=== PATIENT | male | born 1940 | race Caucasian/White ===

== ENCOUNTER 2016-08-10 21:24 | Inpatient (IN) | payer OTHER, BC ==
[2016-08-10] MEDS ORDERED: SODIUM CHLORIDE 1,000 ML IV STA (21:47)
[2016-08-10] MEDS ORDERED: FAMOTIDINE 20 MG/50 ML IVPB 50 ML IVPB ONE ×2 (21:48→21:51)
--- NOTE | 2016-08-10 21:50 | PDOC ---
History of Present Illness <Corwin Hines - Last Filed: 08/11/16 01:13> - General History Source: Patient, Family Exam Limitations: No Limitations - History of Present Illness Initial Comments: 08/10/16 21:55 The patient is a 76 year old male with significant past medical history of GERD , peptic ulcers, and vertigo who presents to the ED with epigastric pain that began earlier this morning. Patient reports he was in his usual state of health last night prior to going to bed. After having breakfast this morning, he developed epigastric pain that he describes as band-like radiating to the back. His pain subsided on its own, but never went away. After having dinner today, his epigastric pain worsened. He denies nausea, vomiting, and diarrhea. He states his last normal bowel movement was today. Patient also has complaints of chills, but no fever. The patient denies cough, SOB, chest pain, and palpitations. Allergies: NKDA Social History: No alcohol, tobacco, or drug use reported. Past Surgical History: None reported PCP: Dr. James Cordova <Leanna Minor - Last Filed: 08/11/16 01:15> - General Chief Complaint: Pain Stated Complaint: ABD PAIN Time Seen by Provider: 08/10/16 21:36 Past History - Past Medical History Diabetes: (borderline) GI Disorders: Yes - Immunization History Immunization Up to Date: Yes - Psycho/Social/Smoking Cessation Hx Suicidal Ideation: No Smoking History: Never smoked Have you smoked in the past 12 months: No Hx Alcohol Use: No Drug/Substance Use Hx: No Substance Use Type: None <Corwin Hines - Last Filed: 08/11/16 01:13> <Leanna Minor - Last Filed: 08/11/16 01:15> - Past Medical History Allergies/Adverse Reactions: Allergies Allergy/AdvReac Type Severity Reaction Status Date / Time No Known Allergies Allergy Verified 12/04/15 20:28 Home Medications: Ambulatory Orders Ipratropium 0.02% Nebulizer [Atrovent 0.02% Nebulizer -] 2 inh IH TID 12/03/15 Omeprazole [Prilosec] 40 mg PO DAILY 12/03/15 Ipratropium 0.02% Nebulizer [Atrovent 0.02% Nebulizer -] 0.5 mg IH TID 7 Days Ondansetron [Zofran Odt -] 4 mg SL TID PRN #21 od.tablet 12/04/15 Lisinopril [Prinivil] 5 mg PO DAILY #20 tablet 12/06/15 Meclizine HCl [Antivert -] 25 mg PO Q6HPO PRN #30 tablet 12/06/15 Review of Systems - Review of Systems Able to Perform ROS?: Yes Comments:: 08/10/16 21:55 +epigastric pain radiating to back, chills Absent: fever, diaphoresis, cough, SOB, chest pain, nausea, vomiting, and diarrhea <Leanna Minor - Last Filed: 08/11/16 01:15> *Physical Exam - Vital Signs Last Vital Signs Temp Pulse Resp BP Pulse Ox 100.1 F H 106 H 19 148/81 96 08/10/16 21:37 08/10/16 21:37 08/10/16 21:37 08/10/16 21:37 08/10/16 21:37 - Physical Exam General Appearance: Yes: Nourished, Appropriately Dressed. No: Apparent Distress HEENT: positive: Normal ENT Inspection Neck: positive: Supple. negative: Tender Respiratory/Chest: positive: Lungs Clear, Normal Breath Sounds. negative: Respiratory Distress Cardiovascular: positive: Regular Rhythm, Regular Rate Gastrointestinal/Abdominal: positive: Normal Bowel Sounds, Soft. negative: Tender Musculoskeletal: positive: Normal Inspection. negative: CVA Tenderness Extremity: positive: Normal Capillary Refill, Normal Range of Motion Integumentary: positive: Normal Color, Rash (rt 12th dermatome residual herpetic lesions). negative: Ecchymosis Neurologic: positive: Fully Oriented, Alert, Normal Mood/Affect, Normal Response , Motor Strength 5/5 <Corwin Hines - Last Filed: 08/11/16 01:13> - Vital Signs Last Vital Signs Temp Pulse Resp BP Pulse Ox 100.1 F H 106 H 19 148/81 96 08/10/16 21:37 08/10/16 21:37 08/10/16 21:37 08/10/16 21:37 08/10/16 21:37 <Leanna Minor - Last Filed: 08/11/16 01:15> Heart Score/ECG Review - ECG Impressions Comment:: 08/10/16 22:48 Sinus tachycardia @115bpm Otherwise normal ECG <AntonioPolly sanzvita - Last Filed: 08/11/16 01:15> ED Treatment Course - LABORATORY CBC & Chemistry Diagram: 08/10/16 22:00 08/10/16 22:00 <Corwin Hines - Last Filed: 08/11/16 01:13> - LABORATORY CBC & Chemistry Diagram: 08/10/16 22:00 08/10/16 22:00 - RADIOLOGY Radiograph Interpretation: 08/11/16 01:01 EXAM: Ultrasound abdomen limited, right upper quadrant Reviewed by Imaging quality control associate: FINDINGS: The liver is normal, without mass or biliary duct dilation. There are gallstones , sludge and wall thickening up to 4 mm. And is moderately suspicious for cholecystitis.. The CBD is dilated and [id number] millimeters in diameter, which could be due to a nonvisualized CBD stone. Right kidney measures 10.1centimeters in length and is unremarkable. The visualized aorta and IVC are normal. Pancreas is obscured. IMPRESSION: Moderate suspicion for cholecystitis with dilated CBD, which could indicate a distal nonvisualized CBD stone. Consider further evaluation with HIDA scan or MRCP. <Polly Minorvita - Last Filed: 08/11/16 01:15> Progress Note - Progress Note Progress Note: Remains asymptomatic and w/ normal exam labs are non specific and wnl except for 22 BUN continue hydration PMD informed, who wanted a hida scan which i informed we can't do. he does have hx of "sludge in the GB" but w/ no tenderness and no pain recurrence, will not keep until am for it. Will check lft's if d/c, pt will follow up at 8:30 am with his doctor 12:25 am elevated LFT's. US ordered 1:05 am acute cholecystitis d/w dr Cordova he wants dr. tobar to be called will admit to hospitalist <Corwin Hines - Last Filed: 08/11/16 01:13> Medical Decision Making - Medical Decision Making 08/10/16 23:[address] James Cordova (via answering service) at 23:08 and case was discussed Paged Dr. Cordova at 1:00 and case was discussed. 08/11/16 01:[address] Joselito Tobar (via answering service) at 1:05. Awaiting call back Patient's case was discussed with Dr. Tobar at 1:07 <Leanna Minor - Last Filed: 08/11/16 01:15> *DC/Admit/Observation/Transfer - Discharge Dispostion Admit: Yes <Corwin Hines - Last Filed: 08/11/16 01:13> - Attestations Scribe Attestion: 08/10/16 21:55 Documentation prepared by Leanna Minor, acting as medical translator for Corwin Hines MD. <Leanna Minor - Last Filed: 08/11/16 01:15> Diagnosis at time of Disposition: Acute cholecystitis due to biliary calculus Diagnosis at time of Disposition: (Ruled Out): Acute (undifferentiated) schizophrenia - Discharge Dispostion Condition at time of disposition: Good - Referrals Referrals: James Cordova MD [Primary Care Provider] -
[2016-08-10 22:06] LABS: BASOPHIL 0.1 % (0-2.0); EOSINOPHIL 0.1 % (0-4.5); MCH 31.9 pg (25.7-33.7); MCHC 33.4 g/dl (32.0-35.9); MEAN CELL VOLUME 95.6 fl (80-96); MEAN PLT VOLUME 7.7 fl (7.5-11.1); NEUTROPHILS 96.1 % (42.8-82.8); PLATELET COUNT 183 K/MM3 (134-434); RDW 13.4 % (11.9-15.9); WHITE BLOOD COUNT 10.6 K/mm3 (4.0-10.0)
[2016-08-10 22:50] LABS: CALCIUM 8.8 mg/dL (8.5-10.1); CREATININE 0.8 mg/dL (0.7-1.3)
[2016-08-11] LABS: ALBUMIN 3.7 g/dl (3.4-5.0); BILIRUBIN,TOTAL 1.7 mg/dL (0.2-1.0); TOT PROT 7.1 g/dl (6.4-8.2)
[2016-08-11 00:37] LABS: URINE APPEARANCE CLEAR; URINE BILIRUBIN NEGATIVE (NEGATIVE); URINE BLOOD NEGATIVE (NEGATIVE); URINE COLOR YELLOW; URINE GLUCOSE (UA) NEGATIVE (NEGATIVE); URINE KETONE NEGATIVE (NEGATIVE); URINE LEUK ESTERASE NEGATIVE (NEGATIVE); URINE NITRITE NEGATIVE (NEGATIVE); URINE PROTEIN NEGATIVE (NEGATIVE); URINE UROBILINOGEN NEGATIVE E.U./dl (0.2-1.0)
[2016-08-11] MEDS ORDERED: PIPERACILLIN/TAZOB 4.5 GM/100 ML PRE-DOCKED IVPB ONE (00:58)
[2016-08-11] MEDS ORDERED: METRONIDAZOLE PREMIXED IVPB 50 ML IVPB ONE (01:01)
[2016-08-11] MEDS ORDERED: PIPERACILLIN/TAZOB 4.5 GM 100 ML IVPB ONE (01:12)
[2016-08-11] MEDS ORDERED: METRONIDAZOLE 500 MG PREMIXED 100 ML IVPB ONE (01:12)
[2016-08-11] MEDS ORDERED: metroNIDAZOLE 250 MG TABLET ONE (01:23)
[2016-08-11] MEDS ORDERED: ONDANSETRON 4 MG/2 ML VIAL IVPB PRN (01:25)
[2016-08-11] MEDS ORDERED: morphine CARPU-JECT 2 MG/1 ML DISP.SYRIN IVPUSH PRN (01:25)
[2016-08-11] MEDS ORDERED: SODIUM CHLORIDE 1,000 ML IV SCH ×3 (01:30→09:33)
--- NOTE | 2016-08-11 02:28 | HP ---
CHIEF COMPLAINT: epigastric pain PCP: Dr. Cordova HISTORY OF PRESENT ILLNESS: This is a 76 year old male with a past medical history of GERD, vertigo, HTN, kidney stone, shingles with post-herpetic neuralgia who presented to the ED with epigastric pain since earlier in AM. The pain started after breakfast and then improved on its own but again worsened after dinner. Pt states the pain has almost completely resolved but nausea and "bad taste in mouth" has persisted. ER course was notable for: (1) US c/w cholecystitis (2) WBC 10.6, temp 100.1 (3) normal UA Recent Travel: none PAST MEDICAL HISTORY: GERD vertigo November 2015 kidney stones February 2016 shingles February 2016 with postherpetic neuralgia HTN-was instructed by PCP last week to restart antiHTN but didn't PAST SURGICAL HISTORY: Left inguinal? hernia repair Social History: Smoking: pt denies Alcohol: pt denies Drugs: pt denies Family History: Mother age 82, brain tumor, had cholecystectomy Father age 54, unknown cause, had DM sister age 67, CVA sister age 60, blood cancer 2 or 3 sisters with cholecystectomy Allergies No Known Allergies Allergy (Verified 12/04/15 20:28) HOME MEDICATIONS: 3 Medication Instructions Recorded Omeprazole [Prilosec] 40 mg PO DAILY 12/03/15 Pregabalin [Lyrica -] 150 mg PO TID 08/11/16 REVIEW OF SYSTEMS CONSTITUTIONAL: Absent: fever, chills, diaphoresis, generalized weakness, malaise, loss of appetite, weight change HEENT: Absent: rhinorrhea, nasal congestion, throat pain, throat swelling, difficulty swallowing, mouth swelling, ear pain, eye pain, visual changes CARDIOVASCULAR: Absent: chest pain, syncope, palpitations, irregular heart rate, lightheadedness , peripheral edema RESPIRATORY: Absent: cough, shortness of breath, dyspnea with exertion, orthopnea, wheezing, stridor, hemoptysis GASTROINTESTINAL: Present: abdominal pain, nausea Absent: abdominal distension, vomiting, diarrhea, constipation, melena, hematochezia GENITOURINARY: Absent: dysuria, frequency, urgency, hesitancy, hematuria, flank pain, genital pain MUSCULOSKELETAL: Absent: myalgia, arthralgia, joint swelling, back pain, neck pain SKIN: Absent: rash, itching, pallor HEMATOLOGIC/IMMUNOLOGIC: Absent: easy bleeding, easy bruising, lymphadenopathy, frequent infections ENDOCRINE: Absent: unexplained weight gain, unexplained weight loss, heat intolerance, cold intolerance NEUROLOGIC: Absent: headache, focal weakness or paresthesias, dizziness, unsteady gait, seizure, mental status changes, bladder or bowel incontinence PSYCHIATRIC: Absent: anxiety, depression, suicidal or homicidal ideation, hallucinations. PHYSICAL EXAMINATION Vital Signs - 24 hr 3 08/10/16 21:37 Temperature 100.1 F H Pulse Rate 106 H Respiratory 19 Rate Blood Pressure 148/81 O2 Sat by Pulse 96 Oximetry (%) GENERAL: Awake, alert, and fully oriented, in no acute distress. HEAD: Normal with no signs of trauma. EYES: Pupils equal, round and reactive to light, extraocular movements intact, sclera anicteric, conjunctiva clear. No lid lag. EARS, NOSE, THROAT: Ears normal, nares patent, oropharynx clear without exudates. Moist mucous membranes. NECK: Normal range of motion, supple without lymphadenopathy, JVD, or masses. LUNGS: Breath sounds equal, clear to auscultation bilaterally. No wheezes, and no crackles. No accessory muscle use. HEART: Regular rate and rhythm, normal S1 and S2 without murmur, rub or gallop. ABDOMEN: Soft, nontender, not distended, normoactive bowel sounds, no guarding, no rebound, no masses. No hepatomegaly or splenomegaly. MUSCULOSKELETAL: Normal range of motion at all joints. No bony deformities or tenderness. No CVA tenderness. UPPER EXTREMITIES: 2+ pulses, warm, well-perfused. No cyanosis. No clubbing. Cap refill <2 seconds. No peripheral edema. LOWER EXTREMITIES: 2+ pulses, warm, well-perfused. No calf tenderness. No peripheral edema. NEUROLOGICAL: Cranial nerves II-XII intact. Normal speech. Normal gait. PSYCHIATRIC: Cooperative. Good eye contact. Appropriate mood and affect. SKIN: Warm, dry, normal turgor, no rashes or lesions noted. Right flank and right lower libs noted with scarring from previous shingles, no active blisters or lesions Laboratory Results - last 24 hr 3 08/10/16 08/10/16 08/10/16 22:00 22:00 23:33 WBC 10.6 H D RBC 3.80 L Hgb 12.1 Hct 36.4 MCV 95.6 MCHC 33.4 RDW 13.4 Plt Count 183 MPV 7.7 Neutrophils % 96.1 H Lymphocytes % 2.7 L D Monocytes % 1.0 L Eosinophils % 0.1 D Basophils % 0.1 Sodium 140 Potassium 3.8 Chloride 105 Carbon Dioxide 26 Anion Gap 9 BUN 22 H D Creatinine 0.8 Random Glucose 130 H D Calcium 8.8 Total Bilirubin 1.7 H D Direct Bilirubin 1.0 H AST 621 H D ALT 309 H D Alkaline Phosphatase 220 H D Total Protein 7.1 Albumin 3.7 Lipase 95 Urine Color Urine Appearance Urine pH Ur Specific [place] Urine Protein Urine Glucose (UA) Urine Ketones Urine Blood Urine Nitrite Urine Bilirubin Urine Urobilinogen Ur Leukocyte Esterase 3 Urine Color Yellow 08/11/16 00:01 Urine Appearance Clear 08/11/16 00:01 Urine pH 7.0 (5.0-8.0) 08/11/16 00:01 Ur Specific [place] 1.012 (1.001-1.035) 08/11/16 00:01 Urine Protein Negative (NEGATIVE) 08/11/16 00:01 Urine Glucose (UA) Negative (NEGATIVE) 08/11/16 00:01 Urine Ketones Negative (NEGATIVE) 08/11/16 00:01 Urine Blood Negative (NEGATIVE) 08/11/16 00:01 Urine Nitrite Negative (NEGATIVE) 08/11/16 00:01 Urine Bilirubin Negative (NEGATIVE) 08/11/16 00:01 Ur Leukocyte Esterase Negative (NEGATIVE) 08/11/16 00:01 ECG: sinus tachy, rate 115, QTC 456, no ST/T wave changes CXR: Impression: No significant interval change or acute lung disease is present. US abd limited: Impression: Moderate suspicion for cholecystitis with dilated CBD, which could indicate a distal nonvisualized CBD stone. ASSESSMENT/PLAN: 76yM with PMH GERD, vertigo, shingles, post-herpetic neuralgia, HTN presented with epigastric pain. He is being admitted for further evaluation and treatment of cholecystitis/cholelithiasis. Sepsis secondary to cholecystitis - + fever, tachycardia, leukocytosis - levaquin 500mg QD, flagyl 500mg Q8H - NPO - MRCP given significant elevation of LFTs with hyperbilirubinemia to r/o choledocholithiasis - surgical consult HTN - restart home lisinopril 5mg, monitor BP, hold if SBP less than 110 post-herpetic neuralgia - cont home lyrica GERD - home prilosec changed to formulary protonix FEN - NS@75cc/hr - REpeat BMP with LFTS in am. - NPO DVT prophylaxis - mod risk, but defer heparin for now as will likely need surgery Dispo: Pt currently requires inpatient care. 640AM Addendum PCP Dr. James Cordova requested update at 630 am. Case DW PCP who Requests HIDA scan. Advised PCP that MRCP will show CBD and no need for HIDA as sono has already shown acute cholecystitis. PCP adamant that HIDA scan be ordered and GI consult with Dr. Lowe ONLY. Orders placed. Visit type - Emergency Visit Emergency Visit: Yes ED Registration Date: 08/10/16 Care time: The patient presented to the Emergency Department on the above date and was hospitalized for further evaluation of their emergent condition. - New Patient This patient is new to me today: Yes Date on this admission: 08/11/16 - Critical Care Critical Care patient: No
[2016-08-11 04:22] VITALS: BMI 23.6
[2016-08-11 07:30] LABS: BASOPHIL 0.1 % (0-2.0); MCH 32.2 pg (25.7-33.7); MCHC 33.8 g/dl (32.0-35.9); MEAN CELL VOLUME 95.3 fl (80-96); MEAN PLT VOLUME 7.4 fl (7.5-11.1); NEUTROPHILS 93.3 % (42.8-82.8); PLATELET COUNT 150 K/MM3 (134-434); RDW 13.4 % (11.9-15.9); WHITE BLOOD COUNT 16.1 K/mm3 (4.0-10.0)
[2016-08-11] MEDS ORDERED: LEVOFLOXACIN 500 MG IVPB 100 ML IVPB SCH ×2 (08:00→10:00)
[2016-08-11 08:15] LABS: ALK PHOS 235 U/L (45-117); AMYLASE 23 U/L (25-115); ANION GAP 10 (8-16); BILIRUBIN,TOTAL 2.5 mg/dL (0.2-1.0); CALCIUM 8.3 mg/dL (8.5-10.1); CO2 24 mmol/L (21-32); CREATININE 0.9 mg/dL (0.7-1.3); GLUCOSE,RANDOM 133 mg/dL (74-106); MAGNESIUM 1.7 mg/dL (1.8-2.4); PHOSPHOROUS 1.9 mg/dL (2.5-4.9)
[2016-08-11 08:24] LABS: SGOT/AST 1454 U/L (15-37); SGPT/ALT 967 U/L (12-78)
[2016-08-11 09:05] LABS: INR 1.43 (0.82-1.09); PROTHROMBIN TIME (PATIENT) 15.9 SEC (9.98-11.88)
[2016-08-11 09:08] LABS: ACTIVATED PTT 29.6 SECONDS (26.9-34.4)
[2016-08-11] MEDS ORDERED: PIPERACILLIN/TAZOB 3.375 GM/50 ML PRE-DOCKED IVPB STA (09:08)
[2016-08-11] MEDS ORDERED: METRONIDAZOLE 500 MG PREMIXED 100 ML IVPB SCH (10:00)
[2016-08-11] MEDS ORDERED: PATIENT'S OWN MEDICATION (NON-FORMULARY) (Omeprazole [Prilosec] 40 MG) PO SCH (10:00)
--- NOTE | 2016-08-11 10:00 | CONSULT ---
Consultation: REQUESTING PROVIDER: Dr. Tobar, general surgery CONSULT REQUEST: We have been asked to surgically evaluate this patient for Cholecystitis. HISTORY OF PRESENT ILLNESS: 76 yo M presented to [facility] 08/10/16 complaining of epigastric abdominal pain. Patient has experienced this pain before, but states it worsened yesterday after eating yogurt for breakfast and potatoes for lunch. The pain radiates throughout his abdomen and to his back. The patient states he was previously seen by GI as an outpatient, but states "nothing was found". The patient states his pain is improving today. He had some associated nausea, denies vomiting, diarrhea, constipation, fever, chills. Last meal was lunchtime yesterday, last BM was yesterday and solid. Patient states he does take Prilosec. PMH: GERD, peptic ulcers, shingles February 2016 PSH: Left inguinal hernia repair PCP: Dr. James Cordova Social: Denies tobacco or alcohol use Allergies: NKDA Medications: Medication Instructions Recorded Omeprazole [Prilosec] 40 mg PO DAILY 12/03/15 Pregabalin [Lyrica -] 150 mg PO TID 08/11/16 REVIEW OF SYSTEMS: CONSTITUTIONAL: Absent: fever, chills, diaphoresis, generalized weakness, malaise, loss of appetite, weight change CARDIOVASCULAR: Absent: chest pain, syncope, palpitations, irregular heart rate, lightheadedness , peripheral edema RESPIRATORY: Absent: cough, shortness of breath, dyspnea with exertion, orthopnea, wheezing, stridor, hemoptysis GASTROINTESTINAL: Present: abdominal pain/epigastric Absent: abdominal distension, nausea, vomiting, diarrhea, constipation, melena, hematochezia GENITOURINARY: Absent: dysuria, frequency, urgency, hesitancy, hematuria, flank pain, genital pain MUSCULOSKELETAL: Absent: myalgia, arthralgia, joint swelling, back pain, neck pain SKIN: Absent: rash, itching, pallor HEMATOLOGIC/IMMUNOLOGIC: Absent: easy bleeding, easy bruising, lymphadenopathy, frequent infections NEUROLOGIC: Absent: headache, focal weakness or paresthesias, dizziness, unsteady gait, seizure, mental status changes, bladder or bowel incontinence PSYCHIATRIC: Absent: anxiety, depression, suicidal or homicidal ideation, hallucinations. PHYSICAL EXAMINATION Vital Signs Temperature 99.3 F 08/11/16 05:37 Pulse Rate 105 H 08/11/16 05:37 Respiratory Rate 19 08/11/16 05:37 Blood Pressure 118/79 08/11/16 05:37 O2 Sat by Pulse Oximetry (%) 97 08/11/16 03:34 GENERAL: Awake, alert, and fully oriented, in no acute distress. HEAD: Normal with no signs of trauma. EYES: Pupils equal, round and reactive to light, sclera anicteric, conjunctiva clear. NECK: Normal range of motion, supple without lymphadenopathy, JVD, or masses. LUNGS: Breath sounds equal, clear to auscultation bilaterally. No wheezes, and no crackles. No accessory muscle use. HEART: Regular rate and rhythm, normal S1 and S2 without murmur, rub or gallop. ABDOMEN: Healed shingles rash scar noted right abdomen, soft, nontender, not distended, normoactive bowel sounds, no guarding, no rebound, no masses. No hepatomegaly or splenomegaly. No murphys sign MUSCULOSKELETAL: Normal range of motion at all joints. No bony deformities or tenderness. No CVA tenderness. UPPER EXTREMITIES: 2+ pulses, warm, well-perfused. No cyanosis. Cap refill <2 seconds. No peripheral edema. LOWER EXTREMITIES: warm, well-perfused. No calf tenderness. No peripheral edema. NEUROLOGICAL: Normal speech, gait not observed. PSYCH: Cooperative. Good eye contact. Appropriate mood and affect. SKIN: Warm, dry, normal turgor, no rashes or lesions noted. LABS: Laboratory Results - last 24 hr CBC, BMP 08/11/16 06:00 08/11/16 06:00 Hepatic Panel Total Bilirubin 2.5 mg/dL (0.2-1.0) H D 08/11/16 06:00 Direct Bilirubin 1.0 mg/dL (0.0-0.2) H 08/10/16 23:33 AST 1454 U/L (15-37) H 08/11/16 06:00 ALT 967 U/L (12-78) H D 08/11/16 06:00 Alkaline Phosphatase 235 U/L (45-117) H 08/11/16 06:00 Albumin 3.0 g/dl (3.4-5.0) L 08/11/16 06:00 RUQ US: gallstones, sludge, wall thickening, moderate suspicion for cholecystitis with dilated CBD, possible nonvisualized CBD stone <Virginie Read - Last Filed: 08/11/16 10:13> Consultation: REQUESTING PROVIDER: CONSULT REQUEST: We have been asked to surgically evaluate this patient for ( specify). HISTORY OF PRESENT ILLNESS: REVIEW OF SYSTEMS: CONSTITUTIONAL: Absent: fever, chills, diaphoresis, generalized weakness, malaise, loss of appetite, weight change CARDIOVASCULAR: Absent: chest pain, syncope, palpitations, irregular heart rate, lightheadedness , peripheral edema RESPIRATORY: Absent: cough, shortness of breath, dyspnea with exertion, orthopnea, wheezing, stridor, hemoptysis GASTROINTESTINAL: Absent: abdominal pain, abdominal distension, nausea, vomiting, diarrhea, constipation, melena, hematochezia GENITOURINARY: Absent: dysuria, frequency, urgency, hesitancy, hematuria, flank pain, genital pain MUSCULOSKELETAL: Absent: myalgia, arthralgia, joint swelling, back pain, neck pain SKIN: Absent: rash, itching, pallor HEMATOLOGIC/IMMUNOLOGIC: Absent: easy bleeding, easy bruising, lymphadenopathy, frequent infections NEUROLOGIC: Absent: headache, focal weakness or paresthesias, dizziness, unsteady gait, seizure, mental status changes, bladder or bowel incontinence PSYCHIATRIC: Absent: anxiety, depression, suicidal or homicidal ideation, hallucinations. PHYSICAL EXAMINATION Vital Signs Temperature 97.8 F 08/11/16 13:33 Pulse Rate 75 08/11/16 13:33 Respiratory Rate 20 08/11/16 13:33 Blood Pressure 119/73 08/11/16 13:33 O2 Sat by Pulse Oximetry (%) 97 08/11/16 03:34 GENERAL: Awake, alert, and fully oriented, in no acute distress. HEAD: Normal with no signs of trauma. EYES: Pupils equal, round and reactive to light, sclera anicteric, conjunctiva clear. NECK: Normal range of motion, supple without lymphadenopathy, JVD, or masses. LUNGS: Breath sounds equal, clear to auscultation bilaterally. No wheezes, and no crackles. No accessory muscle use. HEART: Regular rate and rhythm, normal S1 and S2 without murmur, rub or gallop. ABDOMEN: Soft, nontender, not distended, normoactive bowel sounds, no guarding, no rebound, no masses. No hepatomegaly or splenomegaly. MUSCULOSKELETAL: Normal range of motion at all joints. No bony deformities or tenderness. No CVA tenderness. UPPER EXTREMITIES: 2+ pulses, warm, well-perfused. No cyanosis. Cap refill <2 seconds. No peripheral edema. LOWER EXTREMITIES: 2+ pulses, warm, well-perfused. No calf tenderness. No peripheral edema. NEUROLOGICAL: Normal speech, gait not observed. PSYCH: Cooperative. Good eye contact. Appropriate mood and affect. SKIN: Warm, dry, normal turgor, no rashes or lesions noted. LABS: Laboratory Results - last 24 hr 08/11/16 08/11/16 08/11/16 06:00 06:00 06:00 WBC 16.1 H D RBC 3.49 L Hgb 11.2 L Hct 33.2 L MCV 95.3 MCHC 33.8 RDW 13.4 Plt Count 150 MPV 7.4 L Neutrophils % 93.3 H Lymphocytes % 2.5 L Monocytes % 4.1 D Eosinophils % 0.0 D Basophils % 0.1 INR PTT (Actin FS) Sodium 140 Potassium 3.6 Chloride 106 Carbon Dioxide 24 Anion Gap 10 BUN 16 D Creatinine 0.9 Creat Clearance w eGFR > 60 Random Glucose 133 H Hemoglobin A1c % Lactic Acid Calcium 8.3 L Phosphorus 1.9 L D Magnesium 1.7 L D Total Bilirubin 2.5 H D AST 1454 H ALT 967 H D Alkaline Phosphatase 235 H Total Protein 6.0 L Albumin 3.0 L Total Amylase 23 L Cancelled Urine Color Urine Appearance Urine pH Ur Specific [place] Urine Protein Urine Glucose (UA) Urine Ketones Urine Blood Urine Nitrite Urine Bilirubin Urine Urobilinogen Ur Leukocyte Esterase Stool Occult Blood 08/11/16 08/11/16 08/11/16 06:00 08:25 08:25 WBC RBC Hgb Hct MCV MCHC RDW Plt Count MPV Neutrophils % Lymphocytes % Monocytes % Eosinophils % Basophils % INR 1.43 H PTT (Actin FS) 29.6 Sodium Potassium Chloride Carbon Dioxide Anion Gap BUN Creatinine Creat Clearance w eGFR Random Glucose Hemoglobin A1c % 5.6 Lactic Acid 1.357 Calcium Phosphorus Magnesium Total Bilirubin AST ALT Alkaline Phosphatase Total Protein Albumin Total Amylase Urine Color Urine Appearance Urine pH Ur Specific [place] Urine Protein Urine Glucose (UA) Urine Ketones Urine Blood Urine Nitrite Urine Bilirubin Urine Urobilinogen Ur Leukocyte Esterase Stool Occult Blood 08/11/16 08/11/16 10:15 11:30 WBC RBC Hgb Hct MCV MCHC RDW Plt Count MPV Neutrophils % Lymphocytes % Monocytes % Eosinophils % Basophils % INR PTT (Actin FS) Sodium Potassium Chloride Carbon Dioxide Anion Gap BUN Creatinine Creat Clearance w eGFR Random Glucose Hemoglobin A1c % Lactic Acid Calcium Phosphorus Magnesium Total Bilirubin AST ALT Alkaline Phosphatase Total Protein Albumin Total Amylase Urine Color J[place]elyn Urine Appearance Clear Urine pH 6.0 Ur Specific [place] 1.016 Urine Protein Negative Urine Glucose (UA) Negative Urine Ketones Negative Urine Blood Negative Urine Nitrite Negative Urine Bilirubin Negative Urine Urobilinogen 2.0 e.u/dl Ur Leukocyte Esterase Negative Stool Occult Blood Negative Surgery Attending Patient seen and examined. Agree with the general content and recommendation of GORAN Read's note. Patient has complicated gallstone disease with possible choledocholithiasis and ascending cholanigitis in addition to cholecystitis. Agree with MRCP possible ERCP prior to cholecystectomy. Continue antibiotics. Will follow. <Joselito Tobar - Last Filed: 08/11/16 15:43> Problem List - Problems (1) Acute cholecystitis due to biliary calculus Assessment/Plan: Increasing bilirubin, LFTs, WBC mild tachycardia GI consult for ERCP, possible CBD stone Lap cholecystectomy possibly tomorrow following ERCP NPO, IV fluids IV protonix Continue IV abx Discussed with Dr. Tobar Code(s): K80.00 - CALCULUS OF GALLBLADDER W ACUTE CHOLECYST W/O OBSTRUCTION <Virginie Read - Last Filed: 08/11/16 10:13> Visit type - Case Type Case Type: ED Admission - New patient This patient is new to me today: Yes Date on this admission: 08/11/16 <Virginie Read - Last Filed: 08/11/16 10:13>
--- NOTE | 2016-08-11 10:44 | CONSULT ---
Consultation: REQUESTING PROVIDER:Carolina Varma CONSULT REQUEST: We have been asked to medically evaluate this patient for ( Cholecystitis). HISTORY OF PRESENT ILLNESS: 76 year old male with pmh of GERD, Kidney stone, shingles with post herpetic neuralgia presented to the ED complaining of epigastric pain. THe pain started yesterday morning after eating yogurt patient mild to moderate cramping epigastric pain, nausea which resolved. After dinner pt started having epigastric pain again this time 9/10, cramping, radiating to the back, lasting hours. Pt also had nausea but no vomiting. Pt had fever and chills but no dizziness, confusion or weakness. Pt has this pain before and it is usually associated with food but it was never so severe and never lasting so long, and is usually not accompanied by other symptoms. Pt has a h/o of heart burn and complained of bad taste, sour taste in his mouth and he takes Prilosec. Currently all the symptoms has dissipated no more pain, nausea, no heartburn. PMH: GERD, Kidney stone, shingles with post herpetic neuralgia, HTN PSHL left inguinal hernia repair Social History: denies smoking, alcohol and recreational drugs FH: Multiple family members with cholecystectomy. NKA REVIEW OF SYSTEMS: CONSTITUTIONAL: fever, chills Absent: diaphoresis, generalized weakness, malaise, loss of appetite, weight change HEENT: Absent: rhinorrhea, nasal congestion, throat pain, throat swelling, difficulty swallowing, mouth swelling, ear pain, eye pain, visual changes CARDIOVASCULAR: Absent: chest pain, syncope, palpitations, lightheadedness, peripheral edema RESPIRATORY: cough, Absent: shortness of breath, dyspnea with exertion, hemoptysis GASTROINTESTINAL:abdominal pain, nausea, Absent: abdominal distension, vomiting, diarrhea, constipation, melena, hematochezia GENITOURINARY: Absent: dysuria, frequency, urgency, hesitancy, hematuria, flank pain, genital pain MUSCULOSKELETAL: Absent: myalgia, arthralgia, joint swelling, back pain, neck pain SKIN: Absent: rash, itching, pallor NEUROLOGIC: Absent: headache, focal weakness or paresthesias, dizziness, PHYSICAL EXAMINATION Vital Signs - 24 hr 08/11/16 08/11/16 08/11/16 02:09 03:34 04:14 Temperature 99.3 F 97.9 F Pulse Rate 101 H Pulse Rate [ 101 H Left Radial] Respiratory 19 19 Rate Blood Pressure 113/81 Blood Pressure 130/81 [Left Arm] O2 Sat by Pulse 98 97 Oximetry (%) 08/11/16 05:37 Temperature 99.3 F Pulse Rate 105 H Pulse Rate [ Left Radial] Respiratory 19 Rate Blood Pressure 118/79 Blood Pressure [Left Arm] O2 Sat by Pulse Oximetry (%) Temp 100.9 rectally, HR 90, BP 118/70, RR 16, O2 sat 95% GENERAL: Awake, alert, and fully oriented, in no acute distress. HEAD: Normal with no signs of trauma. EYES: Pupils equal, round and reactive to light, extraocular movements intact, sclera anicteric, conjunctiva clear. No lid lag. EARS, NOSE, THROAT: Ears normal, nares patent, oropharynx clear without exudates. Moist mucous membranes. LUNGS: Breath sounds equal, clear to auscultation bilaterally. No wheezes, and no crackles. No accessory muscle use. HEART: Regular rate and rhythm, normal S1 and S2 without murmur, rub or gallop. ABDOMEN: Right brown patchy macular discolaration from right chest/abdomen to right back. Multiple small red/pink papule in chest and upper abdomen (likely hemangiomas). Right flank with skin tag. Soft, nontender, not distended, normoactive bowel sounds, no guarding, no rebound, no masses. Negative baires and psoas signs. No hepatomegaly or splenomegaly. Recatl exam with small external hemorrhoid, no fissure, no mass felt, no tenderness on rectal exam, min brown, non bloody stool in rectal vault. MUSCULOSKELETAL: Normal range of motion at all joints. No bony deformities or tenderness. No CVA tenderness. UPPER EXTREMITIES: 2+ pulses, warm, well-perfused. No cyanosis. No clubbing. Cap refill <2 seconds. No peripheral edema. LOWER EXTREMITIES: 2+ pulses, warm, well-perfused. No calf tenderness. No peripheral edema. NEUROLOGICAL: Normal speech. gait not observed. PSYCHIATRIC: Cooperative. Good eye contact. Appropriate mood and affect. Laboratory Results - last 24 hr 08/11/16 08/11/16 08/11/16 06:00 06:00 06:00 WBC 16.1 H D RBC 3.49 L Hgb 11.2 L Hct 33.2 L MCV 95.3 MCHC 33.8 RDW 13.4 Plt Count 150 MPV 7.4 L Neutrophils % 93.3 H Lymphocytes % 2.5 L Monocytes % 4.1 D Eosinophils % 0.0 D Basophils % 0.1 INR PTT (Actin FS) Sodium 140 Potassium 3.6 Chloride 106 Carbon Dioxide 24 Anion Gap 10 BUN 16 D Creatinine 0.9 Creat Clearance w eGFR > 60 Random Glucose 133 H Lactic Acid Calcium 8.3 L Phosphorus 1.9 L D Magnesium 1.7 L D Total Bilirubin 2.5 H D AST 1454 H ALT 967 H D Alkaline Phosphatase 235 H Total Protein 6.0 L Albumin 3.0 L Total Amylase 23 L Cancelled 08/11/16 08/11/16 08:25 08:25 WBC RBC Hgb Hct MCV MCHC RDW Plt Count MPV Neutrophils % Lymphocytes % Monocytes % Eosinophils % Basophils % INR 1.43 H PTT (Actin FS) 29.6 Sodium Potassium Chloride Carbon Dioxide Anion Gap BUN Creatinine Creat Clearance w eGFR Random Glucose Lactic Acid 1.357 Calcium Phosphorus Magnesium Total Bilirubin AST ALT Alkaline Phosphatase Total Protein Albumin Total Amylase Active Medications Generic Name Dose Route Start Last Admin Trade Name Freq PRN Reason Stop Dose Admin Sodium Chloride 1,000 mls @ 1,000 mls/hr 08/11/16 09:10 Normal Saline - IV ASDIR SULEIMAN Sodium Chloride 1,000 mls @ 125 mls/hr 08/11/16 09:33 Normal Saline - IV ASDIR SULEIMAN Lisinopril 5 mg 08/11/16 10:00 Prinivil PO DAILY [facility] Morphine Sulfate 2 mg 08/11/16 01:25 Morphine Injection - IVPUSH Q4H PRN PAIN Ondansetron HCl 4 mg 08/11/16 01:25 Zofran Injection IVPB Q6H PRN NAUSEA Pantoprazole Sodium 40 mg 08/11/16 10:00 Protonix - PO DAILY SULEIMAN Piperacillin Sod/Tazobactam Sod 3.375 gm 08/11/16 09:08 Zosyn 3.375gm Ivpb (Pre-Docked) IVPB 08/11/16 09:09 Q8H-IV STA Pregabalin 150 mg 08/11/16 10:00 Lyrica - PO BID SULEIMAN CBC, BMP 08/11/16 06:00 08/11/16 06:00 Laboratory Tests 08/10/16 08/10/16 08/11/16 22:00 23:33 00:01 INR PTT (Actin FS) Lactic Acid Calcium Phosphorus Magnesium Total Bilirubin 1.7 H D AST ALT Alkaline Phosphatase Total Protein Albumin Total Amylase Lipase 95 Urine Blood Negative Urine Nitrite Negative Urine Urobilinogen Negative Ur Leukocyte Esterase Negative 08/11/16 08/11/16 08/11/16 06:00 08:25 08:25 INR 1.43 H PTT (Actin FS) 29.6 Lactic Acid 1.357 Calcium 8.3 L Phosphorus 1.9 L D Magnesium 1.7 L D Total Bilirubin 2.5 H D AST 1454 H ALT 967 H D Alkaline Phosphatase 235 H Total Protein 6.0 L Albumin 3.0 L Total Amylase 23 L Lipase Urine Blood Urine Nitrite Urine Urobilinogen Ur Leukocyte Esterase CT abdomen and Pelvis 12/27/15: 1 Bilateral nephrolithiasis with no evidence of urinary tract masses or obstructive uropathy. 2. Cholelithiasis. The liver, spleen, pancreas, adrenal glands and kidneys demonstrate no significant abnormalities. There are faintly opaque gallstones within the gallbladder with prominence of the biliary tree. No obvious obstruction is suggested. 3. Right inguinal hernia. 4. Prostatic enlargement, no acute pathology within the abdomen or pelvis. US abdomen 08/11/16: Moderate suspicion for cholecystitis with dilated CBD which could indicate a distal nonvisualized CBD stone. Consider further evaluation with HIDA scan or MRCP. ASSESSMENT/PLAN: 76 year old with h/o GERD, epigastric pain associated with food present with severe Acute epigastria cramping pain lasting hours, nausea, fever, chills, worsening leukocytosis, worsening AST, ALT, ALP and bilirubin while having negative amylase and lipase. US showed cholecystitis with dilated common bile duct makes me worry about Choledolithiasis with cholangitis. Should also consider Acute hepatitis viral, alcohol, drug although it is less likely. Pancreatitis was ruled out to nl lipase and amylase. Pain is unlikely from post herpetic neuralgia since there is LFT changes. Consider the possibility of mass in head of pancreas obstructing to bile duct but none was seen prior CT abdomen from 12/27/15 Plan We already know that pt has cholecystis so HIDA scan is not necessary Will do MRCP today and ERCP tomorrow due to dilated common bile, it is very possible there is a stone or less likely an ampullary mass. Surgery was consulted Pt may proceed to cholecystectomy post ERCP NPO IVF Antibiotic per ID with Gram negative and anaerobes coverage Pain control per primary team Antiemtic PRN Trend LFTS Dispo: We will continue to follow the patient. Thank you for this consultative opportunity. Visit type - Emergency Visit Emergency Visit: Yes ED Registration Date: 08/11/16 Care time: The patient presented to the Emergency Department on the above date and was hospitalized for further evaluation of their emergent condition. - New Patient This patient is new to me today: Yes Date on this admission: 08/11/16 - Critical Care Critical Care patient: No
[2016-08-11] MEDS ORDERED: ACETAMINOPHEN 650 MG SUPP.RECT PR PRN (11:10)
[2016-08-11] MEDS: PREGABALIN 75 MG CAPSULE PO SCH ×2 (11:12→21:27)
--- NOTE | 2016-08-11 11:45 | PN ---
Teaching Attending Note Name of Resident: Kemar Abbott ATTENDING PHYSICIAN STATEMENT I saw and evaluated the patient. I reviewed the resident's note and discussed the case with the resident. I agree with the resident's findings and plan as documented. SUBJECTIVE: 76M with acute onset upper abdominal pain, nausea last night radiating to the back Describes similar episodes in the past (predating his RUQ shingles episode) + chills at home OBJECTIVE: T: 100.9 (rectal) P: 90 BP: 118/70 O2 sat: 95% Anicteric Hrt : RRR Lungs: CTA B/L Abd: + pierre hemangioma's, + discoloration from shingles in RUQ, Sft, very mild if any TTP in the RUQ. No baires's sign, no guarding/rebound Ext: no edema On imaging: Dilated CBD 12mm (of note previous CT scan 12/[address] Solo. CBD dilatation was present at that time as well. It seemed to extend down to the ampulla without obvious obstruction) ASSESSMENT: Upper abdominal pain / abnormal LFTs / Dilated CBD (chronic) Differential would include biliary sepsis secondary to retained stool / ampullary process leading to biliary obstruction / cholecystitis. Less likely vascular etiology such as portal vein thrombosis Plan: NPO Broad spectrum IV Abx MRCP ordered stat for today Discussed possible ERCP with Mr. Donis and his family who was present bedside. Discussed potential risks of the procedure like but not limited to bleeding, perforation requiring surgery to repair, infection, sedation medication effects, pancreatitis all of which could be potentially life threatening. They have agreed to the procedure if it was felt to be clinically indicated
[2016-08-11 12:34] LABS: URINE APPEARANCE CLEAR; URINE BILIRUBIN NEGATIVE (NEGATIVE); URINE BLOOD NEGATIVE (NEGATIVE); URINE COLOR AMBER; URINE GLUCOSE (UA) NEGATIVE (NEGATIVE); URINE KETONE NEGATIVE (NEGATIVE); URINE LEUK ESTERASE NEGATIVE (NEGATIVE); URINE NITRITE NEGATIVE (NEGATIVE); URINE PROTEIN NEGATIVE (NEGATIVE); URINE UROBILINOGEN 2.0 E.U/dl E.U./dl (0.2-1.0)
[2016-08-11] MEDS: PANTOPRAZOLE 40 MG TABLET (FP) PO SCH (12:59)
[2016-08-11] MEDS: LISINOPRIL 5 MG TABLET (FP) PO SCH (13:00)
--- NOTE | 2016-08-11 13:15 | CONSULT ---
Consult Consult Specialty:: infectious diseases Reason for Consultation:: abd pain,cholyestitis/colangitis - History of Present Illness Chief Complaint: abd pain ruq History of Present Illness: This is a 76 year old male with a past medical history of GERD, vertigo, HTN, kidney stone, shingles with post-herpetic neuralgia who was admitted with epigastric pain since earlier in AM. The pain started after breakfast and then improved on its own but again worsened after dinner. Pt states the pain has almost completely resolved but nausea and "bad taste in mouth" has persisted. according tot he patient the patient has discomfort now but no pain Pt also had nausea and fever but no vomiting. . Pt has this pain before and it is usually associated with food but it was never so severe and never lasting so long, and is usually not accompanied by other symptoms. Pt has a h/o of heart burn and complained of bad taste, sour taste in his mouth and he takes Prilosec. on work up patient has dilated cbd 12mm patient had symptoms before and previous imaging studies does show dilated cbd, - History Source History Provided By: Patient, Medical Record Limitations to Obtaining History: Language Barrier - Alcohol/Substance Use Hx Alcohol Use: No - Smoking History Smoking history: Never smoked Have you smoked in the past 12 months: No Home Medications - Allergies Allergies/Adverse Reactions: Allergies Allergy/AdvReac Type Severity Reaction Status Date / Time No Known Allergies Allergy Verified 12/04/15 20:28 - Home Medications Home Medications: Ambulatory Orders Omeprazole [Prilosec] 40 mg PO DAILY 12/03/15 Pregabalin [Lyrica -] 150 mg PO TID 08/11/16 Review of Systems - Review of Systems Constitutional: reports: Fever, Other Eyes: reports: No Symptoms HENT: reports: No Symptoms Neck: reports: No Symptoms Cardiovascular: reports: No Symptoms Respiratory: reports: No Symptoms Gastrointestinal: reports: Abdominal Pain, Nausea, Other Genitourinary: reports: No Symptoms Integumentary: reports: No Symptoms Neurological: reports: No Symptoms Endocrine: reports: No Symptoms Hematology/Lymphatic: reports: No Symptoms Psychiatric: reports: No Symptoms Physical Exam Vital Signs: Vital Signs Temperature 100.9 F H 08/11/16 10:00 Pulse Rate 90 08/11/16 10:00 Respiratory Rate 20 08/11/16 10:00 Blood Pressure 118/90 08/11/16 10:00 O2 Sat by Pulse Oximetry (%) 97 08/11/16 03:34 Constitutional: Yes: Well Nourished, Calm, Mild Distress Eyes: Yes: Conjunctiva Clear HENT: Yes: WNL, Atraumatic Neck: Yes: Supple Cardiovascular: Yes: Regular Rate and Rhythm Respiratory: Yes: Regular, CTA Bilaterally Gastrointestinal: Yes: Soft, Other (discomfort in the ruq,no tendereness) Musculoskeletal: Yes: WNL Extremities: Yes: WNL Integumentary: Yes: Other (patient has marking from previous shingles episode) Neurological: Yes: Alert, Oriented Psychiatric: Yes: Alert, Oriented Labs: CBC, BMP 08/11/16 06:00 08/11/16 06:00 Imaging - Results Ultrasound: Report Reviewed, Image Reviewed Assessment/Plan after looking at the patient history and imaging and studies from before this process has been ongoing for quite some time now Sepsis secondary to cholecystitis HTN post-herpetic neuralgia plan will start the patient on abx i think ercp should be done followed by abigail continue to monitor lft a electrolyts and fever
--- NOTE | 2016-08-11 13:50 | PN ---
Physical Exam: SUBJECTIVE: Patient seen and examined at bedside. Has mild abdominal pain. No nausea, no vomiting. No fever, sweats, chills. OBJECTIVE: Vital Signs Period Temp Pulse Resp BP Sys/Rubio Pulse Ox Last 24 Hr 97.8 F-100.9 F 75-105 19-20 113-130/73-90 97-98 GENERAL: The patient is awake, alert, and fully oriented, in no acute distress. HEAD: Normal with no signs of trauma. EYES: PERRL, extraocular movements intact, sclera anicteric, conjunctiva clear. No ptosis. LUNGS: Breath sounds equal, clear to auscultation bilaterally, no wheezes, no crackles, no accessory muscle use. HEART: Regular rate and rhythm, S1, S2 without murmur, rub or gallop. ABDOMEN: Soft, nontender, nondistended, hypoactive bowel sounds; neg Carrera's sign, no guarding, no rebound EXTREMITIES: 2+ pulses, warm, well-perfused, no edema. NEUROLOGICAL: Cranial nerves II through XII grossly intact. Normal speech, gait not observed. SKIN: not jaundiced Laboratory Results - last 24 hr 08/11/16 08/11/16 08/11/16 06:00 06:00 06:00 WBC 16.1 H D RBC 3.49 L Hgb 11.2 L Hct 33.2 L MCV 95.3 MCHC 33.8 RDW 13.4 Plt Count 150 MPV 7.4 L Neutrophils % 93.3 H Lymphocytes % 2.5 L Monocytes % 4.1 D Eosinophils % 0.0 D Basophils % 0.1 INR PTT (Actin FS) Sodium 140 Potassium 3.6 Chloride 106 Carbon Dioxide 24 Anion Gap 10 BUN 16 D Creatinine 0.9 Creat Clearance w eGFR > 60 Random Glucose 133 H Hemoglobin A1c % Lactic Acid Calcium 8.3 L Phosphorus 1.9 L D Magnesium 1.7 L D Total Bilirubin 2.5 H D AST 1454 H ALT 967 H D Alkaline Phosphatase 235 H Total Protein 6.0 L Albumin 3.0 L Total Amylase 23 L Cancelled Urine Color Urine Appearance Urine pH Ur Specific [place] Urine Protein Urine Glucose (UA) Urine Ketones Urine Blood Urine Nitrite Urine Bilirubin Urine Urobilinogen Ur Leukocyte Esterase Stool Occult Blood 08/11/16 08/11/16 08/11/16 06:00 08:25 08:25 WBC RBC Hgb Hct MCV MCHC RDW Plt Count MPV Neutrophils % Lymphocytes % Monocytes % Eosinophils % Basophils % INR 1.43 H PTT (Actin FS) 29.6 Sodium Potassium Chloride Carbon Dioxide Anion Gap BUN Creatinine Creat Clearance w eGFR Random Glucose Hemoglobin A1c % 5.6 Lactic Acid 1.357 Calcium Phosphorus Magnesium Total Bilirubin AST ALT Alkaline Phosphatase Total Protein Albumin Total Amylase Urine Color Urine Appearance Urine pH Ur Specific [place] Urine Protein Urine Glucose (UA) Urine Ketones Urine Blood Urine Nitrite Urine Bilirubin Urine Urobilinogen Ur Leukocyte Esterase Stool Occult Blood 08/11/16 08/11/16 10:15 11:30 WBC RBC Hgb Hct MCV MCHC RDW Plt Count MPV Neutrophils % Lymphocytes % Monocytes % Eosinophils % Basophils % INR PTT (Actin FS) Sodium Potassium Chloride Carbon Dioxide Anion Gap BUN Creatinine Creat Clearance w eGFR Random Glucose Hemoglobin A1c % Lactic Acid Calcium Phosphorus Magnesium Total Bilirubin AST ALT Alkaline Phosphatase Total Protein Albumin Total Amylase Urine Color Jocelyn Urine Appearance Clear Urine pH 6.0 Ur Specific [place] 1.016 Urine Protein Negative Urine Glucose (UA) Negative Urine Ketones Negative Urine Blood Negative Urine Nitrite Negative Urine Bilirubin Negative Urine Urobilinogen 2.0 e.u/dl Ur Leukocyte Esterase Negative Stool Occult Blood Negative Current Medications Generic Name Dose Route Start Last Admin Trade Name Freq PRN Reason Stop Dose Admin Acetaminophen 650 mg 08/11/16 11:10 Tylenol Suppository - IA Q6H PRN FEVER OR PAIN Sodium Chloride 1,000 mls @ 1,000 mls/hr 08/11/16 09:10 08/11/16 09:15 Normal Saline - IV 1,000 mls/hr ASDIR SULEIMAN Administration Sodium Chloride 1,000 mls @ 125 mls/hr 08/11/16 09:33 08/11/16 10:00 Normal Saline - IV 125 mls/hr ASDIR SULEIMAN Administration Meropenem 1 gm/ Dextrose 250 mls @ 250 mls/hr 08/11/16 13:15 IVPB Q8H-IV SULEIMAN Lisinopril 5 mg 08/11/16 10:00 08/11/16 13:00 Prinivil PO Not Given DAILY SU[facility]AN Morphine Sulfate 2 mg 08/11/16 01:25 Morphine Injection - IVPUSH Q4H PRN PAIN Ondansetron HCl 4 mg 08/11/16 01:25 Zofran Injection IVPB Q6H PRN NAUSEA Pantoprazole Sodium 40 mg 08/11/16 10:00 08/11/16 12:59 Protonix - PO Not Given DAILY SULEIMAN Pregabalin 150 mg 08/11/16 10:00 08/11/16 11:12 Lyrica - PO Not Given BID [facility] ASSESSMENT/PLAN 76 year-old man with a PMH of HTN, GERD, kidney stones, vertigo, and post- herpetic neuralgia admitted for acute cholecystitis. Severe sepsis secondary to acute cholecystitis due to biliary obstruction --Tm 100.9, WBC 16.1, p106; total bili, AST, ALT rising; repeat labs pending --US gallbladder: gallstones, sludge, wall thickening 4mm, CBC 12mm --given 1L bolus in ED, a second litre now with improvement in tachycardia --received one dose Zosyn, switch to meropenem --seen by GI, MRCP today, ERCP tomorrow --surgery following --ID following Hypertension --BP well-controlled --continue lisinopril Post-herpetic neuralgia --continue Lyrica GERD --continue protonix FEN Fluids: NS@75cc/hr Electrolytes: replete as indicated Nutrition: NPO DVT prophylaxis: hold chemical prophylaxis due to imminent procedure(s); SCDs Dispo: continues to require inpatient care. Full Code. Visit type - Emergency Visit Emergency Visit: Yes ED Registration Date: 08/11/16 Care time: The patient presented to the Emergency Department on the above date and was hospitalized for further evaluation of their emergent condition. - New Patient This patient is new to me today: Yes Date on this admission: 08/11/16 - Critical Care Critical Care patient: No
[2016-08-11] MEDS ORDERED: PT OWN MED DRAWER 7, Y5N ONE (14:40)
[2016-08-11] MEDS: MEROPENEM 1 GM in DEXTROSE 5%-WATER - 250 ML IVPB SCH ×2 (14:53→18:05)
[2016-08-11 18:30] LABS: BASOPHIL 0.3 % (0-2.0); EOSINOPHIL 0.8 % (0-4.5); MCH 31.7 pg (25.7-33.7); MCHC 33.6 g/dl (32.0-35.9); MEAN CELL VOLUME 94.4 fl (80-96); NEUTROPHILS 89.1 % (42.8-82.8); PLATELET COUNT 151 K/MM3 (134-434); RDW 13.5 % (11.9-15.9); WHITE BLOOD COUNT 14.3 K/mm3 (4.0-10.0)
[2016-08-11 19:28] LABS: BILIRUBIN,DIRECT 2.6 mg/dL (0.0-0.2); BILIRUBIN,TOTAL 3.2 mg/dL (0.2-1.0); CALCIUM 8.3 mg/dL (8.5-10.1); CREATININE 0.7 mg/dL (0.7-1.3); TOT PROT 5.9 g/dl (6.4-8.2)
[2016-08-11] MEDS ORDERED: SODIUM CHLORIDE 0.45% 1,000 ML IV SCH (22:15)
--- NOTE | 2016-08-11 23:21 | EKG ---
Test Reason : Blood Pressure : / mmHG Vent. Rate : 115 BPM Atrial Rate : 115 BPM P-R Int : 148 ms QRS Dur : 084 ms QT Int : 330 ms P-R-T Axes : 047 028 060 degrees QTc Int : 456 ms SINUS TACHYCARDIA OTHERWISE NORMAL ECG WHEN COMPARED WITH ECG OF 04-DEC-2015 20:53, T WAVE VARIATION Confirmed by ELINA MG MD ([id number]) on 08/11/2016 11:20:54 PM Referred By: Confirmed By:ELINA MG MD
[2016-08-12] MEDS: MEROPENEM 1 GM in DEXTROSE 5%-WATER - 250 ML IVPB SCH ×3 (02:22→19:01)
[2016-08-12 07:36] LABS: BASOPHIL 0.4 % (0-2.0); EOSINOPHIL 4.3 % (0-4.5); MCH 32.2 pg (25.7-33.7); MCHC 33.8 g/dl (32.0-35.9); MEAN CELL VOLUME 95.3 fl (80-96); NEUTROPHILS 81.1 % (42.8-82.8); PLATELET COUNT 136 K/MM3 (134-434); RDW 13.5 % (11.9-15.9)
[2016-08-12 07:41] LABS: INR 1.73 (0.82-1.09); PROTHROMBIN TIME (PATIENT) 19.3 SEC (9.98-11.88)
[2016-08-12 08:10] LABS: ALBUMIN 2.8 g/dl (3.4-5.0); ALK PHOS 229 U/L (45-117); ANION GAP 12 (8-16); BILIRUBIN,DIRECT 2.6 mg/dL (0.0-0.2); BILIRUBIN,TOTAL 3.4 mg/dL (0.2-1.0); CALCIUM 8.2 mg/dL (8.5-10.1); CO2 23 mmol/L (21-32); CREATININE 0.6 mg/dL (0.7-1.3); GLUCOSE,RANDOM 80 mg/dL (74-106); TOT PROT 5.9 g/dl (6.4-8.2)
[2016-08-12 08:35] LABS: SGOT/AST 523 U/L (15-37); SGPT/ALT 686 U/L (12-78)
[2016-08-12] MEDS ORDERED: NEOSTIGMINE METHYLSULFATE 0.5 MG/ML - 10 ML MDV ONE (10:21)
[2016-08-12] MEDS ORDERED: GLYCOPYRROLATE 0.2 MG/1 ML VIAL ONE ×4 (10:21)
[2016-08-12] MEDS ORDERED: LABETALOL HCL 5 MG/1 ML (100MG/20 ML VIAL) ONE (10:21)
[2016-08-12] MEDS ORDERED: LIDOCAINE HCL 2% JELLY 10 ML CARTRIDGE ONE (10:21)
[2016-08-12] MEDS ORDERED: PHENYLEPHRINE HCL 10 MG/1 ML SINGLE DOSE VIAL ONE (10:22)
--- NOTE | 2016-08-12 11:45 | PN ---
Progress Note (short form) - Note Progress Note: GI Procedure NOte: Please see ERCP report . Two stones, a small and a very large one were removed after sphincterotomy. If no pancreatitis ensues then should proceed with cholecystectomy. The patient was prone to sinus tachycardia up to 200 bpm which wasmamaged with Labetolol. Would consider cardiac consultation if not already done. Continue antibiotics. Will give brisk hydration to try to prevent pancreatitis.
[2016-08-12] MEDS ORDERED: LACTATED RINGERS SOLUTION 1,000 ML IV SCH (12:00)
--- NOTE | 2016-08-12 12:10 | PN ---
Progress Note (short form) - Note Progress Note: Surgery Attending Patient seen in GI suite post ERCP stone extraction and sphincterotomy Noted to have palpitations and sinus tachycardia pre-ERCP PE: AA, not in distress Abd: soft, no tenderness A: cholelithiasis and choledocholithiasis P: agree with Cardiology evaluation and clearance pre-cholecystectomy For robotic cholecystectomy on 08/14/16 pending medical/cardiac clearance.
[2016-08-12] MEDS: PANTOPRAZOLE 40 MG TABLET (FP) PO SCH (13:24)
[2016-08-12] MEDS: LISINOPRIL 5 MG TABLET (FP) PO SCH (13:24)
[2016-08-12] MEDS: PHYTONADIONE 10 MG/1 ML AMP IM SCH (13:24)
[2016-08-12] MEDS: PREGABALIN 75 MG CAPSULE PO SCH ×2 (13:24→22:44)
--- NOTE | 2016-08-12 14:57 | PN ---
Physical Exam: SUBJECTIVE: Patient seen and examined at bedside. Resting very comfortably s/p ERCP, denies pain, tolerating clears. OBJECTIVE: Vital Signs Period Temp Pulse Resp BP Sys/Rubio Pulse Ox Last 24 Hr 98 F-98.6 F 75-104 18-20 125-155/66-99 95-100 GENERAL: The patient is awake, alert, and fully oriented, in no acute distress. HEAD: Normal with no signs of trauma. EYES: PERRL, extraocular movements intact, sclera anicteric, conjunctiva clear. No ptosis. LUNGS: Breath sounds equal, clear to auscultation bilaterally, no wheezes, no crackles, no accessory muscle use. HEART: Regular rate and rhythm, S1, S2 without murmur, rub or gallop. ABDOMEN: Soft, nontender, nondistended, normoactive bowel sounds, no guarding, no rebound EXTREMITIES: 2+ pulses, warm, well-perfused, no edema. NEUROLOGICAL: Cranial nerves II through XII grossly intact. Normal speech, gait not observed. Laboratory Results - last 24 hr 08/11/16 08/11/16 08/11/16 18:00 18:00 18:00 WBC 14.3 H RBC 3.53 L Hgb 11.2 L Hct 33.3 L MCV 94.4 MCHC 33.6 RDW 13.5 Plt Count 151 MPV 8.0 Neutrophils % 89.1 H Lymphocytes % 3.8 L D Monocytes % 6.0 Eosinophils % 0.8 D Basophils % 0.3 INR Sodium 145 Potassium 3.5 Chloride 112 H Carbon Dioxide 23 Anion Gap 10 BUN 11 D Creatinine 0.7 D Creat Clearance w eGFR Random Glucose 97 D Lactic Acid 1.123 Calcium 8.3 L Total Bilirubin 3.2 H D Direct Bilirubin 2.6 H D AST 813 H D ALT 873 H Alkaline Phosphatase 234 H Total Protein 5.9 L Albumin 3.0 L 08/12/16 08/12/16 08/12/16 05:52 05:52 05:52 WBC 10.0 D RBC 3.51 L Hgb 11.3 L Hct 33.5 L MCV 95.3 MCHC 33.8 RDW 13.5 Plt Count 136 MPV 8.0 Neutrophils % 81.1 Lymphocytes % 8.0 D Monocytes % 6.2 Eosinophils % 4.3 D Basophils % 0.4 INR 1.73 H Sodium 142 Potassium 3.5 Chloride 107 Carbon Dioxide 23 Anion Gap 12 BUN 9 Creatinine 0.6 L Creat Clearance w eGFR > 60 Random Glucose 80 Lactic Acid Calcium 8.2 L Total Bilirubin 3.4 H Direct Bilirubin 2.6 H AST 523 H D ALT 686 H D Alkaline Phosphatase 229 H Total Protein 5.9 L Albumin 2.8 L Active Medications Generic Name Dose Route Start Last Admin Trade Name Freq PRN Reason Stop Dose Admin Acetaminophen 650 mg 08/11/16 11:10 Tylenol Suppository - [place] Q6H PRN FEVER OR PAIN Meropenem 1 gm/ Dextrose 250 mls @ 250 mls/hr 08/11/16 13:15 08/12/16 13:28 IVPB 250 mls/hr Q8H-IV SU[facility]AN Administration Lactated Ringer's 1,000 mls @ 200 mls/hr 08/12/16 12:00 08/12/16 13:30 Lactated Ringers Solution IV 08/12/16 16:00 200 mls/hr ASDIR [facility]AN Administration Lactated Ringer's 1,000 mls @ 150 mls/hr 08/12/16 16:00 Lactated Ringers Solution IV 08/13/16 08:00 ASDIR SULEIMAN Lactated Ringer's 1,000 mls @ 125 mls/hr 08/13/16 08:00 Lactated Ringers Solution IV ASDIR SULEIMAN Lisinopril 5 mg 08/11/16 10:00 08/12/16 13:24 Prinivil PO 5 mg DAILY SULEIMAN Administration Morphine Sulfate 2 mg 08/11/16 01:25 Morphine Injection - IVPUSH Q4H PRN PAIN Ondansetron HCl 4 mg 08/11/16 01:25 Zofran Injection IVPB Q6H PRN NAUSEA Pantoprazole Sodium 40 mg 08/11/16 10:00 08/12/16 13:24 Protonix - PO 40 mg DAILY [facility]AN Administration Phytonadione 10 mg 08/12/16 12:00 08/12/16 13:24 Aqua Mephyton Injection - IM 08/14/16 10:01 10 mg DAILY SU[facility]IMAN Administration Pregabalin 150 mg 08/11/16 10:00 08/12/16 13:24 Lyrica - PO 150 mg BID SULEIMAN Administration ASSESSMENT/PLAN 76 year-old man with a PMH of HTN, GERD, kidney stones, vertigo, and post- herpetic neuralgia admitted for acute cholecystitis. Severe sepsis secondary to acute cholecystitis due to biliary obstruction --ERCP earlier today, two stones retrieved, one small, one large --afebrile, WBC trended to wnl --total bili continued to rise on this morning's labs but AST, ALT trending down --received one dose Zosyn, switch to meropenem --seen by GI, MRCP today, ERCP tomorrow --surgery following --ID following Hypertension --BP well-controlled --continue lisinopril Post-herpetic neuralgia --continue Lyrica GERD --continue protonix FEN Fluids: NS@75cc/hr Electrolytes: replete as indicated Nutrition: NPO DVT prophylaxis: hold chemical prophylaxis due to imminent procedure(s); SCDs Dispo: continues to require inpatient care. Full Code. Visit type - Emergency Visit Emergency Visit: Yes ED Registration Date: 08/11/16 Care time: The patient presented to the Emergency Department on the above date and was hospitalized for further evaluation of their emergent condition. - New Patient This patient is new to me today: No - Critical Care Critical Care patient: No
--- NOTE | 2016-08-12 15:54 | CON.CARD ---
Consult Consult Specialty:: Cardiology Referred by:: Hospitalist Reason for Consultation:: Perioperative cardiac evaluation - History of Present Illness Chief Complaint: abdominal pain History of Present Illness: 76 year old man with a history of GERD, PUD, vertigo, admitted with abdominal pain and chills and found to have cholelithiasis with choledocholelithiasis s/p ERCP today with stone removal and planned for robotic cholecystectomy on 08/14. Pt. noted to have sinus tachycardia on ER presentation and during ERCP today reportedly had tachycardia up to close to 200bpm however rhythm strips and further details are not available. Pt. does state that he felt palpitations this morning and does have very occasional brief palpitations. Denies ever having any chest pain or sob either with rest or exertion. He works as a super in an apt building and states that he often has to walk up 6 flights of stairs and denies any chest pain or sob when doing this. He states he has never had any cardiac testing before. - History Source History Provided By: Patient, Family Member Limitations to Obtaining History: No Limitations - Past Medical History Gastrointestinal: Yes: GERD, Peptic Ulcer Disease - Alcohol/Substance Use Hx Alcohol Use: No - Smoking History Smoking history: Never smoked Have you smoked in the past 12 months: No - Social History ADL: Independent History of Recent Travel: No Home Medications - Allergies Allergies/Adverse Reactions: Allergies Allergy/AdvReac Type Severity Reaction Status Date / Time No Known Allergies Allergy Verified 12/04/15 20:28 - Home Medications Home Medications: Ambulatory Orders Omeprazole [Prilosec] 40 mg PO DAILY 12/03/15 Pregabalin [Lyrica -] 150 mg PO TID 08/11/16 Family Disease History - Family Disease History Family History: Denies Review of Systems - Review of Systems Constitutional: denies: No Symptoms, Chills, Diaphoresis, Fever, Lethargy, Loss of Appetite, Malaise, Night Sweats, Unintentional Wgt. Loss, Weakness, Other Eyes: denies: No Symptoms, Blind Spots, Blurred Vision, Double Vision, Eye Pain , Floaters, Photophobia, Recent Change in Vision, Other HENT: denies: No Symptoms, Difficult Swallowing, Ear Discharge, Ear Pain, Epistaxis, Gingival Bleeding, Hearing Loss, Mouth Swelling, Nasal Congestion, Ocular Prosthesis, Throat Pain, Toothache, Ringing in Ears, Other Neck: denies: No Symptoms, Decreased ROM, Lumps, Pain on Movement, Stiffness, Swollen Glands, Tenderness, Other Cardiovascular: reports: Palpitations. denies: No Symptoms, Chest Pain, Edema, Shortness of Breath, Other Respiratory: denies: No Symptoms, Cough, Exercise Intolerance, Hemoptysis, Orthopnea, PND, Snoring, SOB, SOB on Exertion, Wheezing, Other Gastrointestinal: reports: Abdominal Pain. denies: No Symptoms, Bloating, Constipation, Diarrhea, Dysphagia, Indigestion, Melena, Nausea, Rectal Bleeding , Vomiting, Vomiting Blood, Other Genitourinary: denies: No Symptoms, Burning, Discharge, Dysuria, Flank Pain, Frequency, Hematuria, Incontinence, Lesions, Menses, Pain, Testicular Mass, Testicular Pain, Testicular Swelling, Urgency, Vaginal Bleeding, Other Breasts: denies: No Symptoms Reported, See HPI, Breast Implants, Discharge from Nipple, Lumps, Pain, Skin Changes, Other Musculoskeletal: denies: No Symptoms, Back Pain, Crepitus, Decreased ROM, Extremity Pain, Joint Pain, Joint Swelling, Muscle Pain, Muscle Cramps, Muscle Weakness, Other Integumentary: denies: No Symptoms, Blister, Bruising, Change in Color, Eczema, Erythema, Incision, Lesions, Lump, Pallor, Pruritis, Rash, Wound, Other Neurological: denies: No Symptoms, Change in LOC, Change in Speech, Confusion, Dizziness, Headache, Incoordination, Numbness, Parasthesia, Pre-Existing Deficit , Seizure, Syncope, Tremors, Unsteady Gait, Weakness, Other Endocrine: denies: No Symptoms, Excessive Sweating, Flushing, Increased Hunger, Increased Thirst, Intolerance to Cold, Intolerance to Heat, Unexplained Weight Gain, Unexplained Weight Loss, Other Hematology/Lymphatic: denies: No Symptoms, Easily Bruised, Excessive Bleeding, Swollen Glands, Other Psychiatric: denies: No Symptoms, Altered Sleep Pattern, Anxiety, Depression, Hallucinations, Panic, Paranoia, Suicidal, Other - Risk Factors Known Risk Factors: Yes: Age Vital Signs: Vital Signs Temperature 98.5 F 08/12/16 14:19 Pulse Rate 76 08/12/16 14:19 Respiratory Rate 20 08/12/16 14:19 Blood Pressure 133/83 08/12/16 14:19 O2 Sat by Pulse Oximetry (%) 97 08/12/16 14:19 Constitutional: Yes: Well Nourished, No Distress, Calm Eyes: Yes: WNL, Conjunctiva Clear, EOM Intact, PERRL HENT: Yes: WNL, Atraumatic, Normocephalic Neck: Yes: WNL, Supple, Trachea Midline Respiratory: Yes: WNL, Regular, CTA Bilaterally. No: Rales, Rhonchi, Wheezes Gastrointestinal: Yes: Normal Bowel Sounds, Tenderness. No: Distention Renal/: Yes: WNL Cardiovascular: Yes: WNL, Regular Rate and Rhythm. No: Bradycardia, Tachycardia , Pulse Irregular, Gallop, Rub, Varicosities JVD: No Carotid Bruit: No PMI: Non-Displaced Heart Sounds: Yes: S1, S2. No: Split S2, S3, S4, Clicks, Gallop, Rub, Bruit Murmur: No: Systolic Murmur, Diastolic Murmur Musculoskeletal: Yes: WNL Extremities: Yes: WNL Edema: No Peripheral Pulses WNL: Yes Peripheral Pulses: 2+ Left Doralis Pedis, 2+ Right Dorsalis Pedis Integumentary: Yes: WNL Neurological: Yes: WNL, Alert, Oriented, Cran Nerves II-XII Intact ...Motor Strength: WNL Psychiatric: Yes: WNL, Alert, Oriented - Other Data Labs, Other Data: CBC, BMP 08/12/16 05:52 08/12/16 05:52 INR, PTT INR 1.73 (0.82-1.09) H 08/12/16 05:52 EKG-08/11-sinus tach 113bpm, no sig ST abnl Imaging - Results Chest X-ray: Report Reviewed, Image Reviewed EKG: Report Reviewed, Image Reviewed Other: Report Reviewed, Image Reviewed Problem List - Problems (1) Acute cholecystitis due to biliary calculus Code(s): K80.00 - CALCULUS OF GALLBLADDER W ACUTE CHOLECYST W/O OBSTRUCTION (2) Preop cardiovascular exam Code(s): Z01.810 - ENCOUNTER FOR PREPROCEDURAL CARDIOVASCULAR EXAMINATION (3) Tachycardia Code(s): R00.0 - TACHYCARDIA, UNSPECIFIED (4) Abnormal EKG Code(s): R94.31 - ABNORMAL ELECTROCARDIOGRAM [ECG] [EKG] (5) Palpitations Code(s): R00.2 - PALPITATIONS Assessment/Plan 76 year old man with a history of GERD, PUD, vertigo, admitted with abdominal pain and chills and found to have cholelithiasis with choledocholelithiasis s/p ERCP today with stone removal and planned for robotic cholecystectomy on 08/14. Pt. noted to have sinus tachycardia on ER presentation and during ERCP today reportedly had tachycardia up to close to 200bpm however rhythm strips and further details are not available. Pt. does state that he felt palpitations this morning and does have very occasional brief palpitations. Tachycardia-sinus tach on ekg, unknown rhythm during ERCP but reported HR up to 200bpm -HR and rhythm currently normal on exam -pt reports palpitations this am and intermittently in the past -would transfer to telemetry to further evaluate for arrhythmia Perioperative cardiac risk stratification -pt reports unlimited exercise tolerance and no history of chest pain or sob but given his tachycardia and palpitations will plan for an echo and nuclear stress test tomorrow to further risk stratify prior to his surgery on wednesday -will hold off on preop bblocker as his HR is currently 70s and there is insufficient time to titrate prior to surgery
--- NOTE | 2016-08-12 16:01 | PN ---
Progress Note, Physician History of Present Illness: patient stable post ercp no issues - Current Medication List Current Medications: Active Medications Acetaminophen (Tylenol Suppository -) 650 mg [place] Q6H PRN PRN Reason: FEVER OR PAIN Meropenem 1 gm/ Dextrose 250 mls @ 250 mls/hr IVPB Q8H-IV [facility] Last Admin: 08/12/16 13:28 Dose: 250 mls/hr Lactated Ringer's (Lactated Ringers Solution) 1,000 mls @ 150 mls/hr IV ASDIR [facility] Stop: 08/13/16 08:00 Lactated Ringer's (Lactated Ringers Solution) 1,000 mls @ 125 mls/hr IV ASDIR [facility] Lisinopril (Prinivil) 5 mg PO DAILY [facility] Last Admin: 08/12/16 13:24 Dose: 5 mg Ondansetron HCl (Zofran Injection) 4 mg IVPB Q6H PRN PRN Reason: NAUSEA Pantoprazole Sodium (Protonix -) 40 mg PO DAILY [facility] Last Admin: 08/12/16 13:24 Dose: 40 mg Phytonadione (Aqua Mephyton Injection -) 10 mg IM DAILY [facility] Stop: 08/14/16 10:01 Last Admin: 08/12/16 13:24 Dose: 10 mg Pregabalin (Lyrica -) 150 mg PO BID [facility] Last Admin: 08/12/16 13:24 Dose: 150 mg - Objective Vital Signs: Vital Signs Temperature 98.5 F 08/12/16 14:19 Pulse Rate 76 08/12/16 14:19 Respiratory Rate 20 08/12/16 14:19 Blood Pressure 133/83 08/12/16 14:19 O2 Sat by Pulse Oximetry (%) 97 08/12/16 14:19 Constitutional: Yes: No Distress, Calm HENT: Yes: Atraumatic Neck: Yes: Supple Cardiovascular: Yes: Regular Rate and Rhythm Respiratory: Yes: Regular, CTA Bilaterally Gastrointestinal: Yes: Normal Bowel Sounds, Soft Musculoskeletal: Yes: WNL Extremities: Yes: WNL Wound/Incision: Yes: Well Approximated Neurological: Yes: Alert, Oriented Psychiatric: Yes: Alert Labs: CBC, BMP 08/12/16 05:52 08/12/16 05:52 INR, PTT INR 1.73 (0.82-1.09) H 08/12/16 05:52 Assessment/Plan after looking at the patient history and imaging and studies from before this process has been ongoing for quite some time now Sepsis secondary to cholecystitis HTN post-herpetic neuralgia plan continue abx choly on wednesday
[2016-08-12] MEDS: LACTATED RINGERS SOLUTION 1,000 ML IV SCH ×2 (17:49→21:01)
[2016-08-13] MEDS: MEROPENEM 1 GM in DEXTROSE 5%-WATER - 250 ML IVPB SCH ×3 (03:00→17:00)
[2016-08-13 07:35] LABS: BASOPHIL 0.5 % (0-2.0); EOSINOPHIL 3.8 % (0-4.5); MCH 32.2 pg (25.7-33.7); MCHC 33.9 g/dl (32.0-35.9); MEAN CELL VOLUME 95.2 fl (80-96); MEAN PLT VOLUME 8.1 fl (7.5-11.1); NEUTROPHILS 70.1 % (42.8-82.8); PLATELET COUNT 140 K/MM3 (134-434); WHITE BLOOD COUNT 6.4 K/mm3 (4.0-10.0)
[2016-08-13 07:56] LABS: INR 1.3 (0.82-1.09); PROTHROMBIN TIME (PATIENT) 14.4 SEC (9.98-11.88)
[2016-08-13 08:19] LABS: ALBUMIN 2.7 g/dl (3.4-5.0); AMYLASE 61 U/L (25-115); ANION GAP 8 (8-16); BILIRUBIN,DIRECT 0.8 mg/dL (0.0-0.2); C-REACTIVE PROTEIN 4.4 MG/DL (0.00-0.3); CALCIUM 8.3 mg/dL (8.5-10.1); CO2 30 mmol/L (21-32); CREATININE 0.6 mg/dL (0.7-1.3); GLUCOSE,RANDOM 114 mg/dL (74-106); SGOT/AST 272 U/L (15-37)
[2016-08-13 08:22] LABS: ALK PHOS 236 U/L (45-117); BILIRUBIN,TOTAL 1.1 mg/dL (0.2-1.0); TOT PROT 5.6 g/dl (6.4-8.2)
[2016-08-13 08:32] LABS: SGPT/ALT 482 U/L (12-78)
[2016-08-13] MEDS: PREGABALIN 75 MG CAPSULE PO SCH ×2 (09:29→21:12)
[2016-08-13] MEDS: LISINOPRIL 5 MG TABLET (FP) PO SCH (09:29)
[2016-08-13] MEDS: PANTOPRAZOLE 40 MG TABLET (FP) PO SCH (09:29)
--- NOTE | 2016-08-13 09:29 | PN ---
Progress Note, Physician Chief Complaint: TELE: Multiple runs PSVT 170s with intermittent NSR Episode of NSVT Patient has palpitations but denies chest pain History of Present Illness: K+ low, being repleted. - Current Medication List Current Medications: Active Medications Acetaminophen (Tylenol Suppository -) 650 mg [place] Q6H PRN PRN Reason: FEVER OR PAIN Meropenem 1 gm/ Dextrose 250 mls @ 250 mls/hr IVPB Q8H-IV [facility] Last Admin: 08/13/16 03:00 Dose: 250 mls/hr Lactated Ringer's (Lactated Ringers Solution) 1,000 mls @ 125 mls/hr IV ASDIR [facility] Lisinopril (Prinivil) 5 mg PO DAILY [facility] Last Admin: 08/12/16 13:24 Dose: 5 mg Ondansetron HCl (Zofran Injection) 4 mg IVPB Q6H PRN PRN Reason: NAUSEA Pantoprazole Sodium (Protonix -) 40 mg PO DAILY [facility] Last Admin: 08/12/16 13:24 Dose: 40 mg Phytonadione (Aqua Mephyton Injection -) 10 mg IM DAILY [facility] Stop: 08/14/16 10:01 Last Admin: 08/12/16 13:24 Dose: 10 mg Potassium Chloride (K-Dur -) 40 meq PO Q6H [facility] Stop: 08/13/16 15:01 Pregabalin (Lyrica -) 150 mg PO BID [facility] Last Admin: 08/12/16 22:44 Dose: 150 mg - Objective Vital Signs: Vital Signs Temperature 97.8 F 08/13/16 02:00 Pulse Rate 90 08/13/16 06:00 Respiratory Rate 20 08/13/16 06:00 Blood Pressure 133/89 08/13/16 06:00 O2 Sat by Pulse Oximetry (%) 97 08/12/16 21:00 Constitutional: Yes: Calm Cardiovascular: Yes: Regular Rate and Rhythm Respiratory: Yes: CTA Bilaterally Gastrointestinal: Yes: Soft Edema: No Neurological: Yes: Alert, Oriented Labs: CBC, BMP 08/13/16 05:35 08/13/16 05:35 INR, PTT INR 1.30 (0.82-1.09) H 08/13/16 05:35 - ....Imaging EKG: Image Reviewed Assessment/Plan IMP: PSVT, recurrent VT, non-sustained REC: Continue telemetry Replete K+ Check Mg2+ and replete if < 2 Cycle cardiac enzymes Echo To begin Lopressor 25mg BID
[2016-08-13] MEDS: METOPROLOL TARTRATE 25 MG TABLET (FP) PO SCH ×2 (10:31→21:12)
[2016-08-13] MEDS: POTASSIUM CHLORIDE TABS 20 MEQ TABLET.ER (FP) PO SCH ×2 (10:31→16:56)
[2016-08-13 10:40] LABS: TROPONIN I < 0.02 ng/ml (0.00-0.05)
[2016-08-13 14:15] LABS: HEP B SURFACE AB Non Reactive (.)
--- NOTE | 2016-08-13 15:24 | PN ---
Physical Exam: GI note SUBJECTIVE: Patient seen and examined ERCP done yesterday with sphincterotomy, 2 stones removed from the CBD No fever, chills tolerating liquid diet well, no n/v No abdominal pain no diarrhea, no melena, no hematochezia or constipation Episode of tachyarrhythmia, cardiology is on the case. OBJECTIVE: Vital Signs Period Temp Pulse Resp BP Sys/Rubio Pulse Ox Last 24 Hr 96.8 F-98.0 F 74-122 18-22 117-150/70-100 96-97 GENERAL: The patient is awake, alert, and fully oriented, in no acute distress. EYES: P sclera anicteric, LUNGS: Breath sounds equal, clear to auscultation bilaterally, no wheezes, no crackles, no accessory muscle use. HEART: Regular rate and rhythm, S1, S2 without murmur, rub or gallop. ABDOMEN: Soft, nontender, nondistended, normoactive bowel sounds, no guarding, no rebound, no hepatosplenomegaly, no masses. EXTREMITIES: 2+ pulses, warm, well-perfused, no edema. NEUROLOGICAL: Normal speech, gait not observed. PSYCH: Normal mood, normal affect. SKIN: Warm, dry, normal turgor, no rashes or lesions noted Laboratory Results - last 24 hr 08/12/16 08/13/16 08/13/16 05:52 05:35 05:35 WBC 6.4 D RBC 3.44 L Hgb 11.1 L Hct 32.7 L MCV 95.2 MCHC 33.9 RDW 14.0 Plt Count 140 MPV 8.1 Neutrophils % 70.1 Lymphocytes % 14.3 D Monocytes % 11.3 H D Eosinophils % 3.8 Basophils % 0.5 INR Sodium 144 Potassium 3.2 L Chloride 106 Carbon Dioxide 30 D Anion Gap 8 BUN 6 L D Creatinine 0.6 L Random Glucose 114 H D Calcium 8.3 L Magnesium 2.0 Total Bilirubin 1.1 H D Direct Bilirubin 0.8 H D AST 272 H D ALT 482 H D Alkaline Phosphatase 236 H Creatine Kinase 90 Troponin I < 0.02 C-Reactive Protein 4.4 H Total Protein 5.6 L Albumin 2.7 L Total Amylase 61 D Lipase 205 Hepatitis A IgM Ab Negative Hepatitis A Ab Total Positive H Hep Bs Antigen Negative Hep Bs Antibody Non reactive Hep B Core Total Ab Negative Hepatitis C Antibody <0.1 02/02/17 02/02/17 02/02/17 05:35 06:00 06:00 WBC RBC Hgb Hct MCV MCHC RDW Plt Count MPV Neutrophils % Lymphocytes % Monocytes % Eosinophils % Basophils % INR 1.30 H Sodium Potassium Chloride Carbon Dioxide Anion Gap BUN Creatinine Random Glucose Calcium Magnesium Cancelled Total Bilirubin Direct Bilirubin AST ALT Alkaline Phosphatase Creatine Kinase Cancelled Troponin I Cancelled C-Reactive Protein Total Protein Albumin Total Amylase Lipase Hepatitis A IgM Ab Hepatitis A Ab Total Hep Bs Antigen Hep Bs Antibody Hep B Core Total Ab Hepatitis C Antibody 08/13/16 08/13/16 09:56 12:50 WBC RBC Hgb Hct MCV MCHC RDW Plt Count MPV Neutrophils % Lymphocytes % Monocytes % Eosinophils % Basophils % INR Sodium Potassium Chloride Carbon Dioxide Anion Gap BUN Creatinine Random Glucose Calcium Magnesium Total Bilirubin Direct Bilirubin AST ALT Alkaline Phosphatase Creatine Kinase Troponin I Cancelled < 0.02 C-Reactive Protein Total Protein Albumin Total Amylase Lipase Hepatitis A IgM Ab Hepatitis A Ab Total Hep Bs Antigen Hep Bs Antibody Hep B Core Total Ab Hepatitis C Antibody Active Medications Generic Name Dose Route Start Last Admin Trade Name Freq PRN Reason Stop Dose Admin Acetaminophen 650 mg 08/11/16 11:10 Tylenol Suppository - [place] Q6H PRN FEVER OR PAIN Meropenem 1 gm/ Dextrose 250 mls @ 250 mls/hr 08/11/16 13:15 08/13/16 09:28 IVPB 250 mls/hr Q8H-IV [facility] Administration Lactated Ringer's 1,000 mls @ 125 mls/hr 08/13/16 08:00 Lactated Ringers Solution IV ASDIR [facility] Lisinopril 5 mg 08/11/16 10:00 08/13/16 09:29 Prinivil PO 5 mg DAILY [facility] Administration Metoprolol Tartrate 25 mg 08/13/16 10:00 08/13/16 10:31 Lopressor - PO 25 mg BID [facility] Administration Ondansetron HCl 4 mg 08/11/16 01:25 Zofran Injection IVPB Q6H PRN NAUSEA Pantoprazole Sodium 40 mg 08/11/16 10:00 08/13/16 09:29 Protonix - PO 40 mg DAILY [facility] Administration Phytonadione 10 mg 08/12/16 12:00 08/12/16 13:24 Aqua Mephyton Injection - IM 08/14/16 10:01 10 mg DAILY [facility] Administration Potassium Chloride 40 meq 08/13/16 09:45 08/13/16 10:31 K-Dur - PO 08/13/16 15:46 40 meq Q6H [facility] Administration Pregabalin 150 mg 08/11/16 10:00 08/13/16 09:29 Lyrica - PO 150 mg BID SULEIMAN Administration ASSESSMENT/PLAN: Choledocholithiasis ( resolved ) Resolved by ERCP with sphincterotomy and gallstone removal LFTs and bilirubin are normalizing Continue to monitor CMP No pancreatitis, continue IV fluid Acute Cholecystitis with Cholelithiasis Awaiting medical and cardiac clearance for robotic cholecystectomy 08/14/[address] Tobar If cholecystectomy is not done pt may end up with Choledolithiasis again and acute cholangitis and Acute pancreatitis Risk and benefit need to be assessed, medical and cardiac clearance need to be obtained. Antibiotic per ID recommendation Visit type - Emergency Visit Emergency Visit: Yes ED Registration Date: 08/11/16 Care time: The patient presented to the Emergency Department on the above date and was hospitalized for further evaluation of their emergent condition. - New Patient This patient is new to me today: No - Critical Care Critical Care patient: No - Discharge Referral Referred to [facility] No
[2016-08-13] MEDS: LACTATED RINGERS SOLUTION 1,000 ML IV SCH (16:57)
[2016-08-13] MEDS: PHYTONADIONE 10 MG/1 ML AMP IM SCH (16:57)
[2016-08-13] MEDS ORDERED: PT OWN MED DRAWER 7, Y5N ONE (16:59)
--- NOTE | 2016-08-13 17:25 | EKG ---
Test Reason : Blood Pressure : / mmHG Vent. Rate : 097 BPM Atrial Rate : 074 BPM P-R Int : 000 ms QRS Dur : 080 ms QT Int : 338 ms P-R-T Axes : 056 017 049 degrees QTc Int : 429 ms SINUS RHYTHM WITH FREQUENT PACs NONSPECIFIC ST ABNORMALITY ABNORMAL ECG Confirmed by CAMELIA IBARRA MD ([id number]) on 08/13/2016 5:25:32 PM Referred By: ANASTASIA LAMAR Confirmed By:CAMELIA IBARRA MD
--- NOTE | 2016-08-13 18:01 | PN ---
Physical Exam: SUBJECTIVE: Patient seen and examined. OBJECTIVE: Vital Signs Period Temp Pulse Resp BP Sys/Rubio Pulse Ox Last 24 Hr 96.8 F-98.0 F 74-122 18-22 117-150/70-100 96-97 GENERAL: The patient is awake, alert, and fully oriented, in no acute distress. HEAD: Normal with no signs of trauma. EYES: PERRL, extraocular movements intact, sclera anicteric, conjunctiva clear. No ptosis. LUNGS: Breath sounds equal, clear to auscultation bilaterally, no wheezes, no crackles, no accessory muscle use. HEART: Regular rate and rhythm, S1, S2 without murmur, rub or gallop. ABDOMEN: Soft, nontender, nondistended, normoactive bowel sounds, no guarding, no rebound EXTREMITIES: 2+ pulses, warm, well-perfused, no edema. NEUROLOGICAL: Cranial nerves II through XII grossly intact. Normal speech, gait not observed. Laboratory Results - last 24 hr 08/12/16 08/13/16 08/13/16 05:52 05:35 05:35 WBC 6.4 D RBC 3.44 L Hgb 11.1 L Hct 32.7 L MCV 95.2 MCHC 33.9 RDW 14.0 Plt Count 140 MPV 8.1 Neutrophils % 70.1 Lymphocytes % 14.3 D Monocytes % 11.3 H D Eosinophils % 3.8 Basophils % 0.5 INR Sodium 144 Potassium 3.2 L Chloride 106 Carbon Dioxide 30 D Anion Gap 8 BUN 6 L D Creatinine 0.6 L Random Glucose 114 H D Calcium 8.3 L Magnesium 2.0 Total Bilirubin 1.1 H D Direct Bilirubin 0.8 H D AST 272 H D ALT 482 H D Alkaline Phosphatase 236 H Creatine Kinase 90 Troponin I < 0.02 C-Reactive Protein 4.4 H Total Protein 5.6 L Albumin 2.7 L Total Amylase 61 D Lipase 205 Hepatitis A IgM Ab Negative Hepatitis A Ab Total Positive H Hep Bs Antigen Negative Hep Bs Antibody Non reactive Hep B Core Total Ab Negative Hepatitis C Antibody <0.1 Blood Type Antibody Screen 08/13/16 08/13/16 08/13/16 05:35 06:00 06:00 WBC RBC Hgb Hct MCV MCHC RDW Plt Count MPV Neutrophils % Lymphocytes % Monocytes % Eosinophils % Basophils % INR 1.30 H Sodium Potassium Chloride Carbon Dioxide Anion Gap BUN Creatinine Random Glucose Calcium Magnesium Cancelled Total Bilirubin Direct Bilirubin AST ALT Alkaline Phosphatase Creatine Kinase Cancelled Troponin I Cancelled C-Reactive Protein Total Protein Albumin Total Amylase Lipase Hepatitis A IgM Ab Hepatitis A Ab Total Hep Bs Antigen Hep Bs Antibody Hep B Core Total Ab Hepatitis C Antibody Blood Type Antibody Screen 08/13/16 08/13/16 08/13/16 09:56 12:50 16:34 WBC RBC Hgb Hct MCV MCHC RDW Plt Count MPV Neutrophils % Lymphocytes % Monocytes % Eosinophils % Basophils % INR Sodium Potassium Chloride Carbon Dioxide Anion Gap BUN Creatinine Random Glucose Calcium Magnesium Total Bilirubin Direct Bilirubin AST ALT Alkaline Phosphatase Creatine Kinase Troponin I Cancelled < 0.02 C-Reactive Protein Total Protein Albumin Total Amylase Lipase Hepatitis A IgM Ab Hepatitis A Ab Total Hep Bs Antigen Hep Bs Antibody Hep B Core Total Ab Hepatitis C Antibody Blood Type O POSITIVE Antibody Screen Negative Active Medications Generic Name Dose Route Start Last Admin Trade Name Freq PRN Reason Stop Dose Admin Acetaminophen 650 mg 08/11/16 11:10 Tylenol Suppository - IN Q6H PRN FEVER OR PAIN Meropenem 1 gm/ Dextrose 250 mls @ 250 mls/hr 08/11/16 13:15 08/13/16 17:00 IVPB 250 mls/hr Q8H-IV SULEIMAN Administration Lactated Ringer's 1,000 mls @ 125 mls/hr 08/13/16 08:00 08/13/16 16:57 Lactated Ringers Solution IV 125 mls/hr ASDIR SULEIMAN Administration Lisinopril 5 mg 08/11/16 10:00 08/13/16 09:29 Prinivil PO 5 mg DAILY SULEIMAN Administration Metoprolol Tartrate 25 mg 08/13/16 10:00 08/13/16 10:31 Lopressor - PO 25 mg BID SULEIMAN Administration Ondansetron HCl 4 mg 08/11/16 01:25 Zofran Injection IVPB Q6H PRN NAUSEA Pantoprazole Sodium 40 mg 08/11/16 10:00 08/13/16 09:29 Protonix - PO 40 mg DAILY SULEIMAN Administration Phytonadione 10 mg 08/12/16 12:00 08/13/16 16:57 Aqua Mephyton Injection - IM 08/14/16 10:01 10 mg DAILY SULEIMAN Administration Pregabalin 150 mg 08/11/16 10:00 08/13/16 09:29 Lyrica - PO 150 mg BID SULEIMAN Administration ASSESSMENT/PLAN 76 year-old man with a PMH of HTN, GERD, kidney stones, vertigo, and post- herpetic neuralgia admitted for acute cholecystitis. Severe sepsis secondary to acute cholecystitis due to biliary obstruction --2/ ERCP with sphincterotomy, two stones removed from CBD --liver enzymes normalizing --afebrile for 48 hours, WBC wnl --scheduled for cholecystectomy tomorrow pending cardiac clearance --continue meropenem (day #3) Tachycardia --rate went to 200 during ERCP; placed on telemetry and PSVT observed overnight --seen and evaluated by cardiology, started on lopressor 25mg BID --Echo today: LV normal; RV normal; mild to moderate MR; mild TR; mild pHTN; mild AI Hypertension --BP well-controlled --continue lisinopril, starting lopressor today Post-herpetic neuralgia --continue Lyrica GERD --continue protonix FEN Fluids: PO intake adequate Electrolytes: replete as indicated Nutrition: clears; NPO after midnight DVT prophylaxis: hold chemical prophylaxis due to scheduled surgery; SCDs Dispo: continues to require inpatient care. Full Code. Visit type - Emergency Visit Emergency Visit: Yes ED Registration Date: 08/11/16 Care time: The patient presented to the Emergency Department on the above date and was hospitalized for further evaluation of their emergent condition. - New Patient This patient is new to me today: No - Critical Care Critical Care patient: No
--- NOTE | 2016-08-13 19:12 | PN ---
Progress Note, Physician History of Present Illness: events noted patient had a run of svt was transferred to the the telemetry patient stable - Current Medication List Current Medications: Active Medications Acetaminophen (Tylenol Suppository -) 650 mg MD Q6H PRN PRN Reason: FEVER OR PAIN Meropenem 1 gm/ Dextrose 250 mls @ 250 mls/hr IVPB Q8H-IV [facility] Last Admin: 08/13/16 17:00 Dose: 250 mls/hr Lactated Ringer's (Lactated Ringers Solution) 1,000 mls @ 125 mls/hr IV ASDIR [facility] Last Admin: 08/13/16 16:57 Dose: 125 mls/hr Lisinopril (Prinivil) 5 mg PO DAILY [facility] Last Admin: 08/13/16 09:29 Dose: 5 mg Metoprolol Tartrate (Lopressor -) 25 mg PO BID [facility] Last Admin: 08/13/16 10:31 Dose: 25 mg Ondansetron HCl (Zofran Injection) 4 mg IVPB Q6H PRN PRN Reason: NAUSEA Pantoprazole Sodium (Protonix -) 40 mg PO DAILY [facility] Last Admin: 08/13/16 09:29 Dose: 40 mg Phytonadione (Aqua Mephyton Injection -) 10 mg IM DAILY [facility] Stop: 08/14/16 10:01 Last Admin: 08/13/16 16:57 Dose: 10 mg Pregabalin (Lyrica -) 150 mg PO BID [facility] Last Admin: 08/13/16 09:29 Dose: 150 mg - Objective Vital Signs: Vital Signs Temperature 97.6 F 08/13/16 16:44 Pulse Rate 78 08/13/16 16:44 Respiratory Rate 20 08/13/16 16:44 Blood Pressure 150/92 08/13/16 16:44 O2 Sat by Pulse Oximetry (%) 96 08/13/16 09:00 Constitutional: Yes: No Distress, Calm Cardiovascular: Yes: Regular Rate and Rhythm, Tachycardia Respiratory: Yes: Regular, CTA Bilaterally Gastrointestinal: Yes: Normal Bowel Sounds, Soft Neurological: Yes: Alert, Oriented Psychiatric: Yes: Alert, Oriented Labs: CBC, BMP 08/13/16 05:35 08/13/16 05:35 INR, PTT INR 1.30 (0.82-1.09) H 08/13/16 05:35 Assessment/Plan after looking at the patient history and imaging and studies from before this process has been ongoing for quite some time now Sepsis secondary to cholecystitis HTN post-herpetic neuralgia svt plan continue abx choly on wednesday continue close monitoring rest as per the primary team
[2016-08-14] MEDS ORDERED: PT OWN MED DRAWER 7, Y5N ONE (01:22)
[2016-08-14] MEDS: MEROPENEM 1 GM in DEXTROSE 5%-WATER - 250 ML IVPB SCH ×2 (01:30→10:11)
[2016-08-14] MEDS: LACTATED RINGERS SOLUTION 1,000 ML IV SCH ×3 (01:30→21:32)
[2016-08-14 07:52] LABS: BASOPHIL 0.7 % (0-2.0); EOSINOPHIL 4.9 % (0-4.5); MCH 31.9 pg (25.7-33.7); MCHC 33.4 g/dl (32.0-35.9); MEAN CELL VOLUME 95.6 fl (80-96); MEAN PLT VOLUME 8.2 fl (7.5-11.1); NEUTROPHILS 60.2 % (42.8-82.8); PLATELET COUNT 179 K/MM3 (134-434); RDW 13.7 % (11.9-15.9); WHITE BLOOD COUNT 6.3 K/mm3 (4.0-10.0)
[2016-08-14 08:36] LABS: ALBUMIN 3.2 g/dl (3.4-5.0); ALK PHOS 302 U/L (45-117); ANION GAP 8 (8-16); CALCIUM 8.6 mg/dL (8.5-10.1); CO2 31 mmol/L (21-32); CREATININE 0.6 mg/dL (0.7-1.3); GLUCOSE,RANDOM 97 mg/dL (74-106); MAGNESIUM 2.1 mg/dL (1.8-2.4); SGOT/AST 191 U/L (15-37); TOT PROT 6.7 g/dl (6.4-8.2)
[2016-08-14 08:40] LABS: SGPT/ALT 464 U/L (12-78)
--- NOTE | 2016-08-14 09:05 | PN ---
Progress Note, Physician Chief Complaint: denies abdominal pain Family at bedside TELE: NSR, Some PACs, one V couplet No futher PSVT runs and no further NSVT - Current Medication List Current Medications: Active Medications Acetaminophen (Tylenol Suppository -) [address] Q6H PRN PRN Reason: FEVER OR PAIN Meropenem 1 gm/ Dextrose 250 mls @ 250 mls/hr IVPB Q8H-IV [facility] Last Admin: 08/14/16 01:30 Dose: 250 mls/hr Lactated Ringer's (Lactated Ringers Solution) 1,000 mls @ 125 mls/hr IV ASDIR [facility] Last Admin: 08/14/16 01:30 Dose: 125 mls/hr Lisinopril (Prinivil) 5 mg PO DAILY [facility] Last Admin: 08/13/16 09:29 Dose: 5 mg Metoprolol Tartrate (Lopressor -) 25 mg PO BID [facility] Last Admin: 08/13/16 21:12 Dose: 25 mg Ondansetron HCl (Zofran Injection) 4 mg IVPB Q6H PRN PRN Reason: NAUSEA Pantoprazole Sodium (Protonix -) 40 mg PO DAILY [facility] Last Admin: 08/13/16 09:29 Dose: 40 mg Phytonadione (Aqua Mephyton Injection -) 10 mg IM DAILY [facility] Stop: 08/14/16 10:01 Last Admin: 08/13/16 16:57 Dose: 10 mg Pregabalin (Lyrica -) 150 mg PO BID [facility] Last Admin: 08/13/16 21:12 Dose: 150 mg - Objective Vital Signs: Vital Signs Temperature 97.9 F 08/14/16 05:59 Pulse Rate 72 08/14/16 05:59 Respiratory Rate 20 08/14/16 05:59 Blood Pressure 147/90 08/14/16 05:59 O2 Sat by Pulse Oximetry (%) 97 08/13/16 21:00 Constitutional: Yes: No Distress Eyes: Yes: Conjunctiva Clear Cardiovascular: Yes: Regular Rate and Rhythm Respiratory: Yes: CTA Bilaterally Gastrointestinal: Yes: Soft (no rebound or guarding.) Edema: No Neurological: Yes: Alert, Oriented Psychiatric: Yes: WNL Labs: CBC, BMP 08/14/16 05:36 08/14/16 05:36 INR, PTT INR 1.30 (0.82-1.09) H 08/13/16 05:35 Laboratory Tests 08/13/16 08/13/16 08/14/16 05:35 05:35 05:36 WBC 6.4 D 6.3 Hgb 11.1 L Hct 37.4 Plt Count 140 179 D Sodium 144 Potassium 3.2 L BUN 6 L D Creatinine 0.6 L Direct Bilirubin 0.8 H D AST 272 H D ALT 482 H D Alkaline Phosphatase 236 H C-Reactive Protein 4.4 H 08/14/16 05:36 WBC Hgb Hct Plt Count Sodium 143 Potassium 4.0 D BUN 5 L Creatinine 0.6 L Direct Bilirubin AST 191 H D ALT 464 H Alkaline Phosphatase 302 H D C-Reactive Protein Assessment/Plan IMP: Acute cholecystitis PSVT NSVT Hypokalemia REC: Tolerated metoprolol tartrate well with near resolution of PSVT and reduction in V-ectopy. Some of the rhythm disturbance may have been exacerbated by hypokalemia, now corrected. Switch to Toprol XL today and continue tele. Maintain K= >4 and Mg2+ >2. Cardiac enzymes are negative. LV function is normal. If rhythm remains stable over next 24 hours, then can proceed to cholecystectomy , if deemed urgent, over weekend with beta jt and post op monitoring on tele. If cholecystectomy can wait until next week, then will plan for pharm MIBI Wednesday for further CV risk stratification. Currently afebrile with normalized WBC.
[2016-08-14] MEDS: LISINOPRIL 5 MG TABLET (FP) PO SCH (10:10)
[2016-08-14] MEDS: PHYTONADIONE 10 MG/1 ML AMP IM SCH (10:10)
[2016-08-14] MEDS: PANTOPRAZOLE 40 MG TABLET (FP) PO SCH (10:11)
[2016-08-14] MEDS: PREGABALIN 75 MG CAPSULE PO SCH ×2 (10:11→21:32)
[2016-08-14] MEDS: METOPROLOL SUCCINATE 50 MG TAB.SR.24H (FP) PO SCH (10:12)
--- NOTE | 2016-08-14 14:50 | PN ---
Progress Note (short form) - Note Progress Note: Surgery Attending Patient seen and examined. Denies abdominal pain Procedure cancelled for today, re: needs further cardiac w/u A: cholelithiasis with choledocholithiasis, s/p ERCP P: will reschedule procedure when medically cleared resume diet
--- NOTE | 2016-08-14 15:24 | PN ---
Progress Note, Physician Chief Complaint: ID Full note dictated and discussed with patient primary medical doctor Pateint seen and examined. Admitted with cholangitis and fever 100.[address] Sanford stones in the CBD sphincterotomy performed He is getting better. Currently no fever no pain Pus noted in the bile duct. - Current Medication List Current Medications: Active Medications Acetaminophen (Tylenol Suppository -) [address] Q6H PRN PRN Reason: FEVER OR PAIN Meropenem 1 gm/ Dextrose 250 mls @ 250 mls/hr IVPB Q8H-IV [facility] Last Admin: 08/14/16 10:11 Dose: 250 mls/hr Lactated Ringer's (Lactated Ringers Solution) 1,000 mls @ 125 mls/hr IV ASDIR [facility] Last Admin: 08/14/16 10:10 Dose: 125 mls/hr Lisinopril (Prinivil) 5 mg PO DAILY [facility] Last Admin: 08/14/16 10:10 Dose: 5 mg Metoprolol Succinate (Toprol Xl -) 50 mg PO DAILY [facility] Last Admin: 08/14/16 10:12 Dose: 50 mg Ondansetron HCl (Zofran Injection) 4 mg IVPB Q6H PRN PRN Reason: NAUSEA Pantoprazole Sodium (Protonix -) 40 mg PO DAILY [facility] Last Admin: 08/14/16 10:11 Dose: 40 mg Pregabalin (Lyrica -) 150 mg PO BID [facility] Last Admin: 08/14/16 10:11 Dose: 150 mg - Objective Vital Signs: Vital Signs Temperature 97.2 F L 08/14/16 14:50 Pulse Rate 70 08/14/16 14:50 Respiratory Rate 20 08/14/16 14:50 Blood Pressure 143/98 08/14/16 14:50 O2 Sat by Pulse Oximetry (%) 98 08/14/16 09:00 Constitutional: Yes: No Distress Eyes: No: Sclera Icterus Neck: Yes: WNL, Supple. No: Lymphadenopathy Cardiovascular: Yes: Regular Rate and Rhythm, S1, S2 Respiratory: Yes: WNL, Regular, CTA Bilaterally. No: Rales, Rhonchi Gastrointestinal: Yes: WNL, Normal Bowel Sounds, Soft. No: Tenderness, Epigastrium, Tenderness, Rebound Edema: No Labs: CBC, BMP 08/14/16 05:36 08/14/16 05:36 INR, PTT INR 1.30 (0.82-1.09) H 08/13/16 05:35 Problem List - Problems (1) Acute cholecystitis due to biliary calculus Code(s): K80.00 - CALCULUS OF GALLBLADDER W ACUTE CHOLECYST W/O OBSTRUCTION (2) Cholangitis Code(s): K83.0 - CHOLANGITIS (3) Sepsis Code(s): A41.9 - SEPSIS, UNSPECIFIED ORGANISM Assessment/Plan Microbiology 08/11/16 11:30 Urine - Urine Clean Catch Urine Culture - Final NO GROWTH OBTAINED 08/11/16 08:37 Blood - Peripheral Venous Blood Culture - Preliminary NO GROWTH OBTAINED AFTER 72 HOURS, INCUBATION TO CONTINUE FOR 2 DAYS. 08/11/16 08:25 Blood - Peripheral Venous Blood Culture - Preliminary NO GROWTH OBTAINED AFTER 72 HOURS, INCUBATION TO CONTINUE FOR 2 DAYS. Laboratory Tests 08/13/16 08/14/16 08/14/16 05:35 05:36 05:36 WBC 6.3 Hgb 12.5 D Hct 37.4 Plt Count 179 D INR 1.30 H BUN 5 L Creatinine 0.6 L AST 191 H D ALT 464 H Alkaline Phosphatase 302 H D Assessment Cholangitis with purulent bile drainage at ERCP Culture negative Cholecystitis Tachycardia Plan Can discontinue Carbepenem Substitute Zosyn 3.375grs q6h CRP IV therapy through the weekend Cholecystectomy when medically cleared by cardiology Cat PA
[2016-08-14] MEDS: PIPERACILLIN/TAZOB 3.375 GM 50 ML IVPB SCH ×2 (15:56→21:32)
--- NOTE | 2016-08-14 16:04 | PN ---
GI Progress Note Subjective: GI Note: LFTs normalizing. Pain free. - Objective Vital Signs: Vital Signs Temperature 97.2 F L 08/14/16 14:50 Pulse Rate 70 08/14/16 14:50 Respiratory Rate 20 08/14/16 14:50 Blood Pressure 143/98 08/14/16 14:50 O2 Sat by Pulse Oximetry (%) 98 08/14/16 09:00 CBC,CMP WBC 6.3 K/mm3 (4.0-10.0) 08/14/16 05:36 RBC 3.91 M/mm3 (4.00-5.60) L 08/14/16 05:36 Hgb 12.5 GM/dL (11.7-16.9) D 08/14/16 05:36 Hct 37.4 % (35.4-49) 08/14/16 05:36 MCV 95.6 fl (80-96) 08/14/16 05:36 MCHC 33.4 g/dl (32.0-35.9) 08/14/16 05:36 RDW 13.7 % (11.9-15.9) 08/14/16 05:36 Plt Count 179 K/MM3 (134-434) D 08/14/16 05:36 MPV 8.2 fl (7.5-11.1) 08/14/16 05:36 Neutrophils % 60.2 % (42.8-82.8) 08/14/16 05:36 Lymphocytes % 22.5 % (8-40) D 08/14/16 05:36 Monocytes % 11.7 % (3.8-10.2) H 08/14/16 05:36 Eosinophils % 4.9 % (0-4.5) H 08/14/16 05:36 Basophils % 0.7 % (0-2.0) 08/14/16 05:36 Sodium 143 mmol/L (136-145) 08/14/16 05:36 Potassium 4.0 mmol/L (3.5-5.1) D 08/14/16 05:36 Chloride 104 mmol/L (98-107) 08/14/16 05:36 Carbon Dioxide 31 mmol/L (21-32) 08/14/16 05:36 Anion Gap 8 (8-16) 08/14/16 05:36 BUN 5 mg/dL (7-18) L 08/14/16 05:36 Creatinine 0.6 mg/dL (0.7-1.3) L 08/14/16 05:36 Creat Clearance w eGFR > 60 (>60) 08/14/16 05:36 Random Glucose 97 mg/dL (74-106) 08/14/16 05:36 Hemoglobin A1c % 5.6 % (4.8-6.0) 08/11/16 06:00 Lactic Acid 1.123 mmol/L (0.4-2.0) 08/11/16 18:00 Calcium 8.6 mg/dL (8.5-10.1) 08/14/16 05:36 Phosphorus 1.9 mg/dL (2.5-4.9) L D 08/11/16 06:00 Magnesium 2.1 mg/dL (1.8-2.4) 08/14/16 05:36 Total Bilirubin 1.0 mg/dL (0.2-1.0) 08/14/16 05:36 Direct Bilirubin 0.8 mg/dL (0.0-0.2) H D 08/13/16 05:35 AST 191 U/L (15-37) H D 08/14/16 05:36 ALT 464 U/L (12-78) H 08/14/16 05:36 Alkaline Phosphatase 302 U/L (45-117) H D 08/14/16 05:36 Creatine Kinase Cancelled 08/13/16 06:00 Troponin I < 0.02 ng/ml (0.00-0.05) 08/13/16 22:15 C-Reactive Protein 4.4 MG/DL (0.00-0.3) H 08/13/16 05:35 Total Protein 6.7 g/dl (6.4-8.2) 08/14/16 05:36 Albumin 3.2 g/dl (3.4-5.0) L 08/14/16 05:36 Total Amylase 61 U/L (25-115) D 08/13/16 05:35 Lipase 205 U/L (73-393) 08/13/16 05:35 Constitutional: Calm ...Auscultate: Yes: Normoactive Bowel Sounds ...Palpate: Yes: Soft, Other (nontender) Labs: CBC, BMP 08/14/16 05:36 08/14/16 05:36 INR, PTT INR 1.30 (0.82-1.09) H 08/13/16 05:35 Laboratory Tests 08/14/16 05:36 Total Bilirubin 1.0 AST 191 H D ALT 464 H Alkaline Phosphatase 302 H D Assessment/Plan Resolved cholangitis following CBD stone extraction but has residual cholecystitis. Discussed wth Dr Shelton and concur with continuing antibiotic until the GB is removed. Await cardiac clearance.
--- NOTE | 2016-08-14 16:26 | PN ---
Physical Exam: SUBJECTIVE: Patient seen and examined at bedside. Complains of chronic pain from post-herpetic neuralgia. Lyrica does help. Denies abdominal pain. Tolerating clears, few crackers. OBJECTIVE: Vital Signs Period Temp Pulse Resp BP Sys/Rubio Pulse Ox Last 24 Hr 97.0 F-97.9 F 66-80 18-20 110-152/60-98 97-98 GENERAL: The patient is awake, alert, and fully oriented, in no acute distress. HEAD: Normal with no signs of trauma. EYES: PERRL, extraocular movements intact, sclera anicteric, conjunctiva clear. No ptosis. LUNGS: Breath sounds equal, clear to auscultation bilaterally, no wheezes, no crackles, no accessory muscle use. HEART: Regular rate and rhythm, S1, S2 without murmur, rub or gallop. ABDOMEN: Soft, nontender, nondistended, normoactive bowel sounds, no guarding, no rebound EXTREMITIES: 2+ pulses, warm, well-perfused, no edema. NEUROLOGICAL: Cranial nerves II through XII grossly intact. Normal speech, gait not observed. Laboratory Results - last 24 hr 08/13/16 08/13/16 08/14/16 16:34 22:15 05:36 WBC RBC Hgb Hct MCV MCHC RDW Plt Count MPV Neutrophils % Lymphocytes % Monocytes % Eosinophils % Basophils % Sodium Potassium Chloride Carbon Dioxide Anion Gap BUN Creatinine Creat Clearance w eGFR Random Glucose Calcium Magnesium Total Bilirubin AST ALT Alkaline Phosphatase Troponin I < 0.02 Total Protein Albumin Blood Type O POSITIVE O POSITIVE Antibody Screen Negative Negative 08/14/16 08/14/16 05:36 05:36 WBC 6.3 RBC 3.91 L Hgb 12.5 D Hct 37.4 MCV 95.6 MCHC 33.4 RDW 13.7 Plt Count 179 D MPV 8.2 Neutrophils % 60.2 Lymphocytes % 22.5 D Monocytes % 11.7 H Eosinophils % 4.9 H Basophils % 0.7 Sodium 143 Potassium 4.0 D Chloride 104 Carbon Dioxide 31 Anion Gap 8 BUN 5 L Creatinine 0.6 L Creat Clearance w eGFR > 60 Random Glucose 97 Calcium 8.6 Magnesium 2.1 Total Bilirubin 1.0 AST 191 H D ALT 464 H Alkaline Phosphatase 302 H D Troponin I Total Protein 6.7 Albumin 3.2 L Blood Type Antibody Screen Active Medications Generic Name Dose Route Start Last Admin Trade Name Freq PRN Reason Stop Dose Admin Acetaminophen 650 mg 08/11/16 11:10 Tylenol Suppository - [place] Q6H PRN FEVER OR PAIN Lactated Ringer's 1,000 mls @ 125 mls/hr 08/13/16 08:00 08/14/16 10:10 Lactated Ringers Solution IV 125 mls/hr ASDIR SULEIMAN Administration Piperacillin Sod/Tazobactam Sod 50 mls @ 100 mls/hr 08/14/16 15:30 08/14/16 15: 56 Zosyn 3.375gm Ivpb (Pre-Docked) IVPB 100 mls/hr Q6H-IV SULEIMAN Administration Lisinopril 5 mg 08/11/16 10:00 08/14/16 10:10 Prinivil PO 5 mg DAILY SULEIMAN Administration Metoprolol Succinate 50 mg 08/14/16 10:00 08/14/16 10:12 Toprol Xl - PO 50 mg DAILY SULEIMAN Administration Ondansetron HCl 4 mg 08/11/16 01:25 Zofran Injection IVPB Q6H PRN NAUSEA Pantoprazole Sodium 40 mg 08/11/16 10:00 08/14/16 10:11 Protonix - PO 40 mg DAILY SULEIMAN Administration Pregabalin 150 mg 08/11/16 10:00 08/14/16 10:11 Lyrica - PO 150 mg BID SULEIMAN Administration ASSESSMENT/PLAN 76 year-old man with a PMH of HTN, GERD, kidney stones, vertigo, and post- herpetic neuralgia admitted for acute cholecystitis. Severe sepsis secondary to acute cholecystitis due to biliary obstruction --2 ERCP with sphincterotomy, two stones removed from CBD --liver enzymes normalizing --afebrile, WBC wnl --continue meropenem (day #3) PSVT NSVT --PSVT improved with the start of beta jt, reduction in ventricular ectopy --troponins neg x 3 --2/ Echo: LV normal; RV normal; mild to moderate MR; mild TR; mild pHTN; mild AI --switch to Toprol XL --per cardiology, if rhythm remains stable over next 24 hours, then can proceed to cholecystectomy, if deemed urgent, over weekend with beta jt and post op monitoring on tele --if cholecystectomy can wait until next week, then will plan for pharm MIBI Wednesday AM for further CV risk stratification. Hypertension --BP elevated --continue lisinopril, Toprol XL Post-herpetic neuralgia --continue Lyrica GERD --continue protonix Hypokalemia, resolved FEN Fluids: PO intake adequate Electrolytes: replete as indicated; keep K>4 and Mg>2 Nutrition: clears DVT prophylaxis: hold chemical prophylaxis due to scheduled surgery; SCDs Dispo: continues to require inpatient care. Full Code. Visit type - Emergency Visit Emergency Visit: Yes ED Registration Date: 08/11/16 Care time: The patient presented to the Emergency Department on the above date and was hospitalized for further evaluation of their emergent condition. - New Patient This patient is new to me today: No - Critical Care Critical Care patient: No
[2016-08-14] MEDS ORDERED: POTASSIUM CHLORIDE TABS 20 MEQ TABLET.ER (FP) PO ONE (16:36)
--- NOTE | 2016-08-14 18:03 | CONS ---
DATE OF CONSULTATION: DATE OF DICTATION: 08/14/2016 INFECTIOUS DISEASE CONSULTATION HISTORY OF PRESENT ILLNESS: This is a 76-year-old [place] male who I am asked to see for antibiotic management of cholangitis. This 76-year-old male presented with a history of hypertension, kidney stones, and post-herpetic neuralgia, presented to the emergency room with epigastric pain which began on the day of admission. He was noted to have a mildly elevated white count and low grade fever which subsequently fercho to 101. A sonogram of the gallbladder obtained following admission showed moderate suspicion for cholecystitis with a dilated common bile duct. An abdominal MRI followed which showed cholelithiasis with MRI findings of acute cholecystitis. Choledocholithiasis with a common bile duct dilatation to 1.5 cm was noted. Consultation with Dr. Bell was obtained, who placed the patient on meropenem. Cultures of blood and urine were obtained, dated 08/11, which currently are no growth. He was seen by the GI service and on August 12, taken for an ERCP. Findings included 2 stones in the common bile duct and a dilated common hepatic duct, and sphincterotomy was performed with a recommendation that patient would require cholecystectomy. He has defervesced since admission with no fever and definite improvement of his abdominal pain, and I am asked to see him for further evaluation. His course has been complicated by a rhythm strip showing a tachycardia of 200 beats per minute. The patient did feel palpitations along with this, but denies ever having any proceeding history of chest pain, syncope, or palpitations. He is currently on a telemetry unit for cardiac monitoring and is awaiting cholecystectomy once medically cleared. CURRENT MEDICATIONS: Include meropenem, lisinopril, Lyrica, metoprolol, Protonix. ALLERGIES: None known. SOCIAL HISTORY: . Lives locally. No history of smoking or substance abuse, and no alcohol history. FAMILY HISTORY: Reviewed and noncontributory. REVIEW OF SYSTEMS: Respiratory: No cough, shortness of breath. Cardiac: Currently no palpitations, syncope, chest pain. Gastrointestinal: No abdominal pain, nausea, vomiting, diarrhea, blood per rectum. Genitourinary: No dysuria, hematuria, urinary frequency. PHYSICAL EXAMINATION: General: He was an alert pleasant male in no acute distress. Vital signs: Temperature 97.2, pulse 70, blood pressure 143/98, respirations 20. Neck: Supple. No adenopathy. Lungs: Clear to percussion and auscultation. Heart: S1, S2. Regular rhythm without audible murmur. Abdomen: Soft. Nontender. Positive bowel sounds. No organomegaly. No guarding, rebound. Extremities: No clubbing, cyanosis, or edema. LABORATORY: The white count of 6.3 with a hemoglobin of 12.5 and platelets of 179. INR 1.3. BUN 5, creatinine 0.6, AST 191, ALT 464, and alkaline phosphatase 302. Urinalysis is negative for leukocyte esterase or nitrites. Chest x-ray obtained from admission shows no pulmonary disease. ASSESSMENT: A 76-year-old [place] male presents with abdominal findings with clinical findings consistent with cholecystitis and cholangitis. Culture negative situation blood and urine. He has had an endoscopic retrograde cholangiopancreatography with sphincterotomy performed, but is at risk for recurrent cholangitis. Clinically, he appears to be doing well. At this point, he does not need carbapenem and can be switched to piperacillin, tazobactam 3.375 g q.6 hours. A C-reactive protein will be obtained, and he will be continued on parenteral antibiotics at least through the weekend. Liver enzymes will be followed, and he will have a cholecystectomy when cleared by cardiology. SURAJ HERNANDES M.D. DIONTE/[id number]
[2016-08-15] MEDS: PIPERACILLIN/TAZOB 3.375 GM 50 ML IVPB SCH ×4 (02:30→21:59)
[2016-08-15 07:56] LABS: BASOPHIL 0.8 % (0-2.0); EOSINOPHIL 5.6 % (0-4.5); MCH 32.1 pg (25.7-33.7); MCHC 33.4 g/dl (32.0-35.9); MEAN CELL VOLUME 96.3 fl (80-96); MEAN PLT VOLUME 7.9 fl (7.5-11.1); NEUTROPHILS 52.9 % (42.8-82.8); PLATELET COUNT 188 K/MM3 (134-434); RDW 13.8 % (11.9-15.9); WHITE BLOOD COUNT 6.8 K/mm3 (4.0-10.0)
[2016-08-15 08:19] LABS: ALBUMIN 3.1 g/dl (3.4-5.0); ANION GAP 7 (8-16); CALCIUM 9.2 mg/dL (8.5-10.1); CO2 30 mmol/L (21-32); CREATININE 0.8 mg/dL (0.7-1.3); GLUCOSE,RANDOM 88 mg/dL (74-106); MAGNESIUM 1.8 mg/dL (1.8-2.4); PHOSPHOROUS 3.3 mg/dL (2.5-4.9); SGOT/AST 123 U/L (15-37); SGPT/ALT 358 U/L (12-78)
[2016-08-15 08:22] LABS: ALK PHOS 320 U/L (45-117); BILIRUBIN,TOTAL 1.1 mg/dL (0.2-1.0); TOT PROT 6.6 g/dl (6.4-8.2)
--- NOTE | 2016-08-15 08:29 | PN ---
Physical Exam: SUBJECTIVE: Patient seen and examined OBJECTIVE: Vital Signs Period Temp Pulse Resp BP Sys/Rubio Pulse Ox Last 24 Hr 97.2 F-97.5 F 62-77 20-20 116-152/80-98 98-98 GENERAL: The patient is awake, alert, and fully oriented, in no acute distress. HEAD: Normal with no signs of trauma. EYES: PERRL, extraocular movements intact, sclera anicteric, conjunctiva clear. No ptosis. LUNGS: Breath sounds equal, clear to auscultation bilaterally, no wheezes, no crackles, no accessory muscle use. HEART: Regular rate and rhythm, S1, S2 without murmur, rub or gallop. ABDOMEN: Soft, nontender, nondistended, normoactive bowel sounds, no guarding, no rebound EXTREMITIES: 2+ pulses, warm, well-perfused, no edema. NEUROLOGICAL: Cranial nerves II through XII grossly intact. Normal speech, gait not observed. Laboratory Results - last 24 hr 08/14/16 08/14/16 08/14/16 05:36 05:36 16:15 WBC RBC Hgb Hct MCV MCHC RDW Plt Count MPV Neutrophils % Lymphocytes % Monocytes % Eosinophils % Basophils % Sodium 143 Potassium 4.0 D Chloride 104 Carbon Dioxide 31 Anion Gap 8 BUN 5 L Creatinine 0.6 L Creat Clearance w eGFR > 60 Random Glucose 97 Calcium 8.6 Magnesium 2.1 Total Bilirubin 1.0 AST 191 H D ALT 464 H Alkaline Phosphatase 302 H D C-Reactive Protein 2.8 H D Total Protein 6.7 Albumin 3.2 L Blood Type O POSITIVE Antibody Screen Negative 08/15/16 05:55 WBC 6.8 RBC 3.89 L Hgb 12.5 Hct 37.5 MCV 96.3 H MCHC 33.4 RDW 13.8 Plt Count 188 MPV 7.9 Neutrophils % 52.9 Lymphocytes % 29.5 D Monocytes % 11.2 H Eosinophils % 5.6 H Basophils % 0.8 Sodium Potassium Chloride Carbon Dioxide Anion Gap BUN Creatinine Creat Clearance w eGFR Random Glucose Calcium Magnesium Total Bilirubin AST ALT Alkaline Phosphatase C-Reactive Protein Total Protein Albumin Blood Type Antibody Screen Active Medications Generic Name Dose Route Start Last Admin Trade Name Freq PRN Reason Stop Dose Admin Acetaminophen 650 mg 08/11/16 11:10 Tylenol Suppository - [place] Q6H PRN FEVER OR PAIN Lactated Ringer's 1,000 mls @ 125 mls/hr 08/13/16 08:00 08/14/16 21:32 Lactated Ringers Solution IV 125 mls/hr ASDIR [facility] Administration Piperacillin Sod/Tazobactam Sod 50 mls @ 100 mls/hr 08/14/16 15:30 08/15/16 02: 30 Zosyn 3.375gm Ivpb (Pre-Docked) IVPB 100 mls/hr Q6H-IV [facility] Administration Lisinopril 5 mg 08/11/16 10:00 08/14/16 10:10 Prinivil PO 5 mg DAILY [facility] Administration Metoprolol Succinate 50 mg 08/14/16 10:00 08/14/16 10:12 Toprol Xl - PO 50 mg DAILY [facility] Administration Ondansetron HCl 4 mg 08/11/16 01:25 Zofran Injection IVPB Q6H PRN NAUSEA Pantoprazole Sodium 40 mg 08/11/16 10:00 08/14/16 10:11 Protonix - PO 40 mg DAILY [facility] Administration Pregabalin 150 mg 08/11/16 10:00 08/14/16 21:32 Lyrica - PO 150 mg BID [facility] Administration ASSESSMENT/PLAN 76 year-old man with a PMH of HTN, GERD, kidney stones, vertigo, and post- herpetic neuralgia admitted for acute cholecystitis. Severe sepsis secondary to acute cholecystitis due to biliary obstruction --08/12 ERCP with sphincterotomy, two stones removed from CBD --liver enzymes normalizing --afebrile, WBC wnl --switched yesterday to Zosyn PSVT NSVT --PSVT improved with the start of beta jt, reduction in ventricular ectopy --troponins neg x 3 --08/13 Echo: LV normal; RV normal; mild to moderate MR; mild TR; mild pHTN; mild AI --switch to Toprol XL --per cardiology, if rhythm remains stable over next 24 hours, then can proceed to cholecystectomy, if deemed urgent, over weekend with beta jt and post op monitoring on tele --if cholecystectomy can wait until next week, then will plan for pharm MIBI Wednesday AM for further CV risk stratification. Hypertension --BP is better controlled with Toprol XL, continue lisinopril Post-herpetic neuralgia --continue Lyrica GERD --continue protonix Hypokalemia, resolved --K 4.3 Hypomagnesemia --Mg 1.8, repleted 2g IV FEN Fluids: PO intake adequate Electrolytes: replete as indicated; keep K>4 and Mg>2 Nutrition: clears DVT prophylaxis: hold chemical prophylaxis due to scheduled surgery; SCDs Dispo: continues to require inpatient care. Full Code. Visit type - Emergency Visit Emergency Visit: Yes ED Registration Date: 08/11/16 Care time: The patient presented to the Emergency Department on the above date and was hospitalized for further evaluation of their emergent condition. - New Patient This patient is new to me today: No - Critical Care Critical Care patient: No
--- NOTE | 2016-08-15 09:31 | PN ---
Progress Note, Physician - Current Medication List Current Medications: Active Medications Acetaminophen (Tylenol Suppository -) 650 mg [place] Q6H PRN PRN Reason: FEVER OR PAIN Lactated Ringer's (Lactated Ringers Solution) 1,000 mls @ 125 mls/hr IV ASDIR [facility] Last Admin: 08/14/16 21:32 Dose: 125 mls/hr Piperacillin Sod/Tazobactam Sod (Zosyn 3.375gm Ivpb (Pre-Docked)) 50 mls @ 100 mls/hr IVPB Q6H-IV [facility] Last Admin: 08/15/16 02:30 Dose: 100 mls/hr Lisinopril (Prinivil) 5 mg PO DAILY [facility] Last Admin: 08/14/16 10:10 Dose: 5 mg Metoprolol Succinate (Toprol Xl -) 50 mg PO DAILY [facility] Last Admin: 08/14/16 10:12 Dose: 50 mg Ondansetron HCl (Zofran Injection) 4 mg IVPB Q6H PRN PRN Reason: NAUSEA Pantoprazole Sodium (Protonix -) 40 mg PO DAILY [facility] Last Admin: 08/14/16 10:11 Dose: 40 mg Pregabalin (Lyrica -) 150 mg PO BID [facility] Last Admin: 08/14/16 21:32 Dose: 150 mg - Objective Vital Signs: Vital Signs Temperature 97.2 F L 08/15/16 06:00 Pulse Rate 62 08/15/16 06:00 Respiratory Rate 20 08/15/16 06:00 Blood Pressure 135/80 08/15/16 06:00 O2 Sat by Pulse Oximetry (%) 98 08/14/16 21:00 Eyes: Yes: WNL, Conjunctiva Clear, EOM Intact HENT: Yes: WNL, Atraumatic, Normocephalic Neck: Yes: WNL, Supple, Trachea Midline Cardiovascular: Yes: WNL, Regular Rate and Rhythm Respiratory: Yes: WNL, Regular, CTA Bilaterally Gastrointestinal: Yes: WNL, Normal Bowel Sounds Genitourinary: Yes: WNL Musculoskeletal: Yes: WNL Extremities: Yes: WNL Edema: No Integumentary: Yes: WNL Neurological: Yes: WNL, Alert, Oriented ...Motor Strength: WNL Psychiatric: Yes: WNL Labs: CBC, BMP 08/15/16 05:55 08/15/16 05:55 INR, PTT INR 1.30 (0.82-1.09) H 08/13/16 05:35 Assessment/Plan IMP: Acute cholecystitis PSVT NSVT Hypokalemia REC: Tolerated metoprolol tartrate well with near resolution of PSVT and reduction in V-ectopy. Some of the rhythm disturbance may have been exacerbated by hypokalemia, now corrected. Switch to Toprol XL today and continue tele. Maintain K= >4 and Mg2+ >2. Cardiac enzymes are negative. LV function is normal. If rhythm remains stable over next 24 hours, then can proceed to cholecystectomy , if deemed urgent, over weekend with beta jt and post op monitoring on tele. If cholecystectomy can wait until next week, then will plan for pharm MIBI Wednesday for further CV risk stratification. Currently afebrile with normalized WBC.
[2016-08-15] MEDS: LISINOPRIL 5 MG TABLET (FP) PO SCH (10:11)
[2016-08-15] MEDS: METOPROLOL SUCCINATE 50 MG TAB.SR.24H (FP) PO SCH (10:11)
[2016-08-15] MEDS: PREGABALIN 75 MG CAPSULE PO SCH ×2 (10:11→21:59)
[2016-08-15] MEDS: PANTOPRAZOLE 40 MG TABLET (FP) PO SCH (10:11)
[2016-08-15] MEDS: LACTATED RINGERS SOLUTION 1,000 ML IV SCH (10:14)
[2016-08-15] MEDS ORDERED: MAGNESIUM SULF 50% (8.12 MEQ/2 ML-1 GM VIAL) IVPB ONE (11:00)
--- NOTE | 2016-08-15 11:16 | PN ---
Progress Note, Physician History of Present Illness: Awake, alert in bed No complaints Denies abdominal pain, N/V Afebrile WBC WBL - Current Medication List Current Medications: Active Medications Acetaminophen (Tylenol Suppository -) 650 mg [place] Q6H PRN PRN Reason: FEVER OR PAIN Lactated Ringer's (Lactated Ringers Solution) 1,000 mls @ 125 mls/hr IV [facility] Last Admin: 08/15/16 10:14 Dose: 125 mls/hr Piperacillin Sod/Tazobactam Sod (Zosyn 3.375gm Ivpb (Pre-Docked)) 50 mls @ 100 mls/hr IVPB Q6H-IV [facility] Last Admin: 08/15/16 10:11 Dose: 100 mls/hr Lisinopril (Prinivil) 5 mg PO DAILY [facility] Last Admin: 08/15/16 10:11 Dose: 5 mg Metoprolol Succinate (Toprol Xl -) 50 mg PO DAILY [facility] Last Admin: 08/15/16 10:11 Dose: 50 mg Ondansetron HCl (Zofran Injection) 4 mg IVPB Q6H PRN PRN Reason: NAUSEA Pantoprazole Sodium (Protonix -) 40 mg PO DAILY [facility] Last Admin: 08/15/16 10:11 Dose: 40 mg Pregabalin (Lyrica -) 150 mg PO BID [facility] Last Admin: 08/15/16 10:11 Dose: 150 mg - Objective Vital Signs: Vital Signs Temperature 98.2 F 08/15/16 10:00 Pulse Rate 74 08/15/16 10:00 Respiratory Rate 14 08/15/16 10:00 Blood Pressure 142/94 08/15/16 10:00 O2 Sat by Pulse Oximetry (%) 98 08/14/16 21:00 Constitutional: Yes: No Distress Eyes: Yes: Conjunctiva Clear Cardiovascular: Yes: Regular Rate and Rhythm, S1, S2 Respiratory: Yes: CTA Bilaterally Gastrointestinal: Yes: Normal Bowel Sounds, Soft. No: Tenderness Edema: No Labs: CBC, BMP 08/15/16 05:55 08/15/16 05:55 INR, PTT INR 1.30 (0.82-1.09) H 08/13/16 05:35 Assessment/Plan S/P ERCP/sphincterotomy/ stone extraction Cholangitis-resolved Elevated LFTs- improving Continue empiric zosyn
[2016-08-16] MEDS: PIPERACILLIN/TAZOB 3.375 GM 50 ML IVPB SCH ×4 (03:56→22:47)
--- NOTE | 2016-08-16 09:18 | PN ---
Progress Note (short form) - Note Progress Note: Day #4 s/p ERCP with stone extraction & sphincterotomy No acute events per RN notes. Resting comfortably. Feeling better. Cardio notes appreciated. Last Vital Signs Temp Pulse Resp BP Pulse Ox 97.8 F 74 20 145/88 96 08/16/16 08:00 08/16/16 08:00 08/16/16 08:02 08/16/16 08:00 08/16/16 08:02 CBC, BMP 08/15/16 05:55 08/15/16 05:55 Hepatic Panel Total Bilirubin 1.1 mg/dL (0.2-1.0) H 08/15/16 05:55 Direct Bilirubin 0.8 mg/dL (0.0-0.2) H D 08/13/16 05:35 AST 123 U/L (15-37) H D 08/15/16 05:55 ALT 358 U/L (12-78) H D 08/15/16 05:55 Alkaline Phosphatase 320 U/L (45-117) H 08/15/16 05:55 Albumin 3.1 g/dl (3.4-5.0) L 08/15/16 05:55 Problem List - Problems (1) Acute cholecystitis due to biliary calculus Assessment/Plan: s/p ERCP with stone extraction and sphincterotomy. PSVT nearly resolved. ALT/AST/ALK Phos still elevated but trending down. Continue to monitor. Per cardio note, if rhythm remains stable over next 24 hours, then can proceed to cholecystectomy, if deemed urgent. If cholecystectomy can wait, then will plan for pharm MIBI Wednesday for further CV risk stratification. Code(s): K80.00 - CALCULUS OF GALLBLADDER W ACUTE CHOLECYST W/O OBSTRUCTION
[2016-08-16] MEDS: PREGABALIN 75 MG CAPSULE PO SCH ×2 (09:42→22:47)
[2016-08-16] MEDS: METOPROLOL SUCCINATE 50 MG TAB.SR.24H (FP) PO SCH (09:43)
[2016-08-16] MEDS: PANTOPRAZOLE 40 MG TABLET (FP) PO SCH (09:43)
[2016-08-16] MEDS: LISINOPRIL 5 MG TABLET (FP) PO SCH (09:43)
[2016-08-16] MEDS ORDERED: PT OWN MED DRAWER 7, Y5N ONE (09:43)
[2016-08-16] MEDS: LACTATED RINGERS SOLUTION 1,000 ML IV SCH (09:46)
--- NOTE | 2016-08-16 10:12 | PN ---
Progress Note, Physician - Current Medication List Current Medications: Active Medications Acetaminophen (Tylenol Suppository -) 650 mg ID Q6H PRN PRN Reason: FEVER OR PAIN Lactated Ringer's (Lactated Ringers Solution) 1,000 mls @ 125 mls/hr IV ASDIR [facility] Last Admin: 08/16/16 09:46 Dose: 125 mls/hr Piperacillin Sod/Tazobactam Sod (Zosyn 3.375gm Ivpb (Pre-Docked)) 50 mls @ 100 mls/hr IVPB Q6H-IV [facility] Last Admin: 08/16/16 09:44 Dose: 100 mls/hr Lisinopril (Prinivil) 5 mg PO DAILY [facility] Last Admin: 08/16/16 09:43 Dose: 5 mg Metoprolol Succinate (Toprol Xl -) 50 mg PO DAILY [facility] Last Admin: 08/16/16 09:43 Dose: 50 mg Ondansetron HCl (Zofran Injection) 4 mg IVPB Q6H PRN PRN Reason: NAUSEA Pantoprazole Sodium (Protonix -) 40 mg PO DAILY [facility] Last Admin: 08/16/16 09:43 Dose: 40 mg Pregabalin (Lyrica -) 150 mg PO BID [facility] Last Admin: 08/16/16 09:42 Dose: 150 mg - Objective Vital Signs: Vital Signs Temperature 97.8 F 08/16/16 08:00 Pulse Rate 74 08/16/16 08:00 Respiratory Rate 20 08/16/16 08:02 Blood Pressure 145/88 08/16/16 08:00 O2 Sat by Pulse Oximetry (%) 96 08/16/16 08:02 Eyes: Yes: WNL, Conjunctiva Clear, EOM Intact HENT: Yes: WNL, Atraumatic, Normocephalic Neck: Yes: WNL, Supple, Trachea Midline Cardiovascular: Yes: WNL, Regular Rate and Rhythm Respiratory: Yes: WNL, Regular, CTA Bilaterally Gastrointestinal: Yes: WNL, Normal Bowel Sounds Genitourinary: Yes: WNL Musculoskeletal: Yes: WNL Extremities: Yes: WNL Edema: No Integumentary: Yes: WNL Neurological: Yes: WNL, Alert, Oriented ...Motor Strength: WNL Psychiatric: Yes: WNL Labs: CBC, BMP 08/15/16 05:55 08/15/16 05:55 INR, PTT INR 1.30 (0.82-1.09) H 08/13/16 05:35 Assessment/Plan IMP: Acute cholecystitis PSVT NSVT Hypokalemia REC: Tolerated metoprolol tartrate well with near resolution of PSVT and reduction in V-ectopy. Some of the rhythm disturbance may have been exacerbated by hypokalemia, now corrected. Switch to Toprol XL today and continue tele. Maintain K= >4 and Mg2+ >2. Cardiac enzymes are negative. LV function is normal. If rhythm remains stable over next 24 hours, then can proceed to cholecystectomy , if deemed urgent, over weekend with beta jt and post op monitoring on tele. If cholecystectomy can wait until next week, then will plan for pharm MIBI Wednesday for further CV risk stratification. Currently afebrile with normalized WBC.
--- NOTE | 2016-08-16 18:28 | PN ---
Physical Exam: SUBJECTIVE: Patient seen and examined OBJECTIVE: Vital Signs Period Temp Pulse Resp BP Sys/Rubio Pulse Ox Last 24 Hr 97.7 F-98.3 F 66-77 20-20 126-145/75-98 96-96 GENERAL: The patient is awake, alert, and fully oriented, in no acute distress. HEAD: Normal with no signs of trauma. EYES: PERRL, extraocular movements intact, sclera anicteric, conjunctiva clear. No ptosis. ENT: Ears normal, nares patent, oropharynx clear without exudates, moist mucous membranes. NECK: Trachea midline, full range of motion, supple. LUNGS: Breath sounds equal, clear to auscultation bilaterally, no wheezes, no crackles, no accessory muscle use. HEART: Regular rate and rhythm, S1, S2 without murmur, rub or gallop. ABDOMEN: Soft, nontender, nondistended, normoactive bowel sounds, no guarding, no rebound, no hepatosplenomegaly, no masses. EXTREMITIES: 2+ pulses, warm, well-perfused, no edema. NEUROLOGICAL: Cranial nerves II through XII grossly intact. Normal speech, gait not observed. PSYCH: Normal mood, normal affect. SKIN: Warm, dry, normal turgor, no rashes or lesions noted Active Medications Generic Name Dose Route Start Last Admin Trade Name Freq PRN Reason Stop Dose Admin Acetaminophen 650 mg 08/11/16 11:10 Tylenol Suppository - [place] Q6H PRN FEVER OR PAIN Lactated Ringer's 1,000 mls @ 125 mls/hr 08/13/16 08:00 08/16/16 09:46 Lactated Ringers Solution IV 125 mls/hr ASDIR [facility] Administration Piperacillin Sod/Tazobactam Sod 50 mls @ 100 mls/hr 08/14/16 15:30 08/16/16 15: 38 Zosyn 3.375gm Ivpb (Pre-Docked) IVPB 100 mls/hr Q6H-IV [facility] Administration Lisinopril 5 mg 08/11/16 10:00 08/16/16 09:43 Prinivil PO 5 mg DAILY [facility] Administration Metoprolol Succinate 50 mg 08/14/16 10:00 08/16/16 09:43 Toprol Xl - PO 50 mg DAILY [facility] Administration Ondansetron HCl 4 mg 08/11/16 01:25 Zofran Injection IVPB Q6H PRN NAUSEA Pantoprazole Sodium 40 mg 08/11/16 10:00 08/16/16 09:43 Protonix - PO 40 mg DAILY [facility] Administration Pregabalin 150 mg 08/11/16 10:00 08/16/16 09:42 Lyrica - PO 150 mg BID SULEIMAN Administration ASSESSMENT/PLAN: 76 year-old man with a PMH of HTN, GERD, kidney stones, vertigo, and post- herpetic neuralgia admitted for acute cholecystitis. Severe sepsis secondary to acute cholecystitis due to biliary obstruction --08/12 ERCP with sphincterotomy, two stones removed from CBD --liver enzymes normalizing --afebrile, WBC wnl --continue Zosyn --plan for cholecystectomy after stress test on Wednesday PSVT NSVT --PSVT improved with the start of beta jt, reduction in ventricular ectopy --troponins neg x 3 --08/13 Echo: LV normal; RV normal; mild to moderate MR; mild TR; mild pHTN; mild AI --continue Toprol XL --stress test planned for Wednesday Hypertension --BP is better controlled with Toprol XL, continue lisinopril Post-herpetic neuralgia --continue Lyrica GERD --continue protonix FEN Fluids: PO intake adequate Electrolytes: replete as indicated; keep K>4 and Mg>2 Nutrition: clears DVT prophylaxis: hold chemical prophylaxis due to scheduled surgery; SCDs Dispo: continues to require inpatient care. Full Code. Visit type - Emergency Visit Emergency Visit: Yes ED Registration Date: 08/11/16 Care time: The patient presented to the Emergency Department on the above date and was hospitalized for further evaluation of their emergent condition. - New Patient This patient is new to me today: No - Critical Care Critical Care patient: No
[2016-08-17] MEDS: PIPERACILLIN/TAZOB 3.375 GM 50 ML IVPB SCH ×2 (04:09→08:46)
[2016-08-17] MEDS: LACTATED RINGERS SOLUTION 1,000 ML IV SCH ×2 (07:47→20:33)
[2016-08-17 08:41] LABS: MCH 31.5 pg (25.7-33.7); MCHC 33.1 g/dl (32.0-35.9); MEAN CELL VOLUME 94.9 fl (80-96); MEAN PLT VOLUME 7.5 fl (7.5-11.1); PLATELET COUNT 206 K/MM3 (134-434); RDW 13.7 % (11.9-15.9); WHITE BLOOD COUNT 7.7 K/mm3 (4.0-10.0)
[2016-08-17 09:00] LABS: ALK PHOS 287 U/L (45-117); ANION GAP 7 (8-16); CALCIUM 8.9 mg/dL (8.5-10.1); CO2 29 mmol/L (21-32); CREATININE 0.7 mg/dL (0.7-1.3); GLUCOSE,RANDOM 94 mg/dL (74-106); SGOT/AST 107 U/L (15-37); SGPT/ALT 249 U/L (12-78); TOT PROT 6.4 g/dl (6.4-8.2)
[2016-08-17] MEDS ORDERED: DEXTROSE 5% IVPB ONE (10:00)
[2016-08-17] MEDS ORDERED: WATER IVPB ONE (10:00)
[2016-08-17] MEDS ORDERED: DIPYRIDAMOLE STRESS TEST IVPB ONE (10:00)
[2016-08-17] MEDS: PREGABALIN 75 MG CAPSULE PO SCH ×2 (11:45→21:47)
[2016-08-17] MEDS: LISINOPRIL 5 MG TABLET (FP) PO SCH (11:45)
[2016-08-17] MEDS: PANTOPRAZOLE 40 MG TABLET (FP) PO SCH (11:46)
[2016-08-17] MEDS: METOPROLOL SUCCINATE 50 MG TAB.SR.24H (FP) PO SCH (11:46)
--- NOTE | 2016-08-17 11:47 | PN ---
Progress Note, Physician History of Present Illness: seen and examined today in nad. having stress test. no new complaints. intermittent mild palpitations. no overnight events. - Current Medication List Current Medications: Active Medications Acetaminophen (Tylenol Suppository -) 650 mg [place] Q6H PRN PRN Reason: FEVER OR PAIN Lactated Ringer's (Lactated Ringers Solution) 1,000 mls @ 125 mls/hr IV ASDIR [facility] Last Admin: 08/16/16 09:46 Dose: 125 mls/hr Piperacillin Sod/Tazobactam Sod (Zosyn 3.375gm Ivpb (Pre-Docked)) 50 mls @ 100 mls/hr IVPB Q6H-IV [facility] Last Admin: 08/17/16 04:09 Dose: 100 mls/hr Lisinopril (Prinivil) 5 mg PO DAILY [facility] Last Admin: 08/16/16 09:43 Dose: 5 mg Metoprolol Succinate (Toprol Xl -) 50 mg PO DAILY [facility] Last Admin: 08/16/16 09:43 Dose: 50 mg Ondansetron HCl (Zofran Injection) 4 mg IVPB Q6H PRN PRN Reason: NAUSEA Pantoprazole Sodium (Protonix -) 40 mg PO DAILY [facility] Last Admin: 08/16/16 09:43 Dose: 40 mg Pregabalin (Lyrica -) 150 mg PO BID [facility] Last Admin: 08/16/16 22:47 Dose: 150 mg - Objective Vital Signs: Vital Signs Temperature 97.9 F 08/17/16 07:37 Pulse Rate 72 08/17/16 07:37 Respiratory Rate 18 08/17/16 07:40 Blood Pressure 127/85 08/17/16 07:37 O2 Sat by Pulse Oximetry (%) 97 08/17/16 07:40 Constitutional: Yes: Well Nourished, No Distress, Calm Eyes: Yes: WNL, Conjunctiva Clear, EOM Intact, PERRL HENT: Yes: WNL, Atraumatic, Normocephalic Neck: Yes: WNL, Supple, Trachea Midline Cardiovascular: Yes: WNL, Regular Rate and Rhythm, S1, S2. No: Bradycardia, Tachycardia, Pulse Irregular, Bruit, JVD, Gallop, Murmur, Rub, S3, S4, Varicosities Respiratory: Yes: WNL, Regular, CTA Bilaterally. No: Rales, Rhonchi, Wheezes Gastrointestinal: Yes: WNL, Normal Bowel Sounds, Soft. No: Distention, Tenderness Musculoskeletal: Yes: WNL Extremities: Yes: WNL Edema: No Peripheral Pulses WNL: Yes Peripheral Pulses: Left Doralis Pedis: 2+, Right Dorsalis Pedis: 2+ Integumentary: Yes: WNL Neurological: Yes: WNL, Alert, Oriented, Cran Nerves II-XII Intact ...Motor Strength: WNL Psychiatric: Yes: WNL, Alert, Oriented Labs: CBC, BMP 08/17/16 08:25 08/17/16 08:25 INR, PTT INR 1.30 (0.82-1.09) H 08/13/16 05:35 - ....Imaging Chest X-ray: Report Reviewed, Image Reviewed EKG: Report Reviewed, Image Reviewed Other: Report Reviewed, Image Reviewed (tele-nsr, apcs, pvcs, short PSVT 8 beats , no further NSVT) Problem List - Problems (1) Acute cholecystitis due to biliary calculus Code(s): K80.00 - CALCULUS OF GALLBLADDER W ACUTE CHOLECYST W/O OBSTRUCTION (2) Preop cardiovascular exam Code(s): Z01.810 - ENCOUNTER FOR PREPROCEDURAL CARDIOVASCULAR EXAMINATION (3) Tachycardia Code(s): R00.0 - TACHYCARDIA, UNSPECIFIED (4) Abnormal EKG Code(s): R94.31 - ABNORMAL ELECTROCARDIOGRAM [ECG] [EKG] (5) Palpitations Code(s): R00.2 - PALPITATIONS Assessment/Plan 76 year old man with a history of GERD, PUD, vertigo, admitted with abdominal pain and chills and found to have cholelithiasis with choledocholelithiasis s/p ERCP with stone removal and planned for robotic cholecystectomy, found to have tachycardia and palpitations c/w PSVT and NSVT. IMP: Acute cholecystitis PSVT NSVT Hypokalemia REC: K repleted Arrhythmias and palpitations have improved Echo showed normal LV/RV function, mild to mod mr, mild tr, mild AR, mild PAH Cont Toprol XL 50mg daily F/up nuclear stress test results from today, if no sig ischemia pt would be acceptable from a cardiac standpoint to proceed with surgery
--- NOTE | 2016-08-17 13:53 | PN ---
Progress Note (short form) - Note Progress Note: Subjective: The patient was seen and examined at the bedside, he states he is feeling "good" after his stress test. He denies any pain at this time. Stress test with LVEF 74%. Small zone of inferobasal fixed defect compatible with diaphragmatic attenuation Current Medications Generic Name Dose Route Start Last Admin Trade Name Freq PRN Reason Stop Dose Admin Acetaminophen 650 mg 08/11/16 11:10 Tylenol Suppository - NM Q6H PRN FEVER OR PAIN Lactated Ringer's 1,000 mls @ 125 mls/hr 08/13/16 08:00 08/17/16 07:47 Lactated Ringers Solution IV 125 mls/hr ASDIR SULEIMAN Administration Piperacillin Sod/Tazobactam Sod 50 mls @ 100 mls/hr 08/14/16 15:30 08/17/16 08: 46 Zosyn 3.375gm Ivpb (Pre-Docked) IVPB 100 mls/hr Q6H-IV SULEIMAN Administration Lisinopril 5 mg 08/11/16 10:00 08/17/16 11:45 Prinivil PO 5 mg DAILY SULEIMAN Administration Metoprolol Succinate 50 mg 08/14/16 10:00 08/17/16 11:46 Toprol Xl - PO 50 mg DAILY SULEIMAN Administration Ondansetron HCl 4 mg 08/11/16 01:25 Zofran Injection IVPB Q6H PRN NAUSEA Pantoprazole Sodium 40 mg 08/11/16 10:00 08/17/16 11:46 Protonix - PO 40 mg DAILY SULEIMAN Administration Pregabalin 150 mg 08/11/16 10:00 08/17/16 11:45 Lyrica - PO 150 mg BID SULEIMAN Administration Objective: Vital Signs Period Temp Pulse Resp BP Sys/Rubio Pulse Ox Last 24 Hr 97.7 F-98.3 F 69-78 18-20 123-143/80-94 97-97 Physical Exam: CBCD WBC 7.7 K/mm3 (4.0-10.0) 08/17/16 08:25 RBC 3.74 M/mm3 (4.00-5.60) L 08/17/16 08:25 Hgb 11.8 GM/dL (11.7-16.9) 08/17/16 08:25 Hct 35.5 % (35.4-49) 08/17/16 08:25 MCV 94.9 fl (80-96) 08/17/16 08:25 MCHC 33.1 g/dl (32.0-35.9) 08/17/16 08:25 RDW 13.7 % (11.9-15.9) 08/17/16 08:25 Plt Count 206 K/MM3 (134-434) 08/17/16 08:25 MPV 7.5 fl (7.5-11.1) 08/17/16 08:25 CMP Sodium 143 mmol/L (136-145) 08/17/16 08:25 Potassium 4.0 mmol/L (3.5-5.1) 08/17/16 08:25 Chloride 107 mmol/L (98-107) 08/17/16 08:25 Carbon Dioxide 29 mmol/L (21-32) 08/17/16 08:25 Anion Gap 7 (8-16) L 08/17/16 08:25 BUN 12 mg/dL (7-18) 08/17/16 08:25 Creatinine 0.7 mg/dL (0.7-1.3) 08/17/16 08:25 Creat Clearance w eGFR > 60 (>60) 08/17/16 08:25 Random Glucose 94 mg/dL (74-106) 08/17/16 08:25 Calcium 8.9 mg/dL (8.5-10.1) 08/17/16 08:25 Total Bilirubin 1.0 mg/dL (0.2-1.0) 08/17/16 08:25 AST 107 U/L (15-37) H 08/17/16 08:25 ALT 249 U/L (12-78) H D 08/17/16 08:25 Alkaline Phosphatase 287 U/L (45-117) H 08/17/16 08:25 Total Protein 6.4 g/dl (6.4-8.2) 08/17/16 08:25 Albumin 3.0 g/dl (3.4-5.0) L 08/17/16 08:25 CARDIAC ENZYMES Creatine Kinase Cancelled 08/13/16 06:00 Troponin I < 0.02 ng/ml (0.00-0.05) 08/13/16 22:15 Microbiology 08/11/16 08:25 Blood - Peripheral Venous Blood Culture - Final NO GROWTH AFTER 5 DAYS INCUBATION 08/11/16 08:37 Blood - Peripheral Venous Blood Culture - Final NO GROWTH AFTER 5 DAYS INCUBATION 08/11/16 11:30 Urine - Urine Clean Catch Urine Culture - Final NO GROWTH OBTAINED Assessment: This is a 76 year old male with PMHx of HTN, GERD, kidney stones, vertigo, and post-herpetic neuralgia who presented to the ED with epigastric pain and was admitted with acute cholecystitis. Plan: 1) ID: Sepsis 2/2 acute cholecystitis and cholangitis - Remains afebrile - WBC wnl - Discussed with ID, will d/c abx and dose Cefazolin prior to surgery - Appreciate ID consult 2) GI: Cholangitis, with residual cholecystitis after CBD stone extraction - Liver enzymes continue to trend down - For cholecystectomy tomorrow? F/u surgery consult 3) Cardiology: PSVT, NSVT - Echo showed normal LV/RV function, mild to mod mr, mild tr, mild AR, mild PAH - No events on tele overnight - Continue Toprol XL - Stress test with LVEF 74%. Small zone of inferobasal fixed defect compatible with diaphragmatic attenuation - Appreciate cardiology consult 4) F/E/N: - Monitor electrolytes - Sodium controlled diet 5) Prophylaxis: - Heparin 5,000u sq bid (hold prior to surgery) - OOB ambulating 6) Dispo: - Requires continued inpatient care CODE STATUS: FULL CODE Visit type - Emergency Visit Emergency Visit: Yes ED Registration Date: 08/11/16 Care time: The patient presented to the Emergency Department on the above date and was hospitalized for further evaluation of their emergent condition. - New Patient This patient is new to me today: Yes Date on this admission: 08/18/16 - Critical Care Critical Care patient: No
--- NOTE | 2016-08-17 14:24 | PN ---
Progress Note, Physician Chief Complaint: ID Day 7 antibiotics - Current Medication List Current Medications: Active Medications Acetaminophen (Tylenol Suppository -) 650 mg [place] Q6H PRN PRN Reason: FEVER OR PAIN Lactated Ringer's (Lactated Ringers Solution) 1,000 mls @ 125 mls/hr IV ASDIR [facility] Last Admin: 08/17/16 07:47 Dose: 125 mls/hr Piperacillin Sod/Tazobactam Sod (Zosyn 3.375gm Ivpb (Pre-Docked)) 50 mls @ 100 mls/hr IVPB Q6H-IV [facility] Last Admin: 08/17/16 08:46 Dose: 100 mls/hr Lisinopril (Prinivil) 5 mg PO DAILY [facility] Last Admin: 08/17/16 11:45 Dose: 5 mg Metoprolol Succinate (Toprol Xl -) 50 mg PO DAILY [facility] Last Admin: 08/17/16 11:46 Dose: 50 mg Ondansetron HCl (Zofran Injection) 4 mg IVPB Q6H PRN PRN Reason: NAUSEA Pantoprazole Sodium (Protonix -) 40 mg PO DAILY [facility] Last Admin: 08/17/16 11:46 Dose: 40 mg Pregabalin (Lyrica -) 150 mg PO BID [facility] Last Admin: 08/17/16 11:45 Dose: 150 mg - Objective Vital Signs: Vital Signs Temperature 97.9 F 08/17/16 07:37 Pulse Rate 72 08/17/16 07:37 Respiratory Rate 18 08/17/16 07:40 Blood Pressure 127/85 08/17/16 07:37 O2 Sat by Pulse Oximetry (%) 97 08/17/16 07:40 Constitutional: Yes: Well Nourished, No Distress Neck: Yes: WNL, Supple Cardiovascular: Yes: Regular Rate and Rhythm, S1, S2 Respiratory: Yes: WNL, Regular, CTA Bilaterally Gastrointestinal: Yes: WNL, Normal Bowel Sounds, Soft. No: Tenderness Edema: No Labs: CBC, BMP 08/17/16 08:25 08/17/16 08:25 INR, PTT INR 1.30 (0.82-1.09) H 08/13/16 05:35 Problem List - Problems (1) Acute cholecystitis due to biliary calculus Code(s): K80.00 - CALCULUS OF GALLBLADDER W ACUTE CHOLECYST W/O OBSTRUCTION (2) Cholangitis Code(s): K83.0 - CHOLANGITIS (3) Sepsis Code(s): A41.9 - SEPSIS, UNSPECIFIED ORGANISM Assessment/Plan Microbiology 08/11/16 11:30 Urine - Urine Clean Catch Urine Culture - Final NO GROWTH OBTAINED 08/11/16 08:37 Blood - Peripheral Venous Blood Culture - Final NO GROWTH AFTER 5 DAYS INCUBATION 08/11/16 08:25 Blood - Peripheral Venous Blood Culture - Final NO GROWTH AFTER 5 DAYS INCUBATION Laboratory Tests 08/17/16 08:25 WBC 7.7 Hgb 11.8 Hct 35.5 Plt Count 206 Assesment Cholangititis day 7 antibiotics/ Cholecystitis Plan Stop antibiotics now Dose of Cefazolin prior to surgery prophylactically Discussed Tish Shelton MD
--- NOTE | 2016-08-17 15:35 | SPA.PREOP ---
[id number] Surgeon: Joselito Tobar Consent: To be obtained after surgeon explains all risks, benefits and alternatives. Last Vital Signs Temp Pulse Resp BP Pulse Ox 98.2 F 80 18 120/74 97 08/17/16 14:34 08/17/16 14:34 08/17/16 14:34 08/17/16 14:34 08/17/16 07:40 Lab Results WBC 7.7 K/mm3 (4.0-10.0) 08/17/16 08:25 RBC 3.74 M/mm3 (4.00-5.60) L 08/17/16 08:25 Hgb 11.8 GM/dL (11.7-16.9) 08/17/16 08:25 Hct 35.5 % (35.4-49) 08/17/16 08:25 MCV 94.9 fl (80-96) 08/17/16 08:25 MCHC 33.1 g/dl (32.0-35.9) 08/17/16 08:25 RDW 13.7 % (11.9-15.9) 08/17/16 08:25 Plt Count 206 K/MM3 (134-434) 08/17/16 08:25 Sodium 143 mmol/L (136-145) 08/17/16 08:25 Potassium 4.0 mmol/L (3.5-5.1) 08/17/16 08:25 Chloride 107 mmol/L (98-107) 08/17/16 08:25 Carbon Dioxide 29 mmol/L (21-32) 08/17/16 08:25 Anion Gap 7 (8-16) L 08/17/16 08:25 BUN 12 mg/dL (7-18) 08/17/16 08:25 Creatinine 0.7 mg/dL (0.7-1.3) 08/17/16 08:25 Random Glucose 94 mg/dL (74-106) 08/17/16 08:25 Calcium 8.9 mg/dL (8.5-10.1) 08/17/16 08:25 Blood Type O POSITIVE 08/14/16 05:36 Antibody Screen Negative 08/14/16 05:36 INR 1.30 (0.82-1.09) H 08/13/16 05:35 Cardiology: Negative persantine stress test. Cleared for cholecystectomy. - IMAGING X-ray: Pending EKG: Pending - ASSESSMENT/PLAN <Nando Lindsay P - Last Filed: 08/17/16 15:37> - PRE-OP NOTE Dx: Planned Procedure: Surgeon: Consent: Obtained after surgeon explained all risks, benefits and alternatives. Opportunity for questions. Patient had none. Understood and signed without reservation. Last Vital Signs Temp Pulse Resp BP Pulse Ox 98.2 F 80 18 120/74 97 08/17/16 14:34 08/17/16 14:34 08/17/16 14:34 08/17/16 14:34 08/17/16 07:40 Lab Results WBC 7.7 K/mm3 (4.0-10.0) 08/17/16 08:25 RBC 3.74 M/mm3 (4.00-5.60) L 08/17/16 08:25 Hgb 11.8 GM/dL (11.7-16.9) 08/17/16 08:25 Hct 35.5 % (35.4-49) 08/17/16 08:25 MCV 94.9 fl (80-96) 08/17/16 08:25 MCHC 33.1 g/dl (32.0-35.9) 08/17/16 08:25 RDW 13.7 % (11.9-15.9) 08/17/16 08:25 Plt Count 206 K/MM3 (134-434) 08/17/16 08:25 Sodium 143 mmol/L (136-145) 08/17/16 08:25 Potassium 4.0 mmol/L (3.5-5.1) 08/17/16 08:25 Chloride 107 mmol/L (98-107) 08/17/16 08:25 Carbon Dioxide 29 mmol/L (21-32) 08/17/16 08:25 Anion Gap 7 (8-16) L 08/17/16 08:25 BUN 12 mg/dL (7-18) 08/17/16 08:25 Creatinine 0.7 mg/dL (0.7-1.3) 08/17/16 08:25 Random Glucose 94 mg/dL (74-106) 08/17/16 08:25 Calcium 8.9 mg/dL (8.5-10.1) 08/17/16 08:25 Blood Type O POSITIVE 08/14/16 05:36 Antibody Screen Negative 08/14/16 05:36 INR 1.30 (0.82-1.09) H 08/13/16 05:35 - IMAGING Chest X-ray: Report Reviewed, Image Reviewed - ASSESSMENT/PLAN 1. Make NPO after midnight except po meds 2. GI/DVT PPX 3. Medical optimization / clearance Surgery Attending Patient seen and examined. Cleared for proposed procedure Agree with GORAN Lindsay's assessment and plan of management. Risks, benefits,and alternatives to the procedure d/w patient. <Joselito Tobar - Last Filed: 08/17/16 18:29> Problem List - Problems (1) Acute cholecystitis due to biliary calculus Assessment/Plan: 1. Make NPO after breakfast 7am tomorrow except po meds 2. GI/DVT PPX 3. Medical optimization / clearance 4. CXR Code(s): K80.00 - CALCULUS OF GALLBLADDER W ACUTE CHOLECYST W/O OBSTRUCTION <Nando Lindsay - Last Filed: 08/17/16 15:37> Visit type - Case Type Case Type: ED Admission - Emergency Emergency Visit: Yes ED Registration Date: 08/11/16 Care time: The patient presented to the Emergency Department on the above date and was hospitalized for further evaluation of their emergent condition. - New patient This patient is new to me today: Yes Date on this admission: 08/17/16 <Nando Lindsay - Last Filed: 08/17/16 15:37>
--- NOTE | 2016-08-17 16:24 | PN ---
Progress Note (short form) - Note Progress Note: Nuclear stress test results reviewed. No ischemia, normal LVEF. Pt is in his optimal cardiac condition for the planned surgery, he may proceed at this point. would cont metoprolol at current dose throughout the perioperative period. Problem List - Problems (1) Acute cholecystitis due to biliary calculus Code(s): K80.00 - CALCULUS OF GALLBLADDER W ACUTE CHOLECYST W/O OBSTRUCTION (2) Preop cardiovascular exam Code(s): Z01.810 - ENCOUNTER FOR PREPROCEDURAL CARDIOVASCULAR EXAMINATION (3) Tachycardia Code(s): R00.0 - TACHYCARDIA, UNSPECIFIED (4) Abnormal EKG Code(s): R94.31 - ABNORMAL ELECTROCARDIOGRAM [ECG] [EKG] (5) Palpitations Code(s): R00.2 - PALPITATIONS
[2016-08-17] MEDS: HEPARIN NA (PORCINE) 5,000 UNITS/ML 1ML VIAL SQ SCH (21:47)
[2016-08-18] MEDS: LACTATED RINGERS SOLUTION 1,000 ML IV SCH ×3 (04:56→23:04)
[2016-08-18 07:30] LABS: MCH 32.2 pg (25.7-33.7); MCHC 33.6 g/dl (32.0-35.9); MEAN PLT VOLUME 7.9 fl (7.5-11.1); PLATELET COUNT 212 K/MM3 (134-434); RDW 13.6 % (11.9-15.9); WHITE BLOOD COUNT 6.8 K/mm3 (4.0-10.0)
[2016-08-18 07:40] LABS: ALBUMIN 2.8 g/dl (3.4-5.0); ANION GAP 6 (8-16); CALCIUM 8.8 mg/dL (8.5-10.1); CO2 28 mmol/L (21-32); GLUCOSE,RANDOM 90 mg/dL (74-106)
[2016-08-18 07:45] LABS: ALK PHOS 252 U/L (45-117); BILIRUBIN,TOTAL 0.8 mg/dL (0.2-1.0); CREATININE 0.6 mg/dL (0.7-1.3); SGOT/AST 69 U/L (15-37); SGPT/ALT 190 U/L (12-78)
[2016-08-18] MEDS: HEPARIN NA (PORCINE) 5,000 UNITS/ML 1ML VIAL SQ SCH ×2 (09:39→23:03)
[2016-08-18] MEDS: METOPROLOL SUCCINATE 50 MG TAB.SR.24H (FP) PO SCH (09:44)
[2016-08-18] MEDS: PANTOPRAZOLE 40 MG TABLET (FP) PO SCH (09:44)
[2016-08-18] MEDS: LISINOPRIL 5 MG TABLET (FP) PO SCH (09:44)
[2016-08-18] MEDS: PREGABALIN 75 MG CAPSULE PO SCH (09:44)
--- NOTE | 2016-08-18 10:23 | PN ---
Progress Note, Physician Chief Complaint: comfortable post op Denies CP or SOB Preop stress test was normal Denies palpitations now or overnight - Current Medication List Current Medications: Active Medications Acetaminophen (Tylenol Suppository -) 650 mg [place] Q6H PRN PRN Reason: FEVER OR PAIN Heparin Sodium (Porcine) (Heparin -) 5,000 unit SQ BID [facility] Last Admin: 08/18/16 09:39 Dose: Not Given Lactated Ringer's (Lactated Ringers Solution) 1,000 mls @ 125 mls/hr IV ASDIR [facility] Last Admin: 08/18/16 09:44 Dose: Not Given Lisinopril (Prinivil) 5 mg PO DAILY [facility] Last Admin: 08/18/16 09:44 Dose: 5 mg Metoprolol Succinate (Toprol Xl -) 50 mg PO DAILY [facility] Last Admin: 08/18/16 09:44 Dose: 50 mg Ondansetron HCl (Zofran Injection) 4 mg IVPB Q6H PRN PRN Reason: NAUSEA Pantoprazole Sodium (Protonix -) 40 mg PO DAILY [facility] Last Admin: 08/18/16 09:44 Dose: 40 mg - Objective Vital Signs: Vital Signs Temperature 98.7 F 08/18/16 05:50 Pulse Rate 67 08/18/16 05:50 Respiratory Rate 20 08/18/16 05:50 Blood Pressure 127/80 08/18/16 05:50 O2 Sat by Pulse Oximetry (%) 97 08/17/16 21:00 Constitutional: Yes: No Distress Cardiovascular: Yes: Regular Rate and Rhythm Respiratory: Yes: CTA Bilaterally Gastrointestinal: Yes: Soft Edema: No Neurological: Yes: Alert, Oriented Labs: CBC, BMP 08/18/16 06:00 08/18/16 06:00 INR, PTT INR 1.30 (0.82-1.09) H 08/13/16 05:35 Assessment/Plan Assessment/Plan 76 year old man with a history of GERD, PUD, vertigo, admitted with abdominal pain and chills and found to have cholelithiasis with choledocholelithiasis s/p ERCP with stone removal, PSVT and NSVT s/p cholecystectomy. IMP: Acute cholecystitis s/p cholecystectomy PSVT NSVT Hypokalemia REC: K repleted Arrhythmias and palpitations have improved on Toprol XL 50mg daily. Echo showed normal LV/RV function, mild to mod mr, mild tr, mild AR, mild PAH, preop stress MIBI with no ischemi Cont Toprol XL 50mg daily
--- NOTE | 2016-08-18 14:07 | PN ---
Physical Exam: SUBJECTIVE: Patient seen and examined sitting up in bed, patient states feeling better, denies pain, nausea, vomiting, diarrhea, SOB, difficulty breathing, or chest pain. NPO after midnight for cholecystectomy procedure planned for 3pm today. OBJECTIVE: Vital Signs Period Temp Pulse Resp BP Sys/Rubio Pulse Ox Last 24 Hr 98.2 F-98.9 F 67-91 18-20 119-127/67-80 97-97 GENERAL: The patient is awake, alert, and fully oriented, in no acute distress. LUNGS: Breath sounds equal, clear to auscultation bilaterally, no wheezes, no crackles, no accessory muscle use. HEART: Regular rate and rhythm, S1, S2. ABDOMEN: Soft, nontender, nondistended, normoactive bowel sounds, no guarding, no rebound. EXTREMITIES: 2+ pulses, warm, well-perfused, no edema. NEUROLOGICAL: Cranial nerves II through XII grossly intact. Normal speech, gait not observed. PSYCH: Normal mood, normal affect. SKIN: Warm, dry, normal turgor, healed rash in dermatomal pattern to the right abdomen extending to back. CBCD WBC 6.8 K/mm3 (4.0-10.0) 08/18/16 06:00 RBC 3.56 M/mm3 (4.00-5.60) L 08/18/16 06:00 Hgb 11.5 GM/dL (11.7-16.9) L 08/18/16 06:00 Hct 34.2 % (35.4-49) L 08/18/16 06:00 MCV 96.0 fl (80-96) 08/18/16 06:00 MCHC 33.6 g/dl (32.0-35.9) 08/18/16 06:00 RDW 13.6 % (11.9-15.9) 08/18/16 06:00 Plt Count 212 K/MM3 (134-434) 08/18/16 06:00 MPV 7.9 fl (7.5-11.1) 08/18/16 06:00 CMP Sodium 141 mmol/L (136-145) 08/18/16 06:00 Potassium 4.2 mmol/L (3.5-5.1) 08/18/16 06:00 Chloride 107 mmol/L (98-107) 08/18/16 06:00 Carbon Dioxide 28 mmol/L (21-32) 08/18/16 06:00 Anion Gap 6 (8-16) L 08/18/16 06:00 BUN 9 mg/dL (7-18) D 08/18/16 06:00 Creatinine 0.6 mg/dL (0.7-1.3) L 08/18/16 06:00 Creat Clearance w eGFR > 60 (>60) 08/18/16 06:00 Random Glucose 90 mg/dL (74-106) 08/18/16 06:00 Calcium 8.8 mg/dL (8.5-10.1) 08/18/16 06:00 Total Bilirubin 0.8 mg/dL (0.2-1.0) 08/18/16 06:00 AST 69 U/L (15-37) H D 08/18/16 06:00 ALT 190 U/L (12-78) H D 08/18/16 06:00 Alkaline Phosphatase 252 U/L (45-117) H 08/18/16 06:00 Total Protein 6.0 g/dl (6.4-8.2) L 08/18/16 06:00 Albumin 2.8 g/dl (3.4-5.0) L 08/18/16 06:00 CARDIAC ENZYMES Creatine Kinase Cancelled 08/13/16 06:00 Troponin I < 0.02 ng/ml (0.00-0.05) 08/13/16 22:15 08/13/16 08/13/16 08/13/16 05:35 12:50 22:15 Troponin I < 0.02 < 0.02 < 0.02 Laboratory Results - last 24 hr 08/18/16 08/18/16 06:00 06:00 WBC 6.8 RBC 3.56 L Hgb 11.5 L Hct 34.2 L MCV 96.0 MCHC 33.6 RDW 13.6 Plt Count 212 MPV 7.9 Sodium 141 Potassium 4.2 Chloride 107 Carbon Dioxide 28 Anion Gap 6 L BUN 9 D Creatinine 0.6 L Creat Clearance w eGFR > 60 Random Glucose 90 Calcium 8.8 Total Bilirubin 0.8 AST 69 H D ALT 190 H D Alkaline Phosphatase 252 H Total Protein 6.0 L Albumin 2.8 L Active Medications Generic Name Dose Route Start Last Admin Trade Name Freq PRN Reason Stop Dose Admin Acetaminophen 650 mg 08/11/16 11:10 Tylenol Suppository - OR Q6H PRN FEVER OR PAIN Heparin Sodium (Porcine) 5,000 unit 08/17/16 22:00 08/18/16 09:39 Heparin - SQ Not Given BID SULEIMAN Lactated Ringer's 1,000 mls @ 125 mls/hr 08/13/16 08:00 08/18/16 09:44 Lactated Ringers Solution IV Not Given ASDIR SULEIMAN Lisinopril 5 mg 08/11/16 10:00 08/18/16 09:44 Prinivil PO 5 mg DAILY [facility] Administration Metoprolol Succinate 50 mg 08/14/16 10:00 08/18/16 09:44 Toprol Xl - PO 50 mg DAILY [facility] Administration Ondansetron HCl 4 mg 08/11/16 01:25 Zofran Injection IVPB Q6H PRN NAUSEA Pantoprazole Sodium 40 mg 08/11/16 10:00 08/18/16 09:44 Protonix - PO 40 mg DAILY [facility] Administration Microbiology 08/11/16 11:30 Urine - Urine Clean Catch Urine Culture - Final NO GROWTH OBTAINED 08/11/16 08:37 Blood - Peripheral Venous Blood Culture - Final NO GROWTH AFTER 5 DAYS INCUBATION 08/11/16 08:25 Blood - Peripheral Venous Blood Culture - Final NO GROWTH AFTER 5 DAYS INCUBATION Imaging 08/17/16 - CXR shows no acute disease. 08/17/16 - Preop Stress test was normal: no iscemia, normal LVEF 74%. Small zone of inferobasilar fixed defect compatible with diaphragmatic attenuation. ASSESSMENT: This is a 76 year old man with a PMHx of HTN, GERD, kidney stones, vertigo, post herpetic neuralgia, who presented to the ED with epigastric pain, was admitted with acute cholecystitis and cholangitis. PLAN: ID: Sepsis secondary to acute cholecystitis and cholangitis - Cholangitis - residual cholecystitis s/p CBD stone extraction - Cholecystectomy - exploratory lap, possible open, Surgery today. - Liver enzymes elevated and trending down - Afebrile, no leukocytosis - Cefazolin prior to surgery prophylactically as per ID - Appreciate GI consult - Appreciate ID consult - Appreciate surgery consult Cardiac: PSVT/NSVT - ECHO - showed normal LV/RV function; mild to moderate MR, mild TR, mild AR, mild PAH - Nuclear stress with no ischemia, normal LVEF - Troponin negative x 3 - Continue metoprolol throughout perioperative period - Appreciate cardiology consult Hypertension - Continue lisinopril 5mg daily - Continue metoprolol 50 mg daily GI: GERD - Continue protonix 40mg daily - Zofran as needed for nausea Post herpetic neuralgia - Continue Lyrica F/E/N: - NPO prior to surgery - Monitor electrolytes- replete as needed. - IVF - Lactated Ringers at 125cc/hour Prophylaxis: - SCDs - OOB ambulating - Hold heparin prior to surgery Dispo: Requires continued inpatient care. CODE STATUS: FULL CODE Visit type - Emergency Visit Emergency Visit: Yes ED Registration Date: 08/11/16 Care time: The patient presented to the Emergency Department on the above date and was hospitalized for further evaluation of their emergent condition. - New Patient This patient is new to me today: No - Critical Care Critical Care patient: No
[2016-08-18] MEDS ORDERED: BUPIVACAINE HCL/PF 0.5% (5MG/ML) 10 ML VIAL ONE (14:24)
--- NOTE | 2016-08-18 16:06 | PN ---
Progress Note, Physician History of Present Illness: No c/o abdominal pain No N/V No c/o fever/ chills - Current Medication List Current Medications: Active Medications Acetaminophen (Tylenol Suppository -) 650 mg [place] Q6H PRN PRN Reason: FEVER OR PAIN Heparin Sodium (Porcine) (Heparin -) 5,000 unit SQ BID [facility] Last Admin: 08/18/16 09:39 Dose: Not Given Lactated Ringer's (Lactated Ringers Solution) 1,000 mls @ 125 mls/hr IV ASDIR [facility] Last Admin: 08/18/16 09:44 Dose: Not Given Lisinopril (Prinivil) 5 mg PO DAILY [facility] Last Admin: 08/18/16 09:44 Dose: 5 mg Metoprolol Succinate (Toprol Xl -) 50 mg PO DAILY [facility] Last Admin: 08/18/16 09:44 Dose: 50 mg Ondansetron HCl (Zofran Injection) 4 mg IVPB Q6H PRN PRN Reason: NAUSEA Pantoprazole Sodium (Protonix -) 40 mg PO DAILY [facility] Last Admin: 08/18/16 09:44 Dose: 40 mg - Objective Vital Signs: Vital Signs Temperature 98.2 F 08/18/16 14:19 Pulse Rate 75 08/18/16 14:19 Respiratory Rate 20 08/18/16 14:19 Blood Pressure 137/82 08/18/16 14:19 O2 Sat by Pulse Oximetry (%) 97 08/18/16 09:00 Constitutional: Yes: No Distress Eyes: Yes: Conjunctiva Clear Cardiovascular: Yes: Regular Rate and Rhythm, S1, S2 Respiratory: Yes: CTA Bilaterally Gastrointestinal: Yes: Soft. No: Tenderness Edema: No Labs: CBC, BMP 08/18/16 06:00 08/18/16 06:00 INR, PTT INR 1.30 (0.82-1.09) H 08/13/16 05:35 Assessment/Plan S/P ERCP/sphincterotomy/ stone extraction Cholangitis-resolved Elevated LFTs- improving For cholecystectomy Prophylactic cefazolin
[2016-08-18] MEDS: CEFAZOLIN 1 GM in DEXTROSE 5%-WATER - 50 ML IVPB SCH (19:02)
[2016-08-18] MEDS ORDERED: PROPOFOL 20 ML ONE (19:26)
[2016-08-18] MEDS ORDERED: ROCURONIUM BROMIDE 50 MG/5 ML VIAL ONE (19:26)
[2016-08-18] MEDS ORDERED: ceFAZolin SODIUM 1 GM VIAL ONE (19:43)
[2016-08-18] MEDS ORDERED: ceFAZolin SODIUM 1 GM VIAL IVPB ONE ×2 (19:45)
[2016-08-18] MEDS ORDERED: BUPIVACAINE HCL/PF 0.5% (5MG/ML) 10 ML VIAL IJ ONE ×3 (19:50)
[2016-08-18] MEDS ORDERED: METOPROLOL TARTRATE 5 MG/5 ML VIAL ONE (19:58)
[2016-08-18] MEDS ORDERED: DEXAMETHASONE SOD PHOSPHATE 4 MG/1 ML VIAL ONE (20:11)
[2016-08-18] MEDS ORDERED: ePHEDrine SULFATE 50 MG/1 ML AMPULE ONE (20:16)
--- NOTE | 2016-08-18 20:50 | OP ---
Operative Note - Note: Operative Date: 08/18/16 Pre-Operative Diagnosis: Ascending cholangitis with cholelithiasis and choledocholithiasis Operation: Laparoscopic cholecystectomy Findings: gallbladder with possible stones and prominent CBD Post-Operative Diagnosis: Same as Pre-op Surgeon: Joselito Tobar [employer] Vessel Operator: Isabella Gayle Anesthesia: General Specimens Removed: gallbladder Estimated Blood Loss (mls): 2 Operative Report Dictated: Yes
[2016-08-18] MEDS ORDERED: LABETALOL HCL 5 MG/1 ML (100MG/20 ML VIAL) ONE (20:53)
[2016-08-18] MEDS ORDERED: OXYCODONE/APAP 5/325MG COMBO TABLET PO PRN (21:01)
[2016-08-18] MEDS ORDERED: oxyCODONE HCL 5 MG TABLET PO PRN (21:04)
[2016-08-18] MEDS ORDERED: ACETAMINOPHEN 325 MG TABLET (FP) PO PRN (21:04)
[2016-08-18] MEDS ORDERED: ONDANSETRON 4 MG/2 ML VIAL IVPB PRN (21:34)
[2016-08-18] MEDS ORDERED: ACETAMINOPHEN 650 MG SUPP.RECT PR PRN (21:34)
[2016-08-19] MEDS: CEFAZOLIN 1 GM in DEXTROSE 5%-WATER - 50 ML IVPB SCH ×2 (01:49→10:01)
[2016-08-19 05:39] VITALS: TEMP 98.3
[2016-08-19] MEDS: LACTATED RINGERS SOLUTION 1,000 ML IV SCH (06:05)
[2016-08-19 07:21] LABS: MCH 31.7 pg (25.7-33.7); MCHC 33.3 g/dl (32.0-35.9); MEAN CELL VOLUME 95.1 fl (80-96); MEAN PLT VOLUME 7.8 fl (7.5-11.1); PLATELET COUNT 212 K/MM3 (134-434); RDW 13.9 % (11.9-15.9); WHITE BLOOD COUNT 8.8 K/mm3 (4.0-10.0)
[2016-08-19 07:49] LABS: ALBUMIN 2.7 g/dl (3.4-5.0); ANION GAP 7 (8-16); BILIRUBIN,TOTAL 0.8 mg/dL (0.2-1.0); CALCIUM 8.6 mg/dL (8.5-10.1); CO2 28 mmol/L (21-32); CREATININE 0.7 mg/dL (0.7-1.3); GLUCOSE,RANDOM 117 mg/dL (74-106); SGOT/AST 52 U/L (15-37); SGPT/ALT 147 U/L (12-78)
[2016-08-19 07:50] LABS: ALK PHOS 234 U/L (45-117); TOT PROT 5.9 g/dl (6.4-8.2)
--- NOTE | 2016-08-19 09:26 | PN ---
Progress Note, Physician Chief Complaint: see corrected note from 08/18 (addendum) Patient is post op day #1 today after lap bird Hemodynamically stable. He states he felt some abdominal and epigastric tightness last evening after surgery that radiated upwards across the chest and jaw Now mostly resolved Denies [place], palps. - Current Medication List Current Medications: Active Medications Acetaminophen (Tylenol -) 650 mg PO Q6H PRN PRN Reason: PAIN Last Admin: 08/19/16 01:48 Dose: 650 mg Acetaminophen (Tylenol Suppository -) 650 mg [place] Q6H PRN PRN Reason: FEVER OR PAIN Heparin Sodium (Porcine) (Heparin -) 5,000 unit SQ BID [facility] Last Admin: 08/18/16 23:03 Dose: Not Given Cefazolin Sodium 1 gm/ (Dextrose) 50 mls @ 100 mls/hr IVPB Q8H-IV [facility] Stop: 08/19/16 17:59 Last Admin: 08/19/16 01:49 Dose: 100 mls/hr Lactated Ringer's (Lactated Ringers Solution) 1,000 mls @ 125 mls/hr IV ASDIR [facility] Last Admin: 08/19/16 06:05 Dose: 125 mls/hr Lisinopril (Prinivil) 5 mg PO DAILY [facility] Metoprolol Succinate (Toprol Xl -) 50 mg PO DAILY [facility] Last Admin: 08/18/16 09:44 Dose: 50 mg Ondansetron HCl (Zofran Injection) 4 mg IVPB Q6H PRN PRN Reason: NAUSEA Oxycodone HCl (Roxicodone -) 10 mg PO Q6H PRN PRN Reason: PAIN LEVEL 6-10 Last Admin: 08/19/16 01:46 Dose: 10 mg Pantoprazole Sodium (Protonix -) 40 mg PO DAILY [facility] - Objective Vital Signs: Vital Signs Temperature 98.3 F 08/19/16 05:37 Pulse Rate 70 08/19/16 05:37 Respiratory Rate 20 08/19/16 05:37 Blood Pressure 117/66 08/19/16 05:37 O2 Sat by Pulse Oximetry (%) 100 08/18/16 22:40 Constitutional: Yes: No Distress, Calm Cardiovascular: Yes: Regular Rate and Rhythm Respiratory: Yes: CTA Bilaterally Gastrointestinal: Yes: Soft (no rebound or guarding tenderness) Edema: No Neurological: Yes: Alert, Oriented ...Motor Strength: WNL Labs: CBC, BMP 08/19/16 06:00 08/19/16 06:00 INR, PTT INR 1.30 (0.82-1.09) H 08/13/16 05:35 Assessment/Plan Acute cholecystitis s/p lap cholecystectomy POD # 1 today (see addendum to yesterday's note) PSVT NSVT Normal nuclear stress preop. REC: Continue Toprol (h/o PSVT). Keep K+ >4 and Mg2+ >2. Suspect the epigastric pain and chest tightness he felt last evening was likely due to post op pain after lap bird. Will check Cardiac enzymes x2 and repeat ECG today, doubt cardiac.
[2016-08-19] MEDS: HEPARIN NA (PORCINE) 5,000 UNITS/ML 1ML VIAL SQ SCH (09:58)
[2016-08-19] MEDS: METOPROLOL SUCCINATE 50 MG TAB.SR.24H (FP) PO SCH (09:59)
[2016-08-19] MEDS ORDERED: LISINOPRIL 5 MG TABLET (FP) PO SCH (10:00)
[2016-08-19] MEDS ORDERED: PANTOPRAZOLE 40 MG TABLET (FP) PO SCH (10:00)
[2016-08-19 10:13] LABS: TROPONIN I < 0.02 ng/ml (0.00-0.05)
[2016-08-19] MEDS ORDERED: PREGABALIN 75 MG CAPSULE PO SCH (10:15)
--- NOTE | 2016-08-19 11:24 | PN ---
Progress Note (short form) - Note Progress Note: Subjective: The patient was seen and examined at the bedside, he is post op day #1 from [facility]. He reports subclavical pain when he sits up and that is relieved when he lays down. Discussed with GORAN Mason, who reports may be post op pain Cardiac enzymes, negative this AM F/u EKG Current Medications Generic Name Dose Route Start Last Admin Trade Name Freq PRN Reason Stop Dose Admin Acetaminophen 650 mg 08/18/16 21:04 08/19/16 01:48 Tylenol - PO 650 mg Q6H PRN Administration PAIN Acetaminophen 650 mg 08/18/16 21:34 Tylenol Suppository - OH Q6H PRN FEVER OR PAIN Heparin Sodium (Porcine) 5,000 unit 08/17/16 22:00 08/19/16 09:58 Heparin - SQ 5,000 unit BID SULEIMAN Administration Cefazolin Sodium 1 gm/ 50 mls @ 100 mls/hr 08/18/16 18:00 08/19/16 10:01 Dextrose IVPB 08/19/16 17:59 100 mls/hr Q8H-IV SULEIMAN Administration Lactated Ringer's 1,000 mls @ 125 mls/hr 08/18/16 21:34 08/19/16 06:05 Lactated Ringers Solution IV 125 mls/hr ASDIR SULEIMAN Administration Lisinopril 5 mg 08/19/16 10:00 08/19/16 09:59 Prinivil PO 5 mg DAILY SULEIMAN Administration Metoprolol Succinate 50 mg 08/14/16 10:00 08/19/16 09:59 Toprol Xl - PO 50 mg DAILY SULEIMAN Administration Ondansetron HCl 4 mg 08/18/16 21:34 Zofran Injection IVPB Q6H PRN NAUSEA Oxycodone HCl 10 mg 08/18/16 21:04 08/19/16 01:46 Roxicodone - PO 10 mg Q6H PRN Administration PAIN LEVEL 6-10 Pantoprazole Sodium 40 mg 08/19/16 10:00 08/19/16 09:59 Protonix - PO 40 mg DAILY SULEIMAN Administration Pregabalin 150 mg 08/19/16 10:15 Lyrica - PO TID SULEIMAN Objective: Vital Signs Period Temp Pulse Resp BP Sys/Rubio Pulse Ox Last 24 Hr 98.0 F-98.5 F 61-113 16-22 117-158/66-105 100-100 Physical Exam: General: NAD, A&Ox3 Lungs: CTA bilaterally Heart: RRR, S1S2 Abd: Lap sites x4, c/d/i. Soft, mild tenderness. Normoactive bowel sounds Ext: Warm, well-perfused. 2+ DP/PT bilaterally. SCDs bilaterally Neuro: CN 2-12 intact CBCD WBC 8.8 K/mm3 (4.0-10.0) 08/19/16 06:00 RBC 3.50 M/mm3 (4.00-5.60) L 08/19/16 06:00 Hgb 11.1 GM/dL (11.7-16.9) L 08/19/16 06:00 Hct 33.3 % (35.4-49) L 08/19/16 06:00 MCV 95.1 fl (80-96) 08/19/16 06:00 MCHC 33.3 g/dl (32.0-35.9) 08/19/16 06:00 RDW 13.9 % (11.9-15.9) 08/19/16 06:00 Plt Count 212 K/MM3 (134-434) 08/19/16 06:00 MPV 7.8 fl (7.5-11.1) 08/19/16 06:00 CMP Sodium 139 mmol/L (136-145) 08/19/16 06:00 Potassium 4.3 mmol/L (3.5-5.1) 08/19/16 06:00 Chloride 104 mmol/L (98-107) 08/19/16 06:00 Carbon Dioxide 28 mmol/L (21-32) 08/19/16 06:00 Anion Gap 7 (8-16) L 08/19/16 06:00 BUN 11 mg/dL (7-18) D 08/19/16 06:00 Creatinine 0.7 mg/dL (0.7-1.3) 08/19/16 06:00 Creat Clearance w eGFR > 60 (>60) 08/19/16 06:00 Random Glucose 117 mg/dL (74-106) H D 08/19/16 06:00 Calcium 8.6 mg/dL (8.5-10.1) 08/19/16 06:00 Total Bilirubin 0.8 mg/dL (0.2-1.0) 08/19/16 06:00 AST 52 U/L (15-37) H D 08/19/16 06:00 ALT 147 U/L (12-78) H D 08/19/16 06:00 Alkaline Phosphatase 234 U/L (45-117) H 08/19/16 06:00 Total Protein 5.9 g/dl (6.4-8.2) L 08/19/16 06:00 Albumin 2.7 g/dl (3.4-5.0) L 08/19/16 06:00 CARDIAC ENZYMES Creatine Kinase 37 IU/L (39-308) L 08/19/16 06:00 Troponin I < 0.02 ng/ml (0.00-0.05) 08/19/16 06:00 Microbiology 08/11/16 08:25 Blood - Peripheral Venous Blood Culture - Final NO GROWTH AFTER 5 DAYS INCUBATION 08/11/16 08:37 Blood - Peripheral Venous Blood Culture - Final NO GROWTH AFTER 5 DAYS INCUBATION 08/11/16 11:30 Urine - Urine Clean Catch Urine Culture - Final NO GROWTH OBTAINED Assessment: This is a 76 year old male with PMHx of HTN, GERD, kidney stones, vertigo, and post-herpetic neuralgia who presented to the ED with epigastric pain and was admitted with acute cholecystitis. Plan: 1) ID: Sepsis 2/2 acute cholecystitis and cholangitis - Remains afebrile - WBC wnl - Discussed with ID, will d/c abx and dose Cefazolin prior to surgery - Appreciate ID consult 2) GI: Cholangitis, with residual cholecystitis after CBD stone extraction - Liver enzymes continue to trend down - For cholecystectomy tomorrow? F/u surgery consult 3) Cardiology: PSVT, NSVT - Echo showed normal LV/RV function, mild to mod mr, mild tr, mild AR, mild PAH - No events on tele overnight - Continue Toprol XL - Stress test with LVEF 74%. Small zone of inferobasal fixed defect compatible with diaphragmatic attenuation - Appreciate cardiology consult 4) F/E/N: - Monitor electrolytes - Advance diet, discussed with surgery, will give low fat/cholesterol diet 5) Prophylaxis: - OOB ambulating 6) Dispo: - Requires continued inpatient care CODE STATUS: FULL CODE Visit type - Emergency Visit Emergency Visit: Yes ED Registration Date: 08/11/16 Care time: The patient presented to the Emergency Department on the above date and was hospitalized for further evaluation of their emergent condition. - New Patient This patient is new to me today: No - Critical Care Critical Care patient: No
--- NOTE | 2016-08-19 11:51 | PN ---
Progress Note (short form) - Note Progress Note: POD#1 Pt without nausea or emesis, he is having intermittent pain in his upper shoulder left > right. Tolerated clears and has passed flatus. Mostly, he is still having pain from his resolving shigles infection to his RUQ. Voiding on his own. Vital Signs Period Temp Pulse Resp BP Sys/Rubio Pulse Ox Last 24 Hr 98.0 F-98.5 F 61-113 16-22 117-158/66-105 100-100 PE: GEN: A&0x3, NAD ABD: soft, non-distended, inc tenderness. Inc c/d/i with dermabd. No erythema, or ecchymosis noted. LE: Scd in place. No calf tenderness. CBC, BMP 02/08/17 06:00 02/08/17 06:00 Laboratory Tests 02//17 06:00 Troponin I < 0.02 Problem List - Problems (1) S/P cholecystectomy Assessment/Plan: POD#1 after GB removal, doing well. Spoke with the medical team and diet to be advance to low-fat diet. Medications as per medical team. Follow-up with Dr. Tobar as an outpt in one week, discharge care instructions completed. Code(s): Z90.49 - ACQUIRED ABSENCE OF OTHER SPECIFIED PARTS OF DIGESTIVE TRACT
--- NOTE | 2016-08-19 12:11 | SURG ---
Surgery Financial Investment Adviser Note Financial Investment Adviser: Isabella Gayle PA-C Date of Service: 08/18/16 Diagnosis: Ascending cholangitis with cholelithiasis and choledocholithiasis Procedure: Laparoscopic cholecystectomy I was present for the entirety of the operative procedure. For further detail, please refer to operative report. Visit type - Case Type Case Type: ED Admission - Emergency Emergency Visit: Yes ED Registration Date: 08/11/16 Care time: The patient presented to the Emergency Department on the above date and was hospitalized for further evaluation of their emergent condition. - New patient This patient is new to me today: No - Critical Care Critical Care patient: No
[2016-08-19 13:09] LABS: TROPONIN I < 0.02 ng/ml (0.00-0.05)
--- NOTE | 2016-08-19 13:41 | DS ---
[id number] Rate 20 08/19/16 05:37 Blood Pressure 117/66 08/19/16 05:37 O2 Sat by Pulse Oximetry (%) 100 08/18/16 22:40 Findings/Remarks: Physical Exam: General: NAD, A&Ox3 Lungs: CTA bilaterally Heart: RRR, S1S2 Abd: Lap sites x4, c/d/i. Soft, mild tenderness. Normoactive bowel sounds Ext: Warm, well-perfused. 2+ DP/PT bilaterally. SCDs bilaterally Neuro: CN 2-12 intact Labs: CBC, BMP 08/19/16 06:00 08/19/16 06:00 Discharge Summary Reason For Visit: ACUTE CHOLECYSTITIS DUE TO BILIARY CALCULUS Current Active Problems Abnormal EKG (Acute) Acute cholecystitis due to biliary calculus (Acute) Cholangitis (Acute) Palpitations (Acute) Preop cardiovascular exam (Acute) S/P cholecystectomy (Acute) Sepsis (Acute) Tachycardia (Acute) Hospital Course: This is a 76 year old male with PMHx of HTN, GERD, kidney stones, vertigo, and post-herpetic neuralgia who presented to the ED with epigastric pain and was admitted with acute cholecystitis. Plan: 1) ID: Sepsis 2/2 acute cholecystitis and cholangitis - Remains afebrile - WBC wnl - Completed course of abx - Received cefazolin prior to lap bird - Appreciate ID consult 2) GI: Cholangitis, with residual cholecystitis after CBD stone extraction - Liver enzymes continue to trend down - S/p lap bird, tolerating diet well 3) Cardiology: PSVT, NSVT - Echo showed normal LV/RV function, mild to mod mr, mild tr, mild AR, mild PAH - No events on tele overnight - Continue Toprol XL - Stress test with LVEF 74%. Small zone of inferobasal fixed defect compatible with diaphragmatic attenuation - Appreciate cardiology consult 4) F/E/N: - Monitor electrolytes - Tolerating low fat/cholesterol diet The patient was discharged and instructed to follow-up with surgery, pcp, and GI within 1 week. Please return to the ED with new, persistent, or worsening symptoms. This discharge took 45 minutes to complete. Condition: Improved - Instructions Diet, Activity, Other Instructions: Dr Tobar Discharge Instructions Dear CHAPARRO DONOVAN, Post Operative Instructions Physical activity Resume your normal everyday activity as tolerated no heavy lifting or exercise until seen by your surgeon. You may walk unlimited laura of and climb stairs. You may resume driving the car when you feel safe and comfortable behind the wheel. Wound care If you have a bandage, leave it on, and keep dry for 48-72 hours. After that time discard the outer bandage. If there are tapes on the skin under the outer bandage, leave them in place. They will peel off in the next 7 to 10 days. Do Not Peel them off. You may shower the day after surgery. If there are tapes present on the skin, you may shower over them. Diet low fat diet. Drink 6 to 8 glasses of liquid each day. This will assist in keeping your bowels are regular. Pain management You may take Tylenol or acetaminophen or Ibuprofen (for example, Motrin, Advil etc.) Any pain prescription medication ordered should be taken as prescribed for moderate to severe pain. Call Dr. Tobar for any of the following: Severe pain not relieved by medication Fever of 101 or higher Excessive bleeding or drainage on dressing Inability to urinate Call the office at [phone] for an appointment in seven days. Referrals: Joselito Tobar MD [Staff Physician] - (Please follow-up with Dr. Tobar within 2-3 days) James Cordova MD [Primary Care Provider] - 1 Week Bianka Sanford MD [Staff Physician] - 1 Week Disposition: HOME - Home Medications Comprehensive Discharge Medication List: Ambulatory Orders Omeprazole [Prilosec] 40 mg PO DAILY 12/03/15 Pregabalin [Lyrica -] 150 mg PO TID 08/11/16 Acetaminophen [Tylenol .Regular Strength -] 650 mg PO Q6H PRN #0 tablet Lisinopril [Prinivil] 5 mg PO DAILY #30 tablet 08/19/16 Metoprolol Succinate [Toprol XL -] 50 mg PO DAILY #30 tab.sr.24h 08/19/16 Oxycodone HCl [Roxicodone -] 10 mg PO Q6H PRN #30 tablet MDD 40mg 08/19/16 This patient is new to me today: No Emergency Visit: Yes ED Registration Date: 08/11/16 Care time: The patient presented to the Emergency Department on the above date and was hospitalized for further evaluation of their emergent condition. Critical Care patient: No - Discharge Referral Referred to [facility] No
--- NOTE | 2016-08-19 13:52 | EKG ---
Test Reason : Blood Pressure : / mmHG Vent. Rate : 067 BPM Atrial Rate : 067 BPM P-R Int : 144 ms QRS Dur : 084 ms QT Int : 414 ms P-R-T Axes : 042 023 052 degrees QTc Int : 437 ms NORMAL SINUS RHYTHM NORMAL ECG WHEN COMPARED WITH ECG OF 13-AUG-2016 09:04, ST NO LONGER DEPRESSED IN ANTERIOR LEADS Confirmed by DAMIAN TOMAS MD ([id number]) on 08/19/2016 1:52:06 PM Referred By: Yuriy WEEKS Confirmed By:DAMIAN TOMAS MD
--- NOTE | 2016-08-19 14:02 | PN ---
Progress Note (short form) - Note Progress Note: Anesthesia Post op Pt seen and examined S:alert and awake O: Vital Signs Temperature 98.3 F 08/19/16 05:37 Pulse Rate 70 08/19/16 05:37 Respiratory Rate 20 08/19/16 05:37 Blood Pressure 117/66 08/19/16 05:37 O2 Sat by Pulse Oximetry (%) 100 08/18/16 22:40 CBC, BMP 08/19/16 06:00 08/19/16 06:00 A/P: Current Active Problems Abnormal EKG (Acute) Acute cholecystitis due to biliary calculus (Acute) Cholangitis (Acute) Palpitations (Acute) Preop cardiovascular exam (Acute) S/P cholecystectomy (Acute) Sepsis (Acute) Tachycardia (Acute) s/p lap bird Doing well post op Continue current care Tima Garcia MD
[2016-08-19 14:27] VITALS: BP 121/63; PULSE 74
--- NOTE | 2016-08-19 16:13 | OP ---
DATE OF OPERATION: 08/18/2016 PROCEDURE: Laparoscopic cholecystectomy. PREOPERATIVE DIAGNOSIS: Ascending cholangitis with cholelithiasis and choledocholithiasis. POSTOPERATIVE DIAGNOSIS: Ascending cholangitis with cholelithiasis and choledocholithiasis. SURGEON: Joselito Tobar MD COMMERCIAL CONSTRUCTION ESTIMATOR: GORAN Contreras ANESTHESIA: General endotracheal. FINDINGS AND PROCEDURE: This is a 76-year-old male who presented with a 1-day history of epigastric and right upper quadrant abdominal pain radiating to the back, associated with elevated white blood cell count and abnormal liver function tests. Preoperative ultrasound revealed a gallbladder with gallstones and dilated common duct. The patient was admitted and treated for ascending cholangitis with antibiotics and IV fluids and subsequent MRCP revealed choledocholithiasis. The patient underwent ERCP with stone extraction and sphincterotomy. Patient, however, at the time went into supraventricular tachycardia, prompting further cardiac workup, delaying the proposed cholecystectomy. After a negative stress test, the patient was then scheduled for removal of the gallbladder and consent was obtained after discussing the risks, benefits and alternatives to the procedure. Patient was brought to the operating room and placed in supine position. General endotracheal anesthesia was administered. The abdomen was prepped and draped in the usual sterile fashion. Using 0.5% Marcaine, local anesthesia was administered to the proposed incision sites. A 5-mm incision was made over the umbilicus and the peritoneal cavity was entered using the Veress needle technique until pneumoperitoneum was established. A 5-mm scope was inserted into an optical port to enter the peritoneal cavity. The peritoneal cavity was carefully inspected and was noted to be free of any inadvertent injury. The patient was then placed in reverse Trendelenburg, left side down position. The 12-mm port was inserted at the subxiphoid region and two 5-mm ports were inserted at the right subcostal margin about 5 cm away from each other. The gallbladder fundus was identified and was noted to be adherent to the paracolic fat and omentum. This was carefully taken down using the laparoscopic yesica connected to Bovie. The fundus was then retracted superiorly and further taken down of omental adhesions was done until the infundibulum was identified. This was then grasped and retracted inferolaterally to expose the hepatocystic triangle. The visceral peritoneum covering the triangle was scored to expose the cystic duct and cystic artery as well. This was taken distally towards the liver to the gallbladder bed. The proximal gallbladder was lifted from its bed to establish the critical view of safety. The cystic duct and cystic artery were then clipped, with the cystic duct clipped at 4 points, followed by transection, leaving 3 clips at the cystic duct stump. The cystic artery was clipped at 3 points, followed by transection, leaving 2 clips at the cystic artery stump. The gallbladder was then resected from its bed in antegrade fashion using the hook dissector connected to monopolar cautery. Before this was completed, the cystic duct stump and artery were carefully inspected and were noted to be intact. A small amount of blood in the Morison's pouch was suctioned. The gallbladder was then completely resected from the liver and placed in an Endobag. The organ was extracted via the subxiphoid incision, and the pneumoperitoneum was evacuated. All the ports were initially 1st removed and then pneumoperitoneum was evacuated. The wounds were closed with 1 [id number]-up-rdxpe Vicryl 0 suture for the fascia of the subxiphoid incision and subcuticular Biosyn 4-0 suture for the skin. The wound closure was reinforced with Dermabond. The patient was successfully extubated and transferred to the post-anesthesia care unit in satisfactory condition. Estimated blood loss was about 2 mL. Wound class clean-contaminated. The patient received 2 g of Ancef prior to the start of the procedure. Mo [id number] MTDD
--- NOTE | 2016-08-20 16:50 | PATH ---
Surgical Pathology Report Patient Name: CHAPARRO DONOVAN Med. Rec. #: [id number] /Age/Gender: 1940 (Age: 76) / M Account: [id number] Location: [facility] MED/SURG Taken: 08/18/2016 Received: 08/19/2016 Reported: 08/20/2016 Physicians: Joselito Tobar M.D. Specimen(s) Received GALLBLADDER Clinical History Acute cholecystitis due to biliary calculus Final Diagnosis GALLBLADDER, CHOLECYSTECTOMY: CHRONIC CHOLECYSTITIS, AND CHOLELITHIASIS. Electronically Signed Douglas Bernard M.D. Gross Description Received in formalin, labeled "gallbladder," is a 8.5 x 2.8 x 2.5 cm. gallbladder with a 0.2 cm. in length portion of cystic duct attached. The outer surface is lawrence-manrique and varies from smooth to shaggy. The lumen contains green, tenacious bile as well as 3 brown, irregular choleliths ranging from 0.4-1.1 cm in greatest dimension. The mucosa is green and velvety. The wall of the gallbladder averages 0.1 cm. in thickness. Hog Ribber sections are submitted in one cassette. 08/19/201608/19/2016
== END 2016-08-19 14:23 | disposition home or self-care (01) | DRG 854 ==
LOC: JER 21:24 → JERBED 08-11 01:11 → J7W 08-11 02:38 → J4W 08-12 21:06 → J7W 08-17 14:13
PROVIDERS: ADMIT Internal Medicine; ATTEND Registered Nurse
PROC: 0F798DZ Dilation of Common Bile Duct with Intraluminal Device, Via Natural or Artificial Opening Endoscopic (ICD-10-PCS; 2016-08-12)
PROC: 0FC98ZZ Extirpation of Matter from Common Bile Duct, Via Natural or Artificial Opening Endoscopic (ICD-10-PCS; principal; 2016-08-12 11:00)
PROC: 0FT44ZZ Resection of Gallbladder, Percutaneous Endoscopic Approach (ICD-10-PCS; 2016-08-18)
DX: A41.89 Other specified sepsis (principal); K80.42 Calculus of bile duct with acute cholecystitis without obstruction; B02.29 Other postherpetic nervous system involvement; I47.1 Supraventricular tachycardia; R65.20 Severe sepsis without septic shock; I10 Essential (primary) hypertension; K21.9 Gastro-esophageal reflux disease without esophagitis; E87.6 Hypokalemia; R00.2 Palpitations; R94.31 Abnormal electrocardiogram [ECG] [EKG]; Z87.442 Personal history of urinary calculi; Z87.11 Personal history of peptic ulcer disease; Z01.810 Encounter for preprocedural cardiovascular examination
CPT/HCPCS: 36415; 71010-TC; 74181-TC; 76000-TC; 76705-TC; 78452-TC; 80048; 80053; 80076; 81003; 82150; 82272; 82550; 83036; 83605; 83690; 83735; 84100; 84484; 85025; 85027; 85610; 85730; 86140; 86704; 86706; 86708; 86803; 86850; 86900; 86901; 87040; 87086; 87340; 88304-TC; 93005; 93010; 93017; 93306-TC; 94760; 99282-25; A9502; J1245; J1644

== ENCOUNTER 2019-06-15 08:43 | Day surgery (SDC) | payer OTHER, BC ==
[2019-06-14 13:20] VITALS: BMI 21.8
--- NOTE | 2019-06-14 15:21 | HP ---
- Patient Scheduled date of Surgery: 06/15/19 Scheduled Surgical Procedure: Phacoemulsification and cataract extraction with PCIOL Affected Eye: Left Chief Complaint (Indication for surgery): Decreased vision affecting ADLs - Ocular History Other Eye History: Other (dry ARMD , blepharitis) Eye Medications: vigamox 0/3 Previous Eye Surgery: none - Medical History Illnesses: Hypertension, GI Disorders Current Medications: Ambulatory Orders Pantoprazole Sodium 40 mg PO DAILY 06/14/19 Allergies/Adverse Reactions: Allergies Allergy/AdvReac Type Severity Reaction Status Date / Time No Known Allergies Allergy Verified 12/04/15 20:28 Ocular Examination - Best Corrected Visual Acuity Distance: Right eye: 20/50 Distance: Left eye: 20/100 - External/Slit Lamp Examination Abnormalities: crusted lashes - Intraocular Pressure Intraocular Pressure - Right eye: 14 Intraocular Pressure-Left eye: 14 - Lens Lens: 2-3+ NS - Vitreous/Retina Vitreous/Retina: C:D 0.2 soft drusen medium, v copperwiring, p wnl - Special Examination M - Right eye: +2.75-1.75 x 090 M - Left eye: +1.25-2.25 x 095 K - Right eye: 42.5/43.75 x175 K - Left eye: 43.25/44.25 x 005 AL - Right eye: 23.21 AL - Left eye: 22.96 IOL bag: +22.5 AUOOTO IOL sulcus: +21.5 MN60 AC IOL AC: +18.5 MTA 4UO - Impression Impression: Cataract Left Eye - Plan Plan: Phacoemulsification and cataract extraction - IOL Left eye Post-hospital care will be provided in office on: 06/16/19
--- NOTE | 2019-06-15 07:21 | HP ---
History & Physical Update - History History: No Change - Physical Physical: No Change - Assessment Assessment: No Change - Plan Plan: No Change (H and P reviewed from Dr. Allen from 06/02/19 no changes)
[~2019-06-15 08:43] MED LIST: ACETAMINOPHEN 325 MG TABLET (FP) PO PRN; KETOROLAC TROMETHAMINE 0.5% EYE DROP 1 DROP DROPS OP SCH; PHENYLEPHRINE 2.5% OPHTH SOLN 15 ML BOTTLE OP SCH; TOBRAMYCIN/DEXAMETHASONE OPHTH. OINTMENT 1 TUBE TP ONE
[2019-06-15] MEDS ORDERED: KETOROLAC TROMETHAMINE 0.5% EYE DROP 1 DROP DROPS ONE (10:08)
[2019-06-15] MEDS ORDERED: CIPROFLOXACIN HCL 0.3% OPHTH 2.5ML BOTTLE ONE (10:08)
[2019-06-15] MEDS ORDERED: PHENYLEPHRINE 2.5% OPHTH SOLN 15 ML BOTTLE ONE (10:08)
[2019-06-15] MEDS ORDERED: TROPICAMIDE 1% OPHTH SOLN 15 ML BOTTLE ONE (10:08)
[2019-06-15] MEDS: TROPICAMIDE 1% OPHTH SOLN 15 ML BOTTLE OP SCH ×2 (10:10→10:31)
[2019-06-15] MEDS: CIPROFLOXACIN HCL 0.3% OPHTH 2.5ML BOTTLE OP SCH ×2 (10:10→10:30)
[2019-06-15] MEDS ORDERED: MIDAZOLAM HCL 2 MG/2 ML SINGLE DOSE VIAL ONE (10:58)
[2019-06-15] MEDS ORDERED: TETRACAINE 0.5% OPHTH SOLN 2 ML BOTTLE TP ONE (10:59)
[2019-06-15] MEDS ORDERED: POVIDONE-IODINE 5% OPHTHALMIC PREP 30 ML SOLUTION OS ONE (11:00)
[2019-06-15 11:06] VITALS: TEMP 98.2
[2019-06-15] MEDS ORDERED: BSS (NA/CA/MG/K) BALANCED SALT SOLUTION OPHTH SOLN 15 ML BOTTLE OS ONE (11:08)
[2019-06-15] MEDS ORDERED: CHONDROITIN SU A/HYALUR SOD 1 KIT IO ONE ×2 (11:08)
[2019-06-15] MEDS ORDERED: LIDOCAINE HCL 1% PRESERVATIVE FREE - 30ML VIAL IO ONE (11:08)
[2019-06-15] MEDS ORDERED: EPINEPHrine/PF 1 MG/1 ML (1:1,000) AMPULE SQ ONE (11:17)
[2019-06-15] MEDS ORDERED: TOBRAMYCIN/DEXAMETHASONE OPHTH. OINTMENT 1 TUBE TP ONE (11:43)
--- NOTE | 2019-06-15 11:49 | OP ---
Ophthalmology Operative Note Pre-Operative Diagnosis: Cataract Affected Eye: Left Operation: Phacoemulsification and cataract extraction with PCIOL Findings: NS cataract left eye Post-Operative Diagnosis: Same as Pre-op School Occupational Therapist: None Anesthesiologist: Molly Snow MD Anesthesia: Topical Specimens Removed: none Estimated blood loss: < 1cc Drains & Tubes with Location: None Operative Report Dictated: Yes
--- NOTE | 2019-06-15 12:52 | OP ---
DATE OF OPERATION: DATE OF DICTATION: 06/15/2019 PREOPERATIVE DIAGNOSIS: Nuclear sclerotic cataract, left eye. POSTOPERATIVE DIAGNOSIS: Nuclear sclerotic cataract, left eye. PROCEDURE: Phacoemulsification and cataract extraction with insertion of posterior chamber intraocular lens, left eye and limbal relaxing incision, left eye. SURGEON: Ana Daniels MD FISH BAIT PROCESSING SUPERVISOR: None. ANESTHESIA: Topical. ANESTHESIOLOGIST: Molly Snow MD OPERATIVE PROCEDURE: In the holding area, the patient's 180-degree meridian and 90-degree meridian were marked with a sterile marking pen while sitting upright. Then the patient received tetracaine eye drops and was brought to the operating room and gently sedated and prepped and draped in the usual sterile fashion so as to expose only the left eye. Ophthalmic Betadine was instilled into the inferior fornix. The lashes were taped out of the surgical field. An eyelid speculum was placed into the left eye. A marker was placed on the eye and used to alba the 5-degree alba as well as the 185-degree alba. Around the 185-degree alba, approximately 27.5 degrees were marked on either side of that 185 alba, and a thanh blade set to 600 microns was then used to create a limbal relaxing incision over approximately 55 degrees . The paracentesis was then made in inferior clear cornea at the limbus, 0.2 mL of nonpreserved lidocaine 1% lidocaine was injected into the anterior chamber. A 2.4-mm keratome was then used to create the main incision at the 5-degree alba in temporal clear cornea at the limbus. A continuous curvilinear capsulorrhexis was performed using a cystotome and Utrata forceps. Hyrodissection of the lens cortex was performed using BSS on a cannula until the nucleus was noted to be freely rotating. The phacoemulsification tip was then inserted via the main wound and used to sculpt 2 perpendicular grooves into the lens nucleus. The nucleus was cracked into 4 quadrants using 2 instruments. Each quadrant was lifted out of the capsule into the iris plane and individually phacoemulsified. The remaining cortical material was then aspirated using irrigation and aspiration port. The capsular bag was inflated using Provisc, and a preloaded Hoya lens model [id number], power +22.5 diopter was injected into the capsular bag and centered using a Sinskey hook. The residual viscoelastic material was removed from the anterior chamber using irrigation and aspiration. The wound edges were hydrated using BSS. The wound was tested for leakage. It was found to be watertight. Tobradex ointment was placed in the eye, and a speculum was removed from the eye, and the eyelid was closed. A sterile dressing and shield were placed over the eye, and the patient was transferred to the recovery room in stable condition and told to follow up in 1 day. ANA DANIELS M.D. [id number]
[2019-06-15 13:47] VITALS: BP 142/94; PULSE 82
== END 2019-06-15 12:50 | disposition home or self-care (01) ==
LOC: JASU-SURG 08:43 → EDBD 12:00 → JASU-SURG 12:50
PROVIDERS: ATTEND Ophthalmology
PROC: 08RK3JZ Replacement of Left Lens with Synthetic Substitute, Percutaneous Approach (ICD-10-PCS; principal; 2019-06-15 11:00)
DX: H25.12 Age-related nuclear cataract, left eye (principal)

== ENCOUNTER 2019-07-27 06:09 | Day surgery (SDC) | payer OTHER, BC ==
[2019-07-26 12:03] VITALS: BMI 21.8
[~2019-07-27 06:09] MED LIST changes: -KETOROLAC TROMETHAMINE 0.5% EYE DROP 1 DROP DROPS OP SCH; -PHENYLEPHRINE 2.5% OPHTH SOLN 15 ML BOTTLE OP SCH; +TOBRAMYCIN/DEXAMETHASONE OPHTH. OINTMENT 1 TUBE OD ONE; -TOBRAMYCIN/DEXAMETHASONE OPHTH. OINTMENT 1 TUBE TP ONE
[2019-07-27] MEDS ORDERED: CIPROFLOXACIN HCL 0.3% OPHTH 2.5ML BOTTLE ONE (06:40)
[2019-07-27] MEDS ORDERED: PHENYLEPHRINE 2.5% OPHTH SOLN 15 ML BOTTLE ONE (06:40)
[2019-07-27] MEDS ORDERED: TROPICAMIDE 1% OPHTH SOLN 15 ML BOTTLE ONE (06:40)
[2019-07-27] MEDS ORDERED: KETOROLAC TROMETHAMINE 0.5% EYE DROP 1 DROP DROPS ONE (06:49)
[2019-07-27] MEDS: KETOROLAC TROMETHAMINE 0.5% EYE DROP 1 DROP DROPS OP SCH ×3 (06:50→07:00)
[2019-07-27] MEDS: CIPROFLOXACIN HCL 0.3% OPHTH 2.5ML BOTTLE OP SCH ×3 (06:50→07:00)
[2019-07-27] MEDS: TROPICAMIDE 1% OPHTH SOLN 15 ML BOTTLE OP SCH ×3 (06:50→07:00)
[2019-07-27] MEDS: PHENYLEPHRINE 2.5% OPHTH SOLN 15 ML BOTTLE OP SCH ×3 (06:50→07:00)
[2019-07-27] MEDS ORDERED: TOBRAMYCIN/DEXAMETHASONE OPHTH. OINTMENT 1 TUBE ONE (07:08)
[2019-07-27] MEDS ORDERED: TETRACAINE 0.5% OPHTH SOLN 2 ML BOTTLE ONE (07:09)
[2019-07-27] MEDS ORDERED: EPINEPHrine/PF 1 MG/1 ML (1:1,000) AMPULE ONE (07:09)
[2019-07-27] MEDS ORDERED: LIDOCAINE HCL/PF 1% SDV 5ML VIAL ONE (07:09)
[2019-07-27] MEDS ORDERED: TRYPAN BLUE 0.5 ML DISP.SYRIN ONE (07:09)
[2019-07-27] MEDS ORDERED: ACETYLCHOLINE 1:100 INTRA-OCUL 20 MG/2 ML KIT ONE (07:09)
[2019-07-27] MEDS ORDERED: POVIDONE-IODINE 5% OPHTHALMIC PREP 30 ML SOLUTION ONE (07:10)
--- NOTE | 2019-07-27 07:18 | HP ---
- Patient Scheduled date of Surgery: 07/28/19 Scheduled Surgical Procedure: Phacoemulsification and cataract extraction with PCIOL Affected Eye: Right Chief Complaint (Indication for surgery): Decreased vision affecting ADLs - Ocular History Other Eye History: Other (ARMD) Eye Medications: vigamox Previous Eye Surgery: s/p ce/pciol OS - Medical History Illnesses: Hypertension, Other (gerd) Current Medications: Ambulatory Orders Pantoprazole Sodium 40 mg PO DAILY 06/14/19 Allergies/Adverse Reactions: Allergies Allergy/AdvReac Type Severity Reaction Status Date / Time No Known Allergies Allergy Verified 07/27/19 07:06 Ocular Examination - Best Corrected Visual Acuity Distance: Right eye: 20/50 Distance: Left eye: 20/25 - External/Slit Lamp Examination Abnormalities: none - Intraocular Pressure Intraocular Pressure - Right eye: 13 Intraocular Pressure-Left eye: 13 - Lens Lens: 2-3+ NS - Vitreous/Retina Vitreous/Retina: C:D 0.2 m/v/p wnl - Special Examination M - Right eye: +3.00-1.50 x 92 M - Left eye: -1.25 K - Right eye: 42.75/44 x 175 K - Left eye: 43/44.25 x 096 AL - Right eye: 23.27 AL - Left eye: 23.38 IOL bag: +21.5 AUOOTO IOL sulcus: +20.5 MN60AC IOL AC: +17.5 MTA 4uo - Impression Impression: Cataract Right Eye - Plan Plan: Phacoemulsification and cataract extraction - IOL Right eye Post-hospital care will be provided in office on: 07/28/19
--- NOTE | 2019-07-27 07:20 | HP ---
History & Physical Update - History History: No Change - Physical Physical: No Change - Assessment Assessment: No Change - Plan Plan: No Change (H and P reviewed from Dr. Drew Allen 07/19/19 no changes)
[2019-07-27] MEDS ORDERED: ONDANSETRON 4 MG/2 ML VIAL IVPUSH PRN (07:32)
[2019-07-27] MEDS ORDERED: oxyCODONE HCL 5 MG TABLET PO PRN (07:32)
[2019-07-27] MEDS ORDERED: TETRACAINE 0.5% OPHTH SOLN 2 ML BOTTLE TP ONE (07:35)
[2019-07-27] MEDS ORDERED: MIDAZOLAM HCL 2 MG/2 ML SINGLE DOSE VIAL ONE (07:40)
[2019-07-27] MEDS ORDERED: LIDOCAINE HCL 1% PRESERVATIVE FREE - 30ML VIAL IO ONE (07:51)
[2019-07-27] MEDS ORDERED: CHONDROITIN SU A/HYALUR SOD 1 KIT IO ONE (07:52)
[2019-07-27] MEDS ORDERED: EPINEPHrine/PF 1 MG/1 ML (1:1,000) AMPULE SQ ONE (07:58)
[2019-07-27] MEDS ORDERED: TOBRAMYCIN/DEXAMETHASONE OPHTH. OINTMENT 1 TUBE OD ONE (08:22)
--- NOTE | 2019-07-27 08:40 | OP ---
Ophthalmology Operative Note Pre-Operative Diagnosis: Cataract Affected Eye: Right Operation: Phacoemulsification and cataract extraction with PCIOL Findings: NS cataract right eye Post-Operative Diagnosis: Same as Pre-op Diesel Tractor Operator: None Anesthesiologist: Mariaelena Padilla Anesthesia: Local, Topical Specimens Removed: none Estimated blood loss: < 1 cc Drains & Tubes with Location: none Operative Report Dictated: Yes
[2019-07-27 09:08] VITALS: TEMP 97.5
[2019-07-27 09:25] VITALS: BP 134/73; PULSE 74
[2019-07-27] MEDS ORDERED: CHONDROITIN SU A/HYALUR SOD 1 KIT ONE (11:02)
--- NOTE | 2019-07-27 11:47 | OP ---
DATE OF OPERATION: DATE OF DICTATION: 07/27/2019 PREOPERATIVE DIAGNOSIS: Nuclear sclerotic cataract, right eye. POSTOPERATIVE DIAGNOSIS: Nuclear sclerotic cataract, right eye. PROCEDURE: Phacoemulsification and cataract extraction with insertion of posterior chamber intraocular lens, right eye. SURGEON: Ana Daniels MD STAMPING MACHINE OPERATOR: None. ANESTHESIA: Topical. ANESTHESIOLOGIST: LEONELA Neely OPERATIVE PROCEDURE: The patient received Tetracaine eye drops and was gently sedated and prepped and draped in the usual sterile fashion so as to expose only the right eye. Ophthalmic Betadine was instilled into the inferior fornix and lashes were taped out of the surgical field. An eyelid speculum was placed into the right eye. Paracentesis was made in superior temporal clear cornea at the limbus. Then 0.5 mL of nonpreserved lidocaine 1% was injected into the anterior chamber and then 1 mL of dilute epinephrine 1:10,000 was injected into the anterior chamber to improve pupillary dilation. Viscoelastic material was instilled into the anterior chamber via the paracentesis. A 2.4-mm keratome blade was then used to create the main incision in temporal clear cornea at the limbus. A continuous curvilinear capsulorrhexis was performed using a cystotome and Utrata forceps. Hydrodissection of the lens cortex was performed using BSS on a cannula until the nucleus was noted to be freely rotating. The phacoemulsification tip was then inserted via the main wound and used to scope 2 perpendicular grooves into the lens nucleus. The nucleus was cracked into 4 quadrants. Each quadrant was lifted out of the capsule into the iris plane and individually phacoemulsified. The remaining cortical material was then aspirated using the irrigation/aspiration port. The capsular bag was inflated using ProVisc and a preloaded AcrySof lens model [id number] power +21.5 diopters was injected into the capsular bag. It was centered using a Sinskey hook. The residual viscoelastic material was removed from the anterior chamber using irrigation and aspiration. The wound edges were hydrated using BSS. The wound was tested for leakage and was found to be watertight. Tobradex ointment was placed in the eye, and the speculum was removed from the eye, and the eyelid was closed. A sterile dressing and shield were placed over the eye. The patient was transferred to the recovery room in stable condition, told to follow up in 1 day. ANA DANIELS M.D. [id number]
== END 2019-07-27 09:27 | disposition home or self-care (01) ==
LOC: JASU-SURG 06:09
PROVIDERS: ATTEND Ophthalmology
PROC: 08RJ3JZ Replacement of Right Lens with Synthetic Substitute, Percutaneous Approach (ICD-10-PCS; principal; 2019-07-27 07:30)
DX: H25.011 Cortical age-related cataract, right eye (principal); E11.9 Type 2 diabetes mellitus without complications; K21.9 Gastro-esophageal reflux disease without esophagitis

== ENCOUNTER 2022-08-28 22:50 | Inpatient (IN) | payer OTHER, BC ==
[2022-08-28 22:58] VITALS: BMI 21.8
[2022-08-29] MEDS ORDERED: FAMOTIDINE 20 MG/50 ML IVPB 20 MG/50 ML MG IVPB ONE ×2 (00:06→00:18)
[2022-08-29] MEDS ORDERED: ONDANSETRON 4 MG/2 ML VIAL IVPUSH ONE (00:06)
[2022-08-29] MEDS ORDERED: LACTATED RINGERS SOLUTION 1,000 ML/1,000 ML INFUS.BAG IV SCH ×3 (00:15→13:45)
[2022-08-29] MEDS ORDERED: ONDANSETRON 4 MG/2 ML VIAL ONE (00:17)
[2022-08-29 00:21] LABS: BASO % 0.5 % (0-2.0); EOS % 0.3 % (0-4.5); HEMATOCRIT 37.5 % (35.4-49); LYMPH % 12.3 % (8-40); MCH 33.2 pg (25.7-33.7); MCHC 34.7 g/dl (32.0-35.9); MEAN CELL VOLUME 95.7 fl (80-96); MONO % 8.5 % (3.8-10.2); NEUT % 78.4 % (42.8-82.8); PLATELET COUNT 248 10^3/uL (134-434); RBC 3.92 M/mm3 (4.00-5.60); RDW 13.6 % (11.9-15.9)
[2022-08-29 00:30] LABS: INR 1.11 (0.83-1.09); PROTHROMBIN TIME (PATIENT) 12.9 SEC (9.7-13.0)
[2022-08-29 00:32] LABS: ACTIVATED PTT 33.1 SECONDS (25.2-36.5)
[2022-08-29 00:50] LABS: CALCIUM 9.6 mg/dL (8.5-10.1)
[2022-08-29 00:51] LABS: ALBUMIN 3.8 g/dl (3.4-5.0); BLOOD UREA NITROGEN 21.1 mg/dL (7-18)
[2022-08-29 00:54] LABS: CREATININE 0.9 mg/dL (0.55-1.3)
[2022-08-29 00:55] LABS: BILIRUBIN,TOTAL 0.4 mg/dL (0.2-1); TOT PROT 7.9 g/dl (6.4-8.2)
[2022-08-29 05:55] LABS: BASO % 0.6 % (0-2.0); EOS % 0.2 % (0-4.5); HEMATOCRIT 35.3 % (35.4-49); LYMPH % 22.8 % (8-40); MCH 32.6 pg (25.7-33.7); MEAN CELL VOLUME 95.9 fl (80-96); MONO % 11.8 % (3.8-10.2); NEUT % 64.6 % (42.8-82.8); PLATELET COUNT 234 10^3/uL (134-434); RBC 3.69 M/mm3 (4.00-5.60); RDW 13.9 % (11.9-15.9); WHITE BLOOD COUNT 5.1 K/mm3 (4.0-10.0)
[2022-08-29] MEDS ORDERED: CEFTRIAXONE 1,000 MG in DEXTROSE 5%-WATER - 50 ML IVPB ONE (07:20)
[2022-08-29] MEDS ORDERED: PANTOPRAZOLE SODIUM 40 MG VIAL IVPB ONE (07:20)
[2022-08-29] MEDS ORDERED: PANTOPRAZOLE SODIUM 40 MG VIAL ONE (07:28)
[2022-08-29] MEDS ORDERED: PANTOPRAZOLE SODIUM 40 MG VIAL IVPUSH SCH (10:00)
[2022-08-29] MEDS ORDERED: ONDANSETRON 4 MG/2 ML VIAL IVPUSH PRN (13:43)
[2022-08-29 23:14] VITALS: RESP 18
[2022-08-30] MEDS ORDERED: PANTOPRAZOLE SODIUM 40 MG VIAL IVPUSH SCH (10:00)
[2022-08-30 10:01] LABS: BASO % 0.6 % (0-2.0); EOS % 1.1 % (0-4.5); HEMATOCRIT 34.3 % (35.4-49); HEMOGLOBIN 11.6 GM/dL (11.7-16.9); LYMPH % 18.2 % (8-40); MCH 32.1 pg (25.7-33.7); MCHC 33.7 g/dl (32.0-35.9); MEAN CELL VOLUME 95.1 fl (80-96); MEAN PLT VOLUME 7.4 fl (7.5-11.1); NEUT % 70.1 % (42.8-82.8); PLATELET COUNT 229 10^3/uL (134-434); RDW 13.2 % (11.9-15.9); WHITE BLOOD COUNT 5.2 K/mm3 (4.0-10.0)
[2022-08-30 10:22] LABS: CALCIUM 8.7 mg/dL (8.5-10.1)
[2022-08-30 10:23] LABS: BLOOD UREA NITROGEN 9.4 mg/dL (7-18)
[2022-08-30 10:26] LABS: CREATININE 0.7 mg/dL (0.55-1.3)
[2022-08-30] MEDS ORDERED: POTASSIUM CHLORIDE ORAL LIQUID 20 MEQ/15 ML PO ONE (11:32)
[2022-08-30] MEDS ORDERED: SODIUM CHLORIDE 1,000 ML IV SCH (14:00)
[2022-08-30] MEDS: PANTOPRAZOLE 20 MG TABLET PO SCH (21:18)
[2022-08-31 09:25] LABS: HEMATOCRIT 34.4 % (35.4-49); HEMOGLOBIN 11.6 GM/dL (11.7-16.9); MCH 32.2 pg (25.7-33.7); MCHC 33.7 g/dl (32.0-35.9); MEAN CELL VOLUME 95.5 fl (80-96); MEAN PLT VOLUME 7.5 fl (7.5-11.1); PLATELET COUNT 223 10^3/uL (134-434); RDW 13.3 % (11.9-15.9); WHITE BLOOD COUNT 4.8 K/mm3 (4.0-10.0)
[2022-08-31] MEDS: PANTOPRAZOLE 20 MG TABLET PO SCH (09:33)
[2022-08-31 09:34] LABS: CALCIUM 8.7 mg/dL (8.5-10.1)
[2022-08-31 09:35] LABS: BLOOD UREA NITROGEN 8.9 mg/dL (7-18); MAGNESIUM 1.8 mg/dL (1.8-2.4)
[2022-08-31 09:38] LABS: CREATININE 0.7 mg/dL (0.55-1.3); PHOSPHOROUS 2.7 mg/dL (2.5-4.9)
[2022-08-31 13:37] VITALS: BP 153/86; PULSE 86; TEMP 99
== END 2022-08-31 14:00 | disposition home or self-care (01) | DRG 392 ==
LOC: JER 22:50 → JERBED 08-29 08:37 → UNDOADMIN 08-29 08:43 → J6S 08-29 15:11
PROVIDERS: ADMIT Internal Medicine; ATTEND Internal Medicine
DX: A09 Infectious gastroenteritis and colitis, unspecified (principal); K92.0 Hematemesis; K21.9 Gastro-esophageal reflux disease without esophagitis
CPT/HCPCS: 0241U-QW; 36415; 74177-TC; 80048; 80053; 83690; 83735; 84100; 84484; 85025; 85027; 85610; 85730; 86850; 86900; 86901; 93005; 93010; 99285-25; Q9967

== ENCOUNTER 2022-09-18 11:29 | Inpatient (IN) | payer OTHER, BC ==
[2022-09-18 14:28] LABS: BASO % 0.8 % (0-2.0); EOS % 3.5 % (0-4.5); HEMATOCRIT 35.7 % (35.4-49); HEMOGLOBIN 11.7 GM/dL (11.7-16.9); LYMPH % 12.6 % (8-40); MCH 31.1 pg (25.7-33.7); MCHC 32.7 g/dl (32.0-35.9); MEAN CELL VOLUME 95.1 fl (80-96); MEAN PLT VOLUME 7.9 fl (7.5-11.1); MONO % 13.1 % (3.8-10.2); PLATELET COUNT 201 10^3/uL (134-434); RBC 3.75 M/mm3 (4.00-5.60); RDW 14.7 % (11.9-15.9); WHITE BLOOD COUNT 5.9 K/mm3 (4.0-10.0)
[2022-09-18 14:32] LABS: EPI CELLS 2 /uL (0-25.1); HYALINE CASTS 0 /uL (0-3.1); URINE APPEARANCE CLEAR; URINE BACTERIA 1 /uL (0-1359); URINE BILIRUBIN 2+ (NEGATIVE); URINE COLOR DK YELLOW; URINE GLUCOSE (UA) NEGATIVE (NEGATIVE); URINE KETONE NEGATIVE (NEGATIVE); URINE LEUK ESTERASE TRACE (NEGATIVE); URINE NITRITE NEGATIVE (NEGATIVE); URINE PROTEIN TRACE (NEGATIVE); URINE RBC 20 /uL (0-23.9); URINE WBC 14 /uL (0-25.8)
[2022-09-18 14:51] LABS: CALCIUM 8.8 mg/dL (8.5-10.1)
[2022-09-18 14:52] LABS: BLOOD UREA NITROGEN 14.7 mg/dL (7-18)
[2022-09-18 14:55] LABS: CREATININE 0.6 mg/dL (0.55-1.3)
[2022-09-18 14:56] LABS: TOT PROT 6.7 g/dl (6.4-8.2)
[2022-09-18 14:59] LABS: INR 1.33 (0.83-1.09); PROTHROMBIN TIME (PATIENT) 15.4 SEC (9.7-13.0)
[2022-09-18] MEDS ORDERED: PHYTONADIONE 10 MG/1 ML AMP IVPB ONE (16:08)
[2022-09-18] MEDS ORDERED: PIPERACILLIN/TAZOB 3.375 GM 3.375 GM/50 ML BAG IVPB ONE (16:17)
[2022-09-18] MEDS: PIPERACILLIN/TAZOB 3.375 GM 3.375 GM in DEXTROSE 5%-WATER - 50 ML IVPB SCH ×2 (16:19→17:54)
[2022-09-18] MEDS ORDERED: PANTOPRAZOLE SODIUM 40 MG VIAL ONE (17:10)
[2022-09-18] MEDS ORDERED: PHYTONADIONE 10 MG/1 ML AMP ONE (17:10)
[2022-09-18] MEDS: PANTOPRAZOLE SODIUM 40 MG VIAL IVPUSH SCH (17:35)
[2022-09-18 18:03] VITALS: BMI 20.7
[2022-09-18] MEDS: DEXTROSE 5%-0.45% SALINE 1,000 ML IV SCH (18:05)
[2022-09-19] MEDS: PIPERACILLIN/TAZOB 3.375 GM 3.375 GM in DEXTROSE 5%-WATER - 50 ML IVPB SCH ×4 (03:13→17:09)
[2022-09-19] MEDS: DEXTROSE 5%-0.45% SALINE 1,000 ML IV SCH (03:13)
[2022-09-19] MEDS: PANTOPRAZOLE SODIUM 40 MG VIAL IVPUSH SCH (09:22)
[2022-09-19] MEDS ORDERED: PANTOPRAZOLE SODIUM 40 MG VIAL IVPUSH SCH (10:00)
[2022-09-19 10:42] LABS: BASO % 1.2 % (0-2.0); EOS % 4.2 % (0-4.5); HEMOGLOBIN 11.3 GM/dL (11.7-16.9); LYMPH % 18.7 % (8-40); MCH 32.3 pg (25.7-33.7); MCHC 33.3 g/dl (32.0-35.9); MEAN PLT VOLUME 8.1 fl (7.5-11.1); NEUT % 61.9 % (42.8-82.8); PLATELET COUNT 209 10^3/uL (134-434); RBC 3.51 M/mm3 (4.00-5.60); RDW 14.6 % (11.9-15.9); WHITE BLOOD COUNT 4.3 K/mm3 (4.0-10.0)
[2022-09-19 11:14] LABS: CALCIUM 8.8 mg/dL (8.5-10.1)
[2022-09-19 11:15] LABS: ALBUMIN 2.7 g/dl (3.4-5.0); BLOOD UREA NITROGEN 7.9 mg/dL (7-18); TOT PROT 6.2 g/dl (6.4-8.2)
[2022-09-19 11:16] LABS: BILIRUBIN,TOTAL 1.5 mg/dL (0.2-1)
[2022-09-19 11:17] LABS: CREATININE 0.7 mg/dL (0.55-1.3)
[2022-09-19] MEDS: LACTATED RINGERS SOLUTION 1,000 ML/1,000 ML INFUS.BAG IV SCH (13:31)
[2022-09-19 16:51] LABS: INR 1.13 (0.83-1.09); PROTHROMBIN TIME (PATIENT) 13.1 SEC (9.7-13.0)
[2022-09-19 16:54] LABS: ALBUMIN 2.6 g/dl (3.4-5.0)
[2022-09-19 16:56] LABS: BILIRUBIN,DIRECT 0.9 mg/dL (0.0-0.2)
[2022-09-19 16:58] LABS: BILIRUBIN,TOTAL 1.2 mg/dL (0.2-1)
[2022-09-19 16:59] LABS: TOT PROT 6.1 g/dl (6.4-8.2)
[2022-09-19] MEDS ORDERED: PIPERACILLIN/TAZOB 3.375 GM 3.375 GM in DEXTROSE 5%-WATER - 50 ML IVPB SCH (18:00)
[2022-09-19] MEDS: URSODIOL 300 MG CAPSULE PO SCH (22:12)
[2022-09-20] MEDS: PIPERACILLIN/TAZOB 3.375 GM 3.375 GM in DEXTROSE 5%-WATER - 50 ML IVPB SCH ×2 (03:20→09:29)
[2022-09-20] MEDS: LACTATED RINGERS SOLUTION 1,000 ML/1,000 ML INFUS.BAG IV SCH (06:56)
[2022-09-20] MEDS: PANTOPRAZOLE SODIUM 40 MG VIAL IVPUSH SCH (09:33)
[2022-09-20] MEDS: URSODIOL 300 MG CAPSULE PO SCH ×2 (09:34→21:39)
[2022-09-20 09:38] LABS: BASO % 2.1 % (0-2.0); EOS % 6.8 % (0-4.5); HEMOGLOBIN 10.8 GM/dL (11.7-16.9); INR 1.12 (0.83-1.09); LYMPH % 24.2 % (8-40); MCH 32.5 pg (25.7-33.7); MCHC 33.7 g/dl (32.0-35.9); MEAN CELL VOLUME 96.5 fl (80-96); MONO % 13.5 % (3.8-10.2); NEUT % 53.4 % (42.8-82.8); PLATELET COUNT 212 10^3/uL (134-434); RBC 3.32 M/mm3 (4.00-5.60); RDW 14.2 % (11.9-15.9); WHITE BLOOD COUNT 4.5 K/mm3 (4.0-10.0)
[2022-09-20 09:55] LABS: ALBUMIN 2.6 g/dl (3.4-5.0); CALCIUM 8.6 mg/dL (8.5-10.1)
[2022-09-20 09:56] LABS: BLOOD UREA NITROGEN 13.3 mg/dL (7-18)
[2022-09-20 09:58] LABS: ALBUMIN 2.5 g/dl (3.4-5.0)
[2022-09-20 09:59] LABS: CREATININE 0.9 mg/dL (0.55-1.3)
[2022-09-20 10:00] LABS: BILIRUBIN,TOTAL 1.2 mg/dL (0.2-1); TOT PROT 5.8 g/dl (6.4-8.2)
[2022-09-20 10:01] LABS: BILIRUBIN,DIRECT 0.8 mg/dL (0.0-0.2)
[2022-09-20 10:03] LABS: BILIRUBIN,TOTAL 1.4 mg/dL (0.2-1); TOT PROT 5.8 g/dl (6.4-8.2)
[2022-09-21] MEDS: PIPERACILLIN/TAZOB 3.375 GM 3.375 GM in DEXTROSE 5%-WATER - 50 ML IVPB SCH ×2 (01:35→09:54)
[2022-09-21 09:30] LABS: BASO % 1.5 % (0-2.0); EOS % 5.7 % (0-4.5); HEMATOCRIT 35.3 % (35.4-49); HEMOGLOBIN 11.4 GM/dL (11.7-16.9); LYMPH % 22.5 % (8-40); MCH 30.8 pg (25.7-33.7); MCHC 32.3 g/dl (32.0-35.9); MEAN CELL VOLUME 95.5 fl (80-96); MEAN PLT VOLUME 7.8 fl (7.5-11.1); MONO % 10.7 % (3.8-10.2); NEUT % 59.6 % (42.8-82.8); PLATELET COUNT 213 10^3/uL (134-434); RDW 14.4 % (11.9-15.9); WHITE BLOOD COUNT 4.7 K/mm3 (4.0-10.0)
[2022-09-21 09:54] LABS: ALBUMIN 2.6 g/dl (3.4-5.0)
[2022-09-21] MEDS: PANTOPRAZOLE SODIUM 40 MG VIAL IVPUSH SCH (09:54)
[2022-09-21] MEDS: URSODIOL 300 MG CAPSULE PO SCH ×2 (09:54→22:10)
[2022-09-21 09:56] LABS: BILIRUBIN,DIRECT 0.6 mg/dL (0.0-0.2)
[2022-09-21 09:57] LABS: ALBUMIN 2.7 g/dl (3.4-5.0)
[2022-09-21 09:58] LABS: CALCIUM 8.7 mg/dL (8.5-10.1); TOT PROT 6.4 g/dl (6.4-8.2)
[2022-09-21 09:59] LABS: CREATININE 0.8 mg/dL (0.55-1.3); MAGNESIUM 1.7 mg/dL (1.8-2.4)
[2022-09-21 10:01] LABS: BLOOD UREA NITROGEN 13.2 mg/dL (7-18); TOT PROT 6.3 g/dl (6.4-8.2)
[2022-09-21 10:03] LABS: BILIRUBIN,TOTAL 0.9 mg/dL (0.2-1)
[2022-09-22] MEDS: URSODIOL 300 MG CAPSULE PO SCH ×2 (10:22→21:47)
[2022-09-22] MEDS: PANTOPRAZOLE SODIUM 40 MG VIAL IVPUSH SCH (10:22)
[2022-09-22 10:26] LABS: BILIRUBIN,DIRECT 0.6 mg/dL (0.0-0.2)
[2022-09-22 10:28] LABS: BILIRUBIN,TOTAL 1.1 mg/dL (0.2-1); TOT PROT 6.8 g/dl (6.4-8.2)
[2022-09-22] MEDS ORDERED: ALPRAZolam 0.25 MG TABLET PO ONE (13:00)
[2022-09-22] MEDS ORDERED: FENTANYL CITRATE/PF 50 MCG/ML VIAL ONE (13:55)
[2022-09-22] MEDS ORDERED: ceFAZolin SODIUM 1 GM VIAL IVPB ONE (14:09)
[2022-09-22] MEDS ORDERED: ceFAZolin SODIUM 1 GM VIAL ONE (14:11)
[2022-09-22] MEDS ORDERED: IOHEXOL 180 MG/1 ML ML IJ ONE (14:30)
[2022-09-22] MEDS ORDERED: LACTATED RINGERS SOLUTION 1,000 ML/1,000 ML INFUS.BAG IV SCH ×2 (15:00→23:00)
[2022-09-23 04:25] VITALS: RESP 18; TEMP 97.8
[2022-09-23] MEDS: URSODIOL 300 MG CAPSULE PO SCH (09:02)
[2022-09-23] MEDS: PANTOPRAZOLE SODIUM 40 MG VIAL IVPUSH SCH (09:02)
[2022-09-23 11:13] LABS: BASO % 0.6 % (0-2.0); EOS % 1.1 % (0-4.5); HEMATOCRIT 29.2 % (35.4-49); HEMOGLOBIN 9.8 GM/dL (11.7-16.9); LYMPH % 20.7 % (8-40); MCH 32.8 pg (25.7-33.7); MCHC 33.5 g/dl (32.0-35.9); MEAN PLT VOLUME 8.1 fl (7.5-11.1); MONO % 7.4 % (3.8-10.2); NEUT % 70.2 % (42.8-82.8); PLATELET COUNT 271 10^3/uL (134-434); RBC 2.98 M/mm3 (4.00-5.60); RDW 14.3 % (11.9-15.9); WHITE BLOOD COUNT 9.1 K/mm3 (4.0-10.0)
[2022-09-23 11:33] LABS: CREATININE 0.7 mg/dL (0.55-1.3)
[2022-09-23 11:34] LABS: BILIRUBIN,TOTAL 0.8 mg/dL (0.2-1); CALCIUM 8.6 mg/dL (8.5-10.1); TOT PROT 6.1 g/dl (6.4-8.2)
[2022-09-23 11:35] LABS: ALBUMIN 2.7 g/dl (3.4-5.0)
[2022-09-23 11:38] LABS: BLOOD UREA NITROGEN 42.6 mg/dL (7-18)
[2022-09-23] MEDS ORDERED: LACTATED RINGERS SOLUTION 1,000 ML/1,000 ML INFUS.BAG IV SCH (12:06)
[2022-09-23 15:00] VITALS: BP 111/72; PULSE 90
[2022-09-23] MEDS ORDERED: URSODIOL 300 MG CAPSULE PO SCH (22:00)
== END 2022-09-23 16:26 | disposition home or self-care (01) | DRG 445 ==
LOC: JER 11:29 → JERBED 16:18 → J6S 09-19 01:08
PROVIDERS: ADMIT Pediatrics; ATTEND Family Medicine
PROC: 0FC98ZZ Extirpation of Matter from Common Bile Duct, Via Natural or Artificial Opening Endoscopic (ICD-10-PCS; principal; 2022-09-22 13:15)
DX: K80.51 Calculus of bile duct without cholangitis or cholecystitis with obstruction (principal); B02.29 Other postherpetic nervous system involvement; K21.9 Gastro-esophageal reflux disease without esophagitis; I10 Essential (primary) hypertension; R74.8 Abnormal levels of other serum enzymes; Z87.11 Personal history of peptic ulcer disease; R79.89 Other specified abnormal findings of blood chemistry; K83.8 Other specified diseases of biliary tract
CPT/HCPCS: 0241U-QW; 36415; 74181-TC; 74182-TC; 76000-TC-FY; 76700-TC; 80053; 80076; 81003; 82150; 83690; 83735; 85025; 85610; 86140; 86301; 87086; 93005; 93010; 99285-25; A9579